=== PATIENT | male | born 1950 | race Caucasian/White ===

== ENCOUNTER 2020-03-28 07:07 | Outpatient (REF) | payer MEDICARE, SELFPAY ==
[2020-03-28 11:51] LABS: Cholesterol 217 mg/dL; Glucose Fasting 107 mg/dL (60-99); HDL Cholesterol 71 mg/dL; LDL Cholesterol Calculated 109 mg/dl; Triglycerides 185 mg/dL
[2020-03-28 11:52] LABS: Estimated Average Glucose 128 mg/dL; Hemoglobin A1c % 6.1 %
== END 2020-03-28 07:08 | disposition home or self-care (01) ==
LOC: HO.HMGCLDS 07:07
PROVIDERS: PCP Internal Medicine; Visit Provider Internal Medicine
DX: I10 Essential (primary) hypertension (principal); E78.5 Hyperlipidemia, unspecified; R73.01 Impaired fasting glucose
CPT/HCPCS: 80061; 82947; 83036

== ENCOUNTER 2020-03-30 11:25 | Outpatient (REF) | payer MEDICARE, SELFPAY ==
--- NOTE | 2020-03-30 11:30 | XR_ITS ---
EXAMINATION: XR KNEE, RIGHT CLINICAL INFORMATION: Pain. Strain of muscle and tendon COMPARISON: 06/02/2014 TECHNIQUE: Four views of the right knee. FINDINGS: Bones have normal alignment, and joint spaces are maintained. No acute fracture or subluxation. No significant arthritic deformity. There is negligible osteophyte formation at the upper pole of the patella. Small knee joint effusion is evident. No suspicious lytic or osteoblastic lesion. XR/XR knee RT 4V IMPRESSION: * No acute osseous injury at the right knee. No fracture or subluxation. * Small knee joint effusion is present.
== END 2020-03-30 11:26 | disposition home or self-care (01) ==
LOC: HO.HMGCX 11:25
PROVIDERS: PCP Internal Medicine; Visit Provider Internal Medicine
DX: S86.911A Strain of unspecified muscle(s) and tendon(s) at lower leg level, right leg, initial encounter (principal)
CPT/HCPCS: 73564

== ENCOUNTER 2020-08-15 06:31 | Day surgery (SDC) | payer MEDICARE, SELFPAY ==
[2020-08-09 15:17] VITALS: BMI 40.0
[2020-08-15] MEDS: Lactated Ringers 1,000 ML 100 ML IVCONT (06:30)
[2020-08-15 06:33] VITALS: BP 148/86; PULSE 56; RESP 20; TEMP 36.8; O2SAT 95
--- NOTE | 2020-08-15 07:31 | MHC.SHP ---
Pre-Procedural Eval Section B Chief Complaint: screening Details of Present Illness: see H&P Relevant Family History (Specify if Yes): No Relevant Social History: None Present Medications: see Short Stay Collaborative assessment Medical History: No relevant PMH History of Previous Operations: No relevant previous surgery Allergies: Allergies Allergy/AdvReac Type Severity Reaction Status Date / Time hydrocodone [From Vicodin] AdvReac Unknown agitation Verified 08/09/20 15:14 Review of Systems Sugical H&P ROS: Negative: Constitution, Cardiovascular, Respiratory, Neurological, Psychiatric, Hem-Onc, Allergic/Immunologic, Gastrointestinal, Genitourinary, Musculoskeletal, Integumentary, Endocrine and Eyes/Ears/Nose/Throat Exam Surgical H&P Exam: Normal: HEENT, Normal: Heart, Normal: Lungs, Normal: Extremities, Normal: Abdomen, Normal: Skin and Normal: Neurological Plan Diagnosis/Plan: Unchanged I have reviewed the history and physical and performed a pertinent physical examination on my patient. No changes have occurred unless specified.
--- NOTE | 2020-08-15 07:39 | P.CONAN_ITS ---
HPI - Anesthesia Eval Consult details Narrative: 69 yo male patient here for colonoscopy PMFSH Active Problems Active Problems: All Active Problems (Updated 03/30/20 @ 11:13 by Dotty Savage MD) Strain of right knee (Acute) Intolerance to BiPAP/CPAP (Acute) HERBERTH on CPAP (Acute) Irritable bowel syndrome with diarrhea (Acute) Essential hypertension (Acute) Impaired fasting glucose (Acute) Dyslipidemia (Acute) Past Medical History Medical History (Updated 08/15/20 @ 07:48 by Lucie Gallego) Bradycardia Dyslipidemia Essential hypertension Impaired fasting glucose Increased BMI Intolerance to BiPAP/CPAP Irritable bowel syndrome with diarrhea HERBERTH on CPAP Strain of right knee Family History Family History Father HTN (hypertension) Borderline diabetes mellitus Function kidney decreased Mother HTN (hypertension) Breast cancer Brother No problems noted. Brother No problems noted. Family history of problems with anesthesia: No Surgical History Surgical History (Updated 08/15/20 @ 07:49 by Lucie Gallego) H/O colonoscopy History of excision of pilonidal cyst History of Problems with Anesthesia: No Social History Social History Are you a primary care transitions nurse to a significant other at home: No Do you presently have visiting nurse or other home services: No Alcohol intake: current Smoking Status: Former smoker Smoking Quit Date: 2012 Advance Directives: No Advance Directives Information Provided: No Advance Directives on File: No Recently lost weight without trying: No Meds Allergies Allergy/AdvReac Type Severity Reaction Status Date / Time hydrocodone [From Vicodin] AdvReac Unknown agitation Verified 08/09/20 15:14 Active Medications: Current Medications Generic Name Dose Route Start Last Admin Trade Name Freq PRN Reason Stop Dose Admin Lactated Ringer's 1,000 mls @ 100 mls/hr 08/15/20 07:45 Lr IVCONT .Q10H ROSA Home Medications Medication Instructions Recorded Confirmed Last Taken Type flu vacc (65yr ml IM 03/30/20 Unknown History up)-MF59C(PF) 60 mcg(15 mcgx4)/0.5 mL IM syringe multivitamin 1 tab PO DAILY 03/30/20 08/09/20 Unknown History Exam Exam Date and Time: August 15, 2020 0739 Height,Weight and Vital Signs: Height 5 ft 6 in Weight 112.491 kg Last Vital Signs Temp 98.3 F 08/15/20 06:33 Pulse 56 08/15/20 06:33 Resp 20 08/15/20 06:33 BP 148/86 H 08/15/20 06:33 Pulse Ox 95 08/15/20 06:33 Airway Mallampati Class: II TM Dist: >3cm Neck ROM: Full Partial: Upper and Lower Loose/Missing/Broken Teeth: Yes (Many missing) Heart: RRR Lungs: CTAB Assessment and Plan Assessment Anesthesia Assessment: Anesthesia Plan Discussed and Chart Reviewed Final Anesthetic Review NPO: Yes ASA Class: III Final Preanesthetic Review: No Changes in Pt Med Stat, Meds/Allgs Chart Reviewed, Consent Obtained/Reviewed and Anes Risks/Benef Reviewed Patient Risk: Intermediate Procedure Risk: Low Assessment/Block/Sedation in SS: Assess/Block/Sedation-SS Anesthetic Plan Anesthetic Plan: MAC: Disposition: Standard PACU
[2020-08-15 08:05] VITALS: BP 98/50; PULSE 55; RESP 14; TEMP 36.2; O2SAT 93
--- NOTE | 2020-08-15 08:05 | PM.OP ---
Brief Operative Note Date of Service: 08/15/20 Pre-op diagnosis: screening Post-op diagnosis: same Procedure: colonoscopy Surgeon: Bob Doe Anesthesia: MAC Estimated blood loss (mL): 2 Pathology: other (polyp cecum) Condition: stable Disposition: PACU
[2020-08-15 08:20] VITALS: BP 115/61; PULSE 50; RESP 17; TEMP 36.2; O2SAT 96
--- NOTE | 2020-08-15 09:28 | OP_ITS ---
SURGEON: Bob Doe MD INDICATIONS: Colon cancer screening and prior history of tubular adenomas. PREOPERATIVE DIAGNOSIS: POSTOPERATIVE DIAGNOSIS: PROCEDURE PERFORMED: Colonoscopy to the cecum with biopsy. ESTIMATED BLOOD LOSS: COMPLICATIONS: ANESTHESIA: ASSISTANTS: SPECIMENS: MEDICATIONS: Monitored anesthesia care. DESCRIPTION OF PROCEDURE: History and physical performed. The risks and benefits of the procedure were explained to the patient. Informed consent was obtained. The patient was placed in left lateral decubitus position. A digital rectal exam was performed and was found to be normal. The Olympus pediatric video colonoscope was introduced into the rectum and advanced to the cecum without difficulty. The cecum was identified by transillumination, palpation, and identification of ileocecal valve. Examination was performed and the scope was removed. He tolerated the procedure well and was taken to recovery area in stable condition. FINDINGS: The terminal ileum was not examined. There was stool coating the mucosa in the cecum, which was very tenacious and sticky. This was washed and suctioned as best possible, but views were limited. There was a less than 5 mm sessile polyp in the cecum, which was removed with the biopsy forceps. No other polyps were identified. The quality of the prep was otherwise good. Retroflexed examination showed internal hemorrhoids. IMPRESSION: Colon polyp. RECOMMENDATION: Follow up the biopsy results. MD ANNIKA Lehman/JENIFFER / [id number]
== END 2020-08-15 09:00 | disposition home or self-care (01) ==
PROVIDERS: PCP Internal Medicine; Visit Provider Internal Medicine Gastroenterology
PROC: 0DJD8ZZ Inspection of Lower Intestinal Tract, Via Natural or Artificial Opening Endoscopic (ICD-10-PCS; CPT 45378; principal; 2020-08-15 07:30)
DX: Z12.11 Encounter for screening for malignant neoplasm of colon (principal); Z86.010 Personal history of colon polyps; Z80.0 Family history of malignant neoplasm of digestive organs; Z83.71 Family history of colonic polyps; K58.0 Irritable bowel syndrome with diarrhea; D12.0 Benign neoplasm of cecum; K64.8 Other hemorrhoids; I10 Essential (primary) hypertension; R73.01 Impaired fasting glucose; G47.33 Obstructive sleep apnea (adult) (pediatric); Z99.89 Dependence on other enabling machines and devices; Z79.899 Other long term (current) drug therapy; Z87.891 Personal history of nicotine dependence
CPT/HCPCS: 45380; 88305

== ENCOUNTER 2020-10-03 08:11 | Outpatient (REF) | payer MEDICARE, SELFPAY ==
[2020-10-03 11:53] LABS: Anion Gap 15 (12-20); Blood Urea Nitrogen 15 mg/dL (9-16); Calcium 8.8 mg/dL (8.4-10.2); Carbon Dioxide 25 mmol/L (22-29); Chloride 107 mmol/L (96-108); Cholesterol 198 mg/dL; Estimated Glomerular Filt Rate > 60; Glucose Fasting 120 mg/dL (60-99); HDL Cholesterol 71 mg/dL; LDL Cholesterol Calculated 102 mg/dl; Potassium 3.9 mmol/L (3.3-5.1); Sodium 143 mmol/L (135-145); Triglycerides 127 mg/dL
[2020-10-03 11:56] LABS: Estimated Average Glucose 123 mg/dL; Hemoglobin A1c % 5.9 %
== END 2020-10-03 08:12 | disposition home or self-care (01) ==
LOC: HO.HMGCLDS 08:11
PROVIDERS: PCP Internal Medicine; Visit Provider Internal Medicine
DX: E78.5 Hyperlipidemia, unspecified (principal); I10 Essential (primary) hypertension; R73.01 Impaired fasting glucose
CPT/HCPCS: 36415; 80048; 80061; 83036

== ENCOUNTER 2021-02-09 09:32 | Outpatient (REF) | payer MEDICARE, SELFPAY ==
[2021-02-09 11:55] LABS: Anion Gap 12 (12-20); Blood Urea Nitrogen 19 mg/dL (9-16); Calcium 9.4 mg/dL (8.4-10.2); Carbon Dioxide 28 mmol/L (22-29); Chloride 106 mmol/L (96-108); Estimated Glomerular Filt Rate > 60; Glucose Fasting 115 mg/dL (60-99); Potassium 4.4 mmol/L (3.3-5.1); Sodium 142 mmol/L (135-145)
== END 2021-02-09 09:33 | disposition home or self-care (01) ==
LOC: HO.HMGCLDS 09:32
PROVIDERS: PCP Internal Medicine; Visit Provider Internal Medicine
DX: I10 Essential (primary) hypertension (principal)
CPT/HCPCS: 36415; 80048

== ENCOUNTER 2021-05-24 07:48 | Outpatient (REF) | payer MEDICARE, SELFPAY ==
[2021-05-24 11:42] LABS: Estimated Average Glucose 126 mg/dL
[2021-05-24 12:09] LABS: PSA,Total (Free>4and<10) 2.77 ng/mL (0.00-4.00)
[2021-05-24 12:10] LABS: Alanine Aminotransferase 31 U/L (0-40); Albumin Level 4.1 g/dL (3.5-5.0); Alkaline Phosphatase 67 U/L (39-117); Anion Gap 13 (12-20); Aspartate Amino Transferase 26 U/L (5-37); Bilirubin Total 1.2 mg/dL (0.0-1.0); Blood Urea Nitrogen 14 mg/dL (9-16); Calcium 9.3 mg/dL (8.4-10.2); Carbon Dioxide 25 mmol/L (22-29); Chloride 109 mmol/L (96-108); Cholesterol 213 mg/dL; Estimated Glomerular Filt Rate > 60; Glucose Fasting 109 mg/dL (60-99); HDL Cholesterol 71 mg/dL; LDL Cholesterol Calculated 114 mg/dl; Sodium 143 mmol/L (135-145); Triglycerides 141 mg/dL
== END 2021-05-24 07:49 | disposition home or self-care (01) ==
LOC: HO.HMGCLDS 07:48
PROVIDERS: Visit Provider Internal Medicine
DX: E66.01 Morbid (severe) obesity due to excess calories (principal); I10 Essential (primary) hypertension; E78.5 Hyperlipidemia, unspecified; K58.0 Irritable bowel syndrome with diarrhea; R73.01 Impaired fasting glucose; Z12.5 Encounter for screening for malignant neoplasm of prostate
CPT/HCPCS: 36415; 80053; 80061; 83036; 84153

== ENCOUNTER 2021-09-10 15:56 | Observation (INO) | payer MEDICARE, SELFPAY ==
--- NOTE | ~2021-09-10 | XR_ITS ---
EXAMINATION: XR PELVIS CLINICAL INFORMATION: Fall. COMPARISON: None TECHNIQUE: AP view of the pelvis. FINDINGS: The bones and soft tissues are normal. No fracture. Sacroiliac and hip joints are normal. Pubic symphysis is normal. No abnormal soft tissue calcifications. XR/XR pelvis 1-2V IMPRESSION: Unremarkable AP pelvis exam.
--- NOTE | ~2021-09-10 | CT_ITS ---
EXAMINATION: CT HEAD WITHOUT CONTRAST CT CERVICAL SPINE WITHOUT CONTRAST CLINICAL INFORMATION: Trauma. Fall. COMPARISON: None. TECHNIQUE: Imaging was performed from the skull base to vertex without intravenous administration of contrast. In addition, helical noncontrast CT imaging was acquired through the cervical spine and source images were reviewed along with axial reconstructions and sagittal and coronal MPRs. [This CT examination was performed using dose optimization techniques as appropriate, variously including the following: *Automated exposure control *Adjustment of mA and/or kV according to patient size (this includes techniques or standardized protocols for targeted exams where dose is matched to indication/reason for exam; i.e. extremities or head) *Use of iterative reconstruction technique] DLP: 1476 mGy-cm FINDINGS: HEAD: No skull fracture. There is a scalp hematoma the left vertex. No intracranial mass, hemorrhage, or midline shift is visualized. The ventricles and sulci are proportional. No extra-axial collections are identified. There are vascular calcification of the internal carotid arteries at the carotid artery siphon bilaterally. The paranasal sinuses and mastoid air cells are well aerated. CERVICAL SPINE: There is no evidence of acute cervical spine fracture. Vertebral bodies remain normal in height. Cervical vertebrae have normal alignment. There is multilevel degenerative spondylosis of the cervical spine with disc height narrowing and endplate spurs and facet joint arthrosis No pre- or paravertebral soft tissue abnormality is identified. Limited assessment of the lung apices is unremarkable. CT/CT cervical spine wo con IMPRESSION: 1. No acute intracranial pathology. 2. No CT evidence of acute cervical spine fracture or traumatic subluxation
--- NOTE | ~2021-09-10 | CT_ITS ---
EXAMINATION: CT HEAD WITHOUT CONTRAST CT CERVICAL SPINE WITHOUT CONTRAST CLINICAL INFORMATION: Trauma. Fall. COMPARISON: None. TECHNIQUE: Imaging was performed from the skull base to vertex without intravenous administration of contrast. In addition, helical noncontrast CT imaging was acquired through the cervical spine and source images were reviewed along with axial reconstructions and sagittal and coronal MPRs. [This CT examination was performed using dose optimization techniques as appropriate, variously including the following: *Automated exposure control *Adjustment of mA and/or kV according to patient size (this includes techniques or standardized protocols for targeted exams where dose is matched to indication/reason for exam; i.e. extremities or head) *Use of iterative reconstruction technique] DLP: 1476 mGy-cm FINDINGS: HEAD: No skull fracture. There is a scalp hematoma the left vertex. No intracranial mass, hemorrhage, or midline shift is visualized. The ventricles and sulci are proportional. No extra-axial collections are identified. There are vascular calcification of the internal carotid arteries at the carotid artery siphon bilaterally. The paranasal sinuses and mastoid air cells are well aerated. CERVICAL SPINE: There is no evidence of acute cervical spine fracture. Vertebral bodies remain normal in height. Cervical vertebrae have normal alignment. There is multilevel degenerative spondylosis of the cervical spine with disc height narrowing and endplate spurs and facet joint arthrosis No pre- or paravertebral soft tissue abnormality is identified. Limited assessment of the lung apices is unremarkable. CT/CT head/brain wo con IMPRESSION: 1. No acute intracranial pathology. 2. No CT evidence of acute cervical spine fracture or traumatic subluxation
[2021-09-10 16:24] VITALS: BP 140/87; PULSE 97; RESP 18; TEMP 36.9; O2SAT 97; BMI 37.5
--- NOTE | 2021-09-10 16:28 | ECG_ITS ---
Test Reason : SYNCOPE Blood Pressure : / mmHG Vent. Rate : 061 BPM Atrial Rate : 061 BPM P-R Int : 166 ms QRS Dur : 156 ms QT Int : 454 ms P-R-T Axes : 002 263 047 degrees QTc Int : 457 ms Normal sinus rhythm with sinus arrhythmia Right bundle branch block Possible Lateral infarct , age undetermined Abnormal ECG No previous ECGs available Referred By: Naresh Smith Electronically Signed By:Steven Byers
[2021-09-10] MEDS: 0.9 % Sodium Chloride 1,000 ML 999 ML IV (16:50)
[2021-09-10 17:17] LABS: MANUAL DIFF FLAG NO
[2021-09-10 17:29] LABS: INTERNATIONAL NORM RATIO 1.1 (0.9-1.1); Prothrombin Time 12.3 SEC (9.9-13.0)
[2021-09-10 17:37] LABS: Alanine Aminotransferase 42 U/L (0-40); Albumin Level 4.2 g/dL (3.5-5.0); Alkaline Phosphatase 68 U/L (39-117); Anion Gap 13 (12-20); Aspartate Amino Transferase 39 U/L (5-37); Bilirubin Total 1.2 mg/dL (0.0-1.0); Blood Urea Nitrogen 24 mg/dL (9-16); Calcium 9.5 mg/dL (8.4-10.2); Carbon Dioxide 25 mmol/L (22-29); Chloride 103 mmol/L (96-108); Creatinine Clr Calc Pharmacy 69.5; Estimated Glomerular Filt Rate > 60; Glucose Random 102 mg/dL (60-115); Potassium 5.4 mmol/L (3.3-5.1); Sodium 136 mmol/L (135-145)
[2021-09-10 17:42] LABS: Troponin-I High Sensitivity 7.7 ng/L (<3.5-35.0)
[2021-09-10 17:44] LABS: Basophils Percent Auto 0.4 % (0-2); Eosinophils Absolute Auto 0.1 X10*3/uL (0.0-0.4); Hematocrit 42.9 % (42.0-52.0); Hemoglobin 14.3 g/dl (14.0-18.0); Imm Gran Abs Auto 0.06 X10*3/uL (0.00-0.03); Imm Gran Pct Auto 0.7 % (0.0-0.4); Lymphocytes Absolute Auto 1.5 X10*3/uL (1.2-4.9); Lymphocytes Percent Auto 18.3 % (20-40); Mean Corpuscular HGB Conc 33.3 g/dl (31.0-36.0); Mean Corpuscular Hemoglobin 34.5 pg (27.0-33.0); Mean Corpuscular Volume 103.4 fL (80.0-98.0); Mean Platelet Volume 10.3 fL (9.4-12.4); Monocytes Absolute Auto 0.7 X10*3/uL (0.1-1.2); Monocytes Percent Auto 8.8 % (2-11); Neutrophils Absolute Auto 5.9 x10*3/uL (2.0-8.3); Neutrophils Percent Auto 70.8 % (45-73); Platelet Count 179 X10*3/uL (160-400); Red Blood Count 4.15 X10*6/uL (4.60-5.80); Red Cell Distribution Width 12.6 % (11.0-16.0); White Blood Count 8.3 X10*3/uL (4.8-10.8)
--- NOTE | 2021-09-10 19:03 | ED_ITS ---
HPI - General Adult General Chief complaint: Syncope Stated complaint: FALL,+LOC,+CCOLLAR,FROM MD OFFICE, PER EMS Time Seen by Provider: 09/10/21 16:20 Source: patient Mode of arrival: ambulatory Limitations: no limitations History of Present Illness HPI narrative: 71-year-old male history of high blood pressure presents to the ED for syncopal episodes while mowing the lawn. Patient states he was mowing the lawn in his yd and when he turned the corner he woke up on the ground. Patient states he was unaware of how long he lost consciousness. Patient states feeling lightheaded before syncopal episode. Patient denies having any chest pain, shortness of breath, abdominal pain, or headache before passing out. Patient thinks he passed out due to dehydration and not drinking enough water. Related Data Home Medications Medication Instructions Recorded Confirmed flu vacc (65yr ml IM 03/30/20 01/25/21 up)-MF59C(PF) 60 mcg(15 mcgx4)/0.5 mL IM syringe multivitamin 1 tab PO DAILY 03/30/20 01/25/21 doxycycline hyclate 20 mg tablet 20 mg PO BID 09/10/21 Previous Rx's Medication Instructions Recorded lisinopril 5 mg tablet 5 mg PO DAILY #30 tab 04/11/21 dicyclomine 20 mg tablet 20 mg PO TID #270 tab 07/10/21 Allergies Allergy/AdvReac Type Severity Reaction Status Date / Time hydrocodone [From Vicodin] AdvReac Unknown agitation Verified 09/10/21 14:47 Review of Systems Review of Systems: Syncopal episode while mowing the lawn Yes all other systems are reviewed and are negative [facility] Past Medical History Medical History (Updated 09/10/21 @ 19:24 by NEFTALI Gandhi) Alcohol use disorder, mild, in controlled environment Bradycardia Dyslipidemia Essential hypertension Essential hypertension Impaired fasting glucose Increased BMI Intolerance to BiPAP/CPAP Irritable bowel syndrome with diarrhea Morbid obesity due to excess calories HERBERTH on CPAP Strain of right knee Tubular adenoma of colon Surgical History H/O colonoscopy History of excision of pilonidal cyst Family History Family History Father HTN (hypertension) Borderline diabetes mellitus Function kidney decreased Mother HTN (hypertension) Breast cancer Brother No problems noted. Brother No problems noted. Social History Social History Housing: House Are you a primary medicare sales executive to a significant other at home: No Do you presently have visiting nurse or other home services: No Alcohol intake: current Patient Tobacco Use Status: Former Tobacco user Years Smoked: 40 yrs e-Cigarette/Vaping Use: Never Used Second Hand Smoke Exposure: No Advance Directives: No Advance Directives Information Provided: No service: No Current occupational status: retired Physical Exam ED Vital Signs: Vital Signs - 24 hr 09/10/21 16:24 Temperature 98.4 F Pulse Rate 97 Respiratory Rate 18 Blood Pressure 140/87 H Pulse Oximetry 97 BMI result Body Mass Index 37.5 Const General: cooperative, healthy appearing, comfortable, no acute distress, well developed, alert, awake and Physically active Orientation/consciousness: patient oriented x3 HENMT Head: Yes normal to inspection, Yes No palpable skull fracture present, Yes normocephalic, Yes atraumatic and No abrasion Eyes General: appearance normal, both eyes and all related structures Neck Neck: Yes normal visual inspection, Yes full ROM, Yes no lymphadenopathy, Yes no meningeal signs, Yes trachea midline, Yes supple, No anterior neck swelling and No tender Chest Chest palpation & inspection: normal inspection of the chest and normal palpation of entire chest wall Resp Effort & Inspection: normal respiratory effort and able to speak in complete sentences Cardio Jugular venous distension: no JVD Heart sounds: S1 normal heart sound present and S2 normal heart sound present GI Inspection: Yes normal to inspection and No abdominal wall ecchymosis Palpation (GI): Soft to palpation, not firm, nontender, no guarding and not rigid General: No CVA tenderness and Yes no CVA tenderness Back/Spine/Pelvis Back: no CVA tenderness, No CVA tenderness and No back tenderness Skin General skin exam: no rashes or lesions noted and elasticity normal Neuro Other: negative for any neuro deficits. General: patient oriented x3, gait normal, no meningeal signs and CN's II-XI intact bilaterally Cranial nerves: Yes CN's II-XII intact bilaterally Extrem Other: lower extremity negative for swelling, pitting edema, or calf tenderness. General: Yes normal to inspection and Yes full ROM Psych Appearance: grossly normal, well kempt and not disheveled Course Course Course Narrative: EKG and labs ordered for syncope. Reevaluation(s) Reevaluation #1: EKG negative STEMI but shows right bundle branch block. no prior EKG to compare. First troponin negative. Head CT cervical spine CT normal. CPK 600 IV fluids given. Due to age was discussed with hospitalist for admission for syncope.. He recommend D-dimer to make sure patient is not having a PE. Patient admitted for syncopal episode. Time: 19:22 Medical Decision Making MDM Narrative Medical decision making narrative: syncope Lab Data Result diagrams: 09/10/21 17:12 09/10/21 17:12 Labs: Lab Results 09/10/21 09/10/21 09/10/21 Range/Units 17:12 17:12 17:12 WBC 8.3 (4.8-10.8) X10*3/uL RBC 4.15 L (4.60-5.80) X10*6/uL Hgb 14.3 (14.0-18.0) g/dl Hct 42.9 (42.0-52.0) % MCV 103.4 H (80.0-98.0) fL MCH 34.5 H (27.0-33.0) pg MCHC 33.3 (31.0-36.0) g/dl RDW 12.6 (11.0-16.0) % Plt Count 179 (160-400) X10*3/uL MPV 10.3 (9.4-12.4) fL Immature Gran % (Auto) 0.7 H (0.0-0.4) % Neut % (Auto) 70.8 (45-73) % Lymph % (Auto) 18.3 L (20-40) % [place] % (Auto) 8.8 (2-11) % Eos % (Auto) 1.0 (0-4) % Baso % (Auto) 0.4 (0-2) % Lymph # (Auto) 1.5 (1.2-4.9) X10*3/uL [place] # (Auto) 0.7 (0.1-1.2) X10*3/uL Eos # (Auto) 0.1 (0.0-0.4) X10*3/uL Baso # (Auto) 0.0 (0.0-0.2) X10*3/uL Abs Immat Gran (auto) 0.06 H (0.00-0.03) X10*3/uL Absolute Neuts (auto) 5.9 (2.0-8.3) x10*3/uL Absolute Nucleated RBC 0.000 (0.0-0.012) X10*3/uL Nucleated RBC % (auto) 0.0 (0.0-0.2) /100WBC PT 12.3 (9.9-13.0) SEC INR 1.1 (0.9-1.1) APTT 31.0 (24.1-38.0) SEC Sodium 136 (135-145) mmol/L Potassium 5.4 H D (3.3-5.1) mmol/L Chloride 103 (96-108) mmol/L Carbon Dioxide 25 (22-29) mmol/L Anion Gap 13 (12-20) BUN 24 H D (9-16) mg/dL Creatinine 1.11 (0.5-1.4) mg/dL Estim Creat Clear Calc 69.5 Estimated GFR > 60 Random Glucose 102 (60-115) mg/dL Calcium 9.5 (8.4-10.2) mg/dL Total Bilirubin 1.2 H (0.0-1.0) mg/dL AST 39 H D (5-37) U/L ALT 42 H (0-40) U/L Alkaline Phosphatase 68 (39-117) U/L Total Creatine Kinase 615 H (38-174) U/L Troponin I High Sens (<3.5-35.0) ng/L Total Protein 7.0 (6.5-8.0) g/dL Albumin 4.2 (3.5-5.0) g/dL 09/10/21 Range/Units 17:12 WBC (4.8-10.8) X10*3/uL RBC (4.60-5.80) X10*6/uL Hgb (14.0-18.0) g/dl Hct (42.0-52.0) % MCV (80.0-98.0) fL MCH (27.0-33.0) pg MCHC (31.0-36.0) g/dl RDW (11.0-16.0) % Plt Count (160-400) X10*3/uL MPV (9.4-12.4) fL Immature Gran % (Auto) (0.0-0.4) % Neut % (Auto) (45-73) % Lymph % (Auto) (20-40) % [place] % (Auto) (2-11) % Eos % (Auto) (0-4) % Baso % (Auto) (0-2) % Lymph # (Auto) (1.2-4.9) X10*3/uL [place] # (Auto) (0.1-1.2) X10*3/uL Eos # (Auto) (0.0-0.4) X10*3/uL Baso # (Auto) (0.0-0.2) X10*3/uL Abs Immat Gran (auto) (0.00-0.03) X10*3/uL Absolute Neuts (auto) (2.0-8.3) x10*3/uL Absolute Nucleated RBC (0.0-0.012) X10*3/uL Nucleated RBC % (auto) (0.0-0.2) /100WBC PT (9.9-13.0) SEC INR (0.9-1.1) APTT (24.1-38.0) SEC Sodium (135-145) mmol/L Potassium (3.3-5.1) mmol/L Chloride (96-108) mmol/L Carbon Dioxide (22-29) mmol/L Anion Gap (12-20) BUN (9-16) mg/dL Creatinine (0.5-1.4) mg/dL Estim Creat Clear Calc Estimated GFR Random Glucose (60-115) mg/dL Calcium (8.4-10.2) mg/dL Total Bilirubin (0.0-1.0) mg/dL AST (5-37) U/L ALT (0-40) U/L Alkaline Phosphatase (39-117) U/L Total Creatine Kinase (38-174) U/L Troponin I High Sens 7.7 (<3.5-35.0) ng/L Total Protein (6.5-8.0) g/dL Albumin (3.5-5.0) g/dL ECG Data Interpretation: normal sinus rhythm. Right bundle branch block. Ventricular rate 61. Pr interval 166 pr QRS 156 pr QTC 457. Negative STEMI Discharge Plan Discharge Clinical Impression: Syncope Patient Disposition: Admitted As Inpatient
--- NOTE | 2021-09-10 19:16 | P.HPHOSP_ITS ---
History of Present Illness Date of Service: 09/10/21 Chief Complaint: syncope 71-year-old male with a past medical history of hypertension, hyperlipidemia, history of bradycardia, obesity, HERBERTH on CPAP, osteoarthritis, irritable bowel syndrome, impaired fasting glucose; presented to the hospital today with a chief complaint of syncope. Patient reported that he was moving his LAWN, he felt a diaphoretic,ligh theaded and followed by had a syncopal episode -lasted for few seconds; landed on the hips; when he woke up he was on the ground; denied any chest pain or palpitations. Denied any seizure-like activity. Denied any nausea or vomiting. Patient denies any neck pain, back pain, hip pain; denies any GI symptoms. Review of all other systems is negative except mentioned above ER course: Per ER team patient's exam was nonfocal; CT head and CT cervical spine showed no acute findings; EKG showed right bundle-branch block; nonischemic; troponin was negative; admitted to the hospital for further management. [facility] Medical History (Updated 09/10/21 @ 19:24 by NEFTALI Gandhi) Alcohol use disorder, mild, in controlled environment Bradycardia Dyslipidemia Essential hypertension Essential hypertension Impaired fasting glucose Increased BMI Intolerance to BiPAP/CPAP Irritable bowel syndrome with diarrhea Morbid obesity due to excess calories HERBERTH on CPAP Strain of right knee Tubular adenoma of colon Family History Father HTN (hypertension) Borderline diabetes mellitus Function kidney decreased Mother HTN (hypertension) Breast cancer Brother No problems noted. Brother No problems noted. Surgical History H/O colonoscopy History of excision of pilonidal cyst Social History Housing: House Are you a primary acute care nurse to a significant other at home: No Do you presently have visiting nurse or other home services: No Alcohol intake: current Patient Tobacco Use Status: Former Tobacco user Years Smoked: 40 yrs e-Cigarette/Vaping Use: Never Used Second Hand Smoke Exposure: No Advance Directives: No Advance Directives Information Provided: No service: No Current occupational status: retired Meds Allergies Allergy/AdvReac Type Severity Reaction Status Date / Time hydrocodone [From Vicodin] AdvReac Unknown agitation Verified 09/10/21 14:47 Active Medications: Current Medications Acetaminophen (Acetaminophen 325 Mg Tablet) 650 mg PO Q6H PRN PRN Reason: Pain, Mild (Pain Scale 1-3) Heparin Sodium (Porcine) (Heparin Sodium,Porcine 5,000 Unit/Ml Vial) 5,000 unit SUBCUT Q8H [facility] Sodium Chloride (Ns) 1,000 mls @ 100 mls/hr IVCONT .Q10H [facility] Melatonin (Melatonin 3 Mg Tablet) 6 mg PO BEDTIME PRN PRN Reason: Insomnia Pharmacy Consult (Consult Rx Perform Med Rec) 1 each MISCELLANE ONCE PRN PRN Reason: Consult order Pharmacy Consult (Consult Rx Perform Med Rec) 1 each MISCELLANE ONCE STA Stop: 09/10/21 19:05 Senna (Sennosides 8.6 Mg Tablet) 17.2 mg PO BEDTIME PRN PRN Reason: Constipation Sodium Chloride (0.9 % Sodium Chloride Flush 3 Ml Syringe) 3 ml IVFLUSH QSHIFT [facility] Home Medications Medication Instructions Recorded Confirmed Last Taken Type flu vacc 2020-(65yr ml IM 03/30/20 01/25/21 Unknown History up)-MF59C(PF) 60 mcg(15 mcgx4)/0.5 mL IM syringe multivitamin 1 tab PO DAILY 03/30/20 01/25/21 Unknown History doxycycline hyclate 20 mg tablet 20 mg PO BID 09/10/21 Unknown History Physical Exam Vital Signs and Narrative: Vital Signs: Last Vital Signs Temp 98.4 F 09/10/21 16:24 Pulse 97 09/10/21 16:24 Resp 18 09/10/21 16:24 BP 140/87 H 09/10/21 16:24 Pulse Ox 97 09/10/21 16:24 BMI result Body Mass Index 37.5 Gen: Appears be in no acute distress HEENT: NCAT, Moist mucosa. Pulmonary: Vesicular breath sounds, fair air entry CVS: Normal S1-S2 Abdomen: BS+, Soft, Nontender Extremities: Warm well perfused Neuro: Alert and awake. Grossly nonfocal Results Labs CBC and Chem 7: 09/10/21 17:12 09/10/21 17:12 Labs: Laboratory Results - last 24 hr 09/10/21 09/10/21 09/10/21 17:12 17:12 17:12 MCV 103.4 H MCH 34.5 H MCHC 33.3 RDW 12.6 Plt Count 179 MPV 10.3 Immature Gran % (Auto) 0.7 H Neut % (Auto) 70.8 Lymph % (Auto) 18.3 L [place] % (Auto) 8.8 Eos % (Auto) 1.0 Baso % (Auto) 0.4 Lymph # (Auto) 1.5 [place] # (Auto) 0.7 Eos # (Auto) 0.1 Baso # (Auto) 0.0 Abs Immat Gran (auto) 0.06 H Absolute Neuts (auto) 5.9 Absolute Nucleated RBC 0.000 Nucleated RBC % (auto) 0.0 PT 12.3 INR 1.1 APTT 31.0 Anion Gap 13 Estim Creat Clear Calc 69.5 Estimated GFR > 60 Random Glucose 102 Calcium 9.5 Total Bilirubin 1.2 H AST 39 H D ALT 42 H Alkaline Phosphatase 68 Total Creatine Kinase 615 H Troponin I High Sens Total Protein 7.0 Albumin 4.2 09/10/21 17:12 MCV MCH MCHC RDW Plt Count MPV Immature Gran % (Auto) Neut % (Auto) Lymph % (Auto) [place] % (Auto) Eos % (Auto) Baso % (Auto) Lymph # (Auto) [place] # (Auto) Eos # (Auto) Baso # (Auto) Abs Immat Gran (auto) Absolute Neuts (auto) Absolute Nucleated RBC Nucleated RBC % (auto) PT INR APTT Anion Gap Estim Creat Clear Calc Estimated GFR Random Glucose Calcium Total Bilirubin AST ALT Alkaline Phosphatase Total Creatine Kinase Troponin I High Sens 7.7 Total Protein Albumin Imaging Radiologist's Impressions: Impressions Cervical Spine CT 09/10/21 16:51 IMPRESSION: 1. No acute intracranial pathology. 2. No CT evidence of acute cervical spine fracture or traumatic subluxation Head CT 09/10/21 16:51 IMPRESSION: 1. No acute intracranial pathology. 2. No CT evidence of acute cervical spine fracture or traumatic subluxation Assessment and Plan (1) Syncope: Status: Acute Plan 71-year-old male with a past medical history of hypertension, hyperlipidemia, history of bradycardia, obesity, HERBERTH on CPAP, osteoarthritis, irritable bowel syndrome, impaired fasting glucose; presented to the hospital today with a chief complaint of syncope. syncope: Question vasovagal versus dehydration Will obtain orthostatic vitals EKG showed right bundle-branch block Initial troponin negative, cycle cardiac enzymes Telemetry Cardiology consult Echocardiogram gentle IV fluids Fall: Secondary to syncope. Patient landed on the hips. CT head and CT C- spine showed no acute findings. Will also pelvis x-ray history of hypertension / hyperlipidemia: Continue home medications History of HERBERTH: Continue home CPAP DVT prophylaxis: Subcu heparin Code status: Full code Quality Stroke Does the patient have a stroke diagnosis?: No VTE Prior VTE?: No VTE Risk Level:: Medical - moderate - high VTE Device Contraindication: Treatment Not Indicated VTE Drug Contraindication: N/A - Med Ordered
[2021-09-10] MEDS: 0.9 % Sodium Chloride 1,000 ML 100 ML IVCONT (20:00)
[2021-09-10] MEDS: Heparin Sodium,Porcine 5,000 UNIT/ML VIAL 5000 UNIT SUBCUT (20:00)
--- NOTE | 2021-09-10 20:02 | PHA.MEDREC ---
Pharmacy Consult ? Medication Reconciliation Pharmacy has completed the medication reconciliation.
[2021-09-10 20:04] LABS: D Dimer High Sensitivity 786 NG/ML
[2021-09-10 20:41] VITALS: BP 138/60; PULSE 62; RESP 20; O2SAT 98; O2SAT 99
[2021-09-10] MEDS: 0.9 % Sodium Chloride 1,000 ML 75 ML IVCONT (20:46)
[2021-09-10 21:35] VITALS: BP 139/68; PULSE 59; RESP 23; TEMP 37.2; O2SAT 95
[2021-09-10 21:57] LABS: COVID-19 Test Negative (Negative); IDNOW Serial# 16C4AD1C; Influenza A Negative (Negative); Influenza B2 Negative (Negative)
[2021-09-10 22:45] LABS: Appearance Urine CLEAR; Color Urine YELLOW; Glucose Urine UA NEG (NEG); Leukocyte Esterase Urine NEG (NEG); Nitrite Urine NEG (NEG); PH 5.5 (5.0-8.0); Specific Gravity - Urine 1.025 (1.005-1.025); Urine Blood NEG (NEG); Urine Ketones 40 MG/DL (NEG); Urine Protein NEG (NEG-TRACE)
[2021-09-10 22:56] VITALS: BP 137/81; PULSE 57; RESP 25; O2SAT 94
[2021-09-10] MEDS: 0.9 % Sodium Chloride Flush 3 ML SYRINGE IVFLUSH (23:02)
[2021-09-11] VITALS (8 sets, daily range): BP systolic 115–147; BP diastolic 53–68; PULSE 55–63; RESP 12–20; TEMP 36.1–36.7; O2SAT 96–97
[2021-09-11 05:06] LABS: Basophils Percent Auto 0.4 % (0-2); Eosinophils Absolute Auto 0.2 X10*3/uL (0.0-0.4); Eosinophils Percent Auto 2.9 % (0-4); Hemoglobin 13.7 g/dl (14.0-18.0); Imm Gran Abs Auto 0.02 X10*3/uL (0.00-0.03); Imm Gran Pct Auto 0.3 % (0.0-0.4); Lymphocytes Absolute Auto 1.9 X10*3/uL (1.2-4.9); Lymphocytes Percent Auto 28.4 % (20-40); MANUAL DIFF FLAG NO; Mean Corpuscular HGB Conc 33.4 g/dl (31.0-36.0); Mean Corpuscular Hemoglobin 34.3 pg (27.0-33.0); Mean Corpuscular Volume 102.5 fL (80.0-98.0); Mean Platelet Volume 9.9 fL (9.4-12.4); Monocytes Absolute Auto 0.8 X10*3/uL (0.1-1.2); Monocytes Percent Auto 12.1 % (2-11); Neutrophils Absolute Auto 3.8 x10*3/uL (2.0-8.3); Neutrophils Percent Auto 55.9 % (45-73); Platelet Count 171 X10*3/uL (160-400); Red Cell Distribution Width 12.7 % (11.0-16.0); White Blood Count 6.8 X10*3/uL (4.8-10.8)
[2021-09-11 05:36] LABS: Anion Gap 11 (12-20); Blood Urea Nitrogen 19 mg/dL (9-16); Carbon Dioxide 27 mmol/L (22-29); Chloride 106 mmol/L (96-108); Estimated Glomerular Filt Rate > 60; Glucose Random 104 mg/dL (60-115); Potassium 4.6 mmol/L (3.3-5.1); Sodium 139 mmol/L (135-145)
[2021-09-11] MEDS: Heparin Sodium,Porcine 5,000 UNIT/ML VIAL 5000 UNIT SUBCUT (06:10)
--- NOTE | 2021-09-11 07:00 | CA_ITS ---
Transthoracic Echocardiogram Patient (Last, First, Middle): Mert Gonzalez E Gender: Male Date of : 1950 Age: 71 Procedure Date: 09/11/2021 Procedure Type: Transthoracic Echocardiogram Location: ER Height: 167.64 cm Weight: 105.69 kg BSA: 2.13 m2 Heart Rate: bpm BP: 116 / 67 mmHg Evening Or Night Nurse Supervisor: VH/TO Referring MD: Jon Hatch MD Symptoms: syncope Study Quality: Fair ECG Rhythm: Sinus Conclusions: - Normal left ventricular size and systolic function. There is mildly increased left ventricular wall thickness. The visually estimated ejection fraction is between 55-60%. - Mildly increased right ventricular cavity size. There is normal right ventricular systolic function. - Small calcified nodule is noticed on the non coronary cusp of the aortic valve. This is seen only in the long axis view. This is likely aortic valve calcification but a calcified mass /old vegetation cannot be ruled out. - There is mild dilatation of the ascending aorta measuring 3.70 cm. Findings Procedure Information Contrast agent, definity, is being given per protocol without apparent complications. Left Ventricle Normal left ventricular size and systolic function. There is mildly increased left ventricular wall thickness. The visually estimated ejection fraction is between 55-60%. Abnormal diastolic function is noted. Spectral Doppler is indicative of an impaired relaxation filling pattern. E/E prime ratio is between 8 and 15 consistent with indeterminate filling pressures. Right Ventricle Mildly increased right ventricular cavity size. There is normal right ventricular systolic function. Atria The left atrium is likely dilated. The right atrium is likely dilated. Aortic Valve There is a normal trileaflet aortic valve. There is mild calcification of the aortic valve. There is no aortic valve stenosis. There is no aortic valve regurgitation. Small calcified nodule is noticed on the non coronary cusp of the aortic valve. This is seen only in the long axis view. This is likely aortic valve calcification but a calcified mass /old vegetation cannot be ruled out. Mitral Valve The mitral valve appears normal. There is no mitral valve regurgitation. There is no mitral valve stenosis. Pulmonic Valve Normal pulmonic valve structure and function. There is trace pulmonic valve regurgitation. Tricuspid Valve Normal tricuspid valve structure and function. There is trace tricuspid valve regurgitation. Normal right atrial pressure. There is no evidence of pulmonary hypertension. Great Vessels There is mild dilatation of the ascending aorta measuring 3.70 cm. The visualized portions of the pulmonary artery and branches are normal. Venous The inferior vena cava is normal in size and collapses greater than 50% with inspiration. Pericardium/Pleural There is no evidence of pericardial effusion. Prior Study Comparison No prior study available for comparison. Measurements 2D Linear Measurements IVSd: 1.21 0.6-0.9/0.6-1.0 cm LVIDd: 5.42 3.9-5.3/4.2-5.9 cm LVIDd Index: 2.54 2.4-3.2/2.2-3.1 cm/m2 LVIDs: 3.33 2.0-3.6 cm LVPWd: 1.24 0.7-1.1 cm LA Diam: 3.10 2.7-3.8/3.0-4.0 cm LAIDs Index: 1.46 1.5-2.3 cm/m2 LV Mass: 341.35 67-162/88-224 g LV Mass Index: 160.26 43-95/49-115 g/m2 LVOT Diam: 2.00 3.0+(-)1.3 cm 2D Systolic Function EF 4C: 59.60 >55% EF 2C: 63.10 >55% EF BiP: 61.40 >55% Mitral Valve MV Pk E: 0.75 MV PK A: 0.90 MV Decel Time: 236.00 E/A: 0.80 E'Lateral: 8.05 E'Medial: 6.53 E/E' Med: 11.40 E/E' Lat: 9.30 PHT: 69.00 MVA PHT: 3.19 Decel Piatt: 3.16 Aortic Valve AoV Pk Antoine: 1.68 AoV Mn Antoine: 1.10 AoV VTI: 0.35 AoV Pk Grad: 11.00 Aov Mn Grad: 6.00 HUA Cont.VTI: 2.70 LVOT LVOT Pk Antoine: 1.47 LVOT Mn Antoine: 0.89 LVOT VTI: 0.30 LVOT Pk Grad: 9.00 LVOT Mn Grad: 4.00 LVOT Diam: 2.00 LVOT Area: 3.14 Diastolic Function MV Pk E: 0.75 MV Pk A: 0.90 E/A: 0.80 E'Medial: 6.53 E/E' Med: 11.40 E' Laterial: 8.05 E/E' Lat: 9.30 Right Ventricle TAPSE (mm): 22.40 TVS' Antoine: 10.20 Tricuspid Valve TR Pk Antoine: 1.49 TR Pk Grad: 9.00 RA Press: 3.00 RVSP: 12.00 Great Vessels Aorta Sinus of Valsalva: 3.30 2.0-3.[address] [place]: 2.59 1.7-3.4 cm Ao Asc: 3.70 2.1-3.4 cm Pulmonary Valve PV Pk Antoine: 1.11 Peak PV Grad: 5.00 Updated in Other Vendor System with Status of Final Steven Byers MD electronically signed on 09/11/2021 3:22:41 PM with status of Final
[2021-09-11] MEDS: 0.9 % Sodium Chloride 1,000 ML 75 ML IVCONT (08:25)
--- NOTE | 2021-09-11 10:18 | MHC.CM.PN ---
Patient lives in a house with his and he required no services nor DME [employer]. Home self care is the goal and CM has initiated and will follow for dc planning. Esther addressed verbally with Patient and original to be given to him and a copy placed on the chart. Patient has received Pfizer/CovPublicRelay vax X3 and PCP is Dr Savage.
--- NOTE | 2021-09-11 12:51 | PC.NURSE ---
Pt is A&OX3, NSR/SB on the monitor, denies any pain, lightheadedness, dizziness at this time. Ambulates with steady gait. Pt would like to go home today, states he can do a work up outpatient, MD made aware of patient's request. Fluids disconnected as per Pt request while awaiting discharge. Call suarez within reach. Will continue to monitor.
--- NOTE | 2021-09-11 13:22 | MHC.CM.PN ---
Patient has been medically cleared for dc to home today, self care.
--- NOTE | 2021-09-11 14:33 | PM.DS ---
DS: Providers Provider Date of Service: 09/11/21 Date of admission: 09/10/21 19:04 Primary care physician: Dotty Savage MD Consults: 09/10/21 19:19 Consult to Cardiology Routine Consulting Provider: Steven Byers Reason for consultation: syncope DS: Diagnosis Discharge Diagnosis (1) Syncope: Status: Resolved DS: Summary Hospital Course Hospital Course: Chief Complaint: syncope 71-year-old male with a past medical history of hypertension, hyperlipidemia, history of bradycardia, obesity, HERBERTH on CPAP, osteoarthritis, irritable bowel syndrome, impaired fasting glucose; presented to the hospital today with a chief complaint of syncope.? Patient reported that he was mowing his LAWN, he felt?diaphoretic,lightheaded and followed by a syncopal episode -lasted for few seconds;? landed on the hips; when he woke up he was on the ground; denied any chest pain or palpitations.? Denied any seizure-like activity.? Denied any nausea or vomiting.? Patient denies any neck pain, back pain, hip pain; denies any GI symptoms.? Review of all other systems is negative except mentioned above ER course: Per ER team patient's exam was nonfocal; CT head and CT cervical spine showed no acute findings; EKG showed right bundle-branch block; nonischemic; troponin was negative; admitted to the hospital for further management. hospital course ?71-year-old male with a past medical history of hypertension, hyperlipidemia, history of bradycardia, obesity, HERBERTH on CPAP, osteoarthritis, irritable bowel syndrome, impaired fasting glucose; presented to the hospital today with a chief complaint of syncope. ?syncope: Patient admitted to telemetry unit orthostatic studies were mildly positive EKG showed right bundle-branch block patient troponins were negative cardiac technologist showed no arrhythmia patient treated with IV fluid An echocardiogram was obtained that showed EF 55-60% normal right ventricular systolic function, abnormal diastolic function was noted, EKG showed right bundle-branch block patient had no recurrent symptoms of lightheadedness dizziness chest pain or palpitation therefore being discharged home to have close outpatient follow-up with primary care physician. Fall:? Secondary to syncope.? Patient landed on the hips.? CT head and CT C-spine showed no acute findings, pelvic x-ray showed no acute fractures. Recommend to take Tylenol for pain. history of hypertension / hyperlipidemia:? Recommend to follow low-fat diet and follow blood pressure at home and with PCP. History of HERBERTH: Continue home CPAP Time Spent with Patient Time attestation: Total time spent providing and/or coordinating discharge services: Discharge coordination time: Greater than 30 minutes Quality: Safe Use of Opioids Does Pt have an Active Cancer Diagnosis on the Problem List?: No Quality: Stroke Does the patient have a stroke diagnosis?: No Physical Exam Vital Signs: Vital Signs: Last Vital Signs Temp 98.1 F 09/11/21 12:26 Pulse 55 09/11/21 12:26 Resp 20 09/11/21 12:26 BP 131/65 09/11/21 12:26 Pulse Ox 96 09/11/21 12:26 BMI result Body Mass Index 37.5 Const: Other: General awake alert x3, no acute distress. Neck no JVD. CVS regular rate rhythm, Respiratory lungs clear to auscultation, no respiratory distress, no wheeze, no rhonchi. Gastrointestinal abdomen soft, nontender, bowel sounds audible Extremities no edema. Neuro nonfocal , speech clear. Skin no rash psych appropriate affect DS: Data Data Completed and Pending Labs on day of discharge: Laboratory Results - last 24 hr 09/10/21 09/10/21 09/10/21 17:12 17:12 17:12 WBC 8.3 RBC 4.15 L Hgb 14.3 Hct 42.9 MCV 103.4 H MCH 34.5 H MCHC 33.3 RDW 12.6 Plt Count 179 MPV 10.3 Immature Gran % (Auto) 0.7 H Neut % (Auto) 70.8 Lymph % (Auto) 18.3 L [place] % (Auto) 8.8 Eos % (Auto) 1.0 Baso % (Auto) 0.4 Lymph # (Auto) 1.5 [place] # (Auto) 0.7 Eos # (Auto) 0.1 Baso # (Auto) 0.0 Abs Immat Gran (auto) 0.06 H Absolute Neuts (auto) 5.9 Absolute Nucleated RBC 0.000 Nucleated RBC % (auto) 0.0 PT 12.3 INR 1.1 APTT 31.0 D-Dimer High Sensitivty 786 Sodium 136 Potassium 5.4 H D Chloride 103 Carbon Dioxide 25 Anion Gap 13 BUN 24 H D Creatinine 1.11 Estim Creat Clear Calc 69.5 Estimated GFR > 60 Random Glucose 102 Calcium 9.5 Total Bilirubin 1.2 H AST 39 H D ALT 42 H Alkaline Phosphatase 68 Total Creatine Kinase 615 H Troponin I High Sens Total Protein 7.0 Albumin 4.2 Urine Color Urine Appearance Urine pH Ur Specific [place] Urine Protein Urine Glucose (UA) Urine Ketones Urine Blood Urine Nitrite Ur Leukocyte Esterase COVID-19 ([facility]) COVID-19 Clin Com Influenza Type A ([facility]) Influenza Type B ([facility]) Influenza A & B Note 09/10/21 09/10/21 09/10/21 17:12 21:32 21:32 WBC RBC Hgb Hct MCV MCH MCHC RDW Plt Count MPV Immature Gran % (Auto) Neut % (Auto) Lymph % (Auto) [place] % (Auto) Eos % (Auto) Baso % (Auto) Lymph # (Auto) [place] # (Auto) Eos # (Auto) Baso # (Auto) Abs Immat Gran (auto) Absolute Neuts (auto) Absolute Nucleated RBC Nucleated RBC % (auto) PT INR APTT D-Dimer High Sensitivty Sodium Potassium Chloride Carbon Dioxide Anion Gap BUN Creatinine Estim Creat Clear Calc Estimated GFR Random Glucose Calcium Total Bilirubin AST ALT Alkaline Phosphatase Total Creatine Kinase Troponin I High Sens 7.7 Total Protein Albumin Urine Color Urine Appearance Urine pH Ur Specific [place] Urine Protein Urine Glucose (UA) Urine Ketones Urine Blood Urine Nitrite Ur Leukocyte Esterase COVID-19 ([facility]) Negative COVID-19 Clin Com See Note Influenza Type A ([facility]) Negative Influenza Type B ([facility]) Negative Influenza A & B Note See Note 09/10/21 09/11/21 09/11/21 22:38 04:48 04:48 WBC 6.8 RBC 4.00 L Hgb 13.7 L Hct 41.0 L MCV 102.5 H MCH 34.3 H MCHC 33.4 RDW 12.7 Plt Count 171 MPV 9.9 Immature Gran % (Auto) 0.3 Neut % (Auto) 55.9 Lymph % (Auto) 28.4 [place] % (Auto) 12.1 H Eos % (Auto) 2.9 Baso % (Auto) 0.4 Lymph # (Auto) 1.9 [place] # (Auto) 0.8 Eos # (Auto) 0.2 Baso # (Auto) 0.0 Abs Immat Gran (auto) 0.02 Absolute Neuts (auto) 3.8 Absolute Nucleated RBC 0.000 Nucleated RBC % (auto) 0.0 PT INR APTT D-Dimer High Sensitivty Sodium 139 Potassium 4.6 Chloride 106 Carbon Dioxide 27 Anion Gap 11 L BUN 19 H Creatinine 0.83 Estim Creat Clear Calc 93.0 Estimated GFR > 60 Random Glucose 104 Calcium 9.0 Total Bilirubin AST ALT Alkaline Phosphatase Total Creatine Kinase Troponin I High Sens Total Protein Albumin Urine Color YELLOW Urine Appearance CLEAR Urine pH 5.5 Ur Specific [place] 1.025 Urine Protein NEG Urine Glucose (UA) NEG Urine Ketones 40 Urine Blood NEG Urine Nitrite NEG Ur Leukocyte Esterase NEG COVID-19 ([facility]) COVID-19 Clin Com Influenza Type A ([facility]) Influenza Type B ([facility]) Influenza A & B Note Discharge Plan Discharge Patient Disposition: Home, Self-Care Discharge Diagnosis: syncope Referrals: Dotty Savage MD [Primary Care Provider] - 1 Week Discharge Medications: Continued multivitamin Tablet 1 tab PO DAILY 0RF dicyclomine 20 mg tablet 20 mg PO BID 0RF Discontinued lisinopril 5 mg tablet 5 mg PO DAILY Qty: 30 5RF lisinopril 5 mg tablet 5 mg PO DAILY 0RF doxycycline hyclate 100 mg tablet 100 mg PO DAILY 0RF Discharge Orders: Discharge Order (Routine); Ordered 09/11/21 Ordered By: Yves Olson Diet: advance to usual diet Activity on Discharge: As tolerated Stand Alone Forms: Patient Portal Discharge page Care Plan Goals: syncope likely due to orthostatic hypotension.hold Lisinopril follow blood pressure closely Health Concerns: stay hydrated, follow blood pressure closely Plan of Treatment: outpatient follow-up with primary care physician Assessment: as per discharge summary Discharge Date/Time: 09/11/21 15:46
--- NOTE | 2021-09-11 15:50 | PC.NURSE ---
Patient to be discharged home. Brother here for ride home. pt ambulatory, gait steady
== END 2021-09-11 15:46 | disposition home or self-care (01) ==
LOC: HO.ED 19:24 → HO.EDOVER 23:09
PROVIDERS: Physician Assistant; Admitting Provider Hospitalist; Emergency Provider Internal Medicine; PCP Internal Medicine; Visit Provider Hospitalist
DX: R55 Syncope and collapse (principal); I45.10 Unspecified right bundle-branch block; S00.03XA Contusion of scalp, initial encounter; W18.30XA Fall on same level, unspecified, initial encounter; Y93.H2 Activity, gardening and landscaping; Y92.007 Garden or yard of unspecified non-institutional (private) residence as the place of occurrence of the external cause; Y99.8 Other external cause status; M47.812 Spondylosis without myelopathy or radiculopathy, cervical region; M19.90 Unspecified osteoarthritis, unspecified site; I10 Essential (primary) hypertension; E78.5 Hyperlipidemia, unspecified; R00.1 Bradycardia, unspecified; E66.9 Obesity, unspecified; G47.33 Obstructive sleep apnea (adult) (pediatric); R73.01 Impaired fasting glucose; F10.10 Alcohol abuse, uncomplicated; Z68.37 Body mass index [BMI] 37.0-37.9, adult; Z87.891 Personal history of nicotine dependence; Z20.822 Contact with and (suspected) exposure to COVID-19; Z88.6 Allergy status to analgesic agent; Z99.89 Dependence on other enabling machines and devices; Z79.899 Other long term (current) drug therapy
CPT/HCPCS: 36415; 70450; 72125; 72170; 80048; 80053; 81003; 82550; 84484; 85025; 85379; 85610; 85730; 87502; 87635; 93005; 93306; 96360; 99219; 99285; Q9957

== ENCOUNTER → 2021-12-18 13:17 | Outpatient (BNVA) | payer MEDICARE, SELFPAY | PROVIDERS: PCP Internal Medicine; Referring Provider Internal Medicine; Visit Provider Internal Medicine | DX: Z45.018 Encounter for adjustment and management of other part of cardiac pacemaker (principal); I44.2 Atrioventricular block, complete; I10 Essential (primary) hypertension; G47.33 Obstructive sleep apnea (adult) (pediatric); E66.01 Morbid (severe) obesity due to excess calories; Z68.35 Body mass index [BMI] 35.0-35.9, adult | CPT/HCPCS: 93005; 93280; 99202 ==

== ENCOUNTER 2021-12-21 07:41 | Outpatient (REF) | payer MEDICARE, SELFPAY ==
[2021-12-21 11:26] LABS: MANUAL DIFF FLAG NO
[2021-12-21 11:29] LABS: Basophils Percent Auto 0.6 % (0-2); Eosinophils Absolute Auto 0.3 X10*3/uL (0.0-0.4); Eosinophils Percent Auto 5.8 % (0-4); Imm Gran Abs Auto 0.01 X10*3/uL (0.00-0.03); Imm Gran Pct Auto 0.2 % (0.0-0.4); Lymphocytes Absolute Auto 1.7 X10*3/uL (1.2-4.9); Lymphocytes Percent Auto 34.6 % (20-40); Mean Corpuscular HGB Conc 33.3 g/dl (31.0-36.0); Mean Corpuscular Hemoglobin 33.9 pg (27.0-33.0); Mean Corpuscular Volume 101.7 fL (80.0-98.0); Mean Platelet Volume 10.4 fL (9.4-12.4); Monocytes Absolute Auto 0.4 X10*3/uL (0.1-1.2); Monocytes Percent Auto 7.4 % (2-11); Neutrophils Absolute Auto 2.6 x10*3/uL (2.0-8.3); Neutrophils Percent Auto 51.4 % (45-73); Platelet Count 184 X10*3/uL (160-400); Red Blood Count 4.13 X10*6/uL (4.60-5.80); Red Cell Distribution Width 13.2 % (11.0-16.0)
[2021-12-21 11:44] LABS: Estimated Average Glucose 111 mg/dL; Hemoglobin A1c % 5.5 %
[2021-12-21 12:01] LABS: Alanine Aminotransferase 27 U/L (0-40); Albumin Level 4.2 g/dL (3.5-5.0); Alkaline Phosphatase 76 U/L (39-117); Anion Gap 15 (12-20); Aspartate Amino Transferase 24 U/L (5-37); Bilirubin Total 0.8 mg/dL (0.0-1.0); Blood Urea Nitrogen 17 mg/dL (9-16); Calcium 8.9 mg/dL (8.4-10.2); Carbon Dioxide 24 mmol/L (22-29); Chloride 108 mmol/L (96-108); Cholesterol 201 mg/dL; Estimated Glomerular Filt Rate > 60; Glucose Fasting 113 mg/dL (60-99); HDL Cholesterol 81 mg/dL; LDL Cholesterol Calculated 105 mg/dl; Potassium 4.1 mmol/L (3.3-5.1); Sodium 143 mmol/L (135-145); Total Protein 6.8 g/dL (6.5-8.0); Triglycerides 78 mg/dL
== END 2021-12-21 07:42 | disposition home or self-care (01) ==
LOC: HO.HMGCLDS 07:41
PROVIDERS: PCP Internal Medicine; Visit Provider Internal Medicine
DX: E66.01 Morbid (severe) obesity due to excess calories (principal); E78.5 Hyperlipidemia, unspecified; I10 Essential (primary) hypertension; R73.01 Impaired fasting glucose; Z86.2 Personal history of diseases of the blood and blood-forming organs and certain disorders involving the immune mechanism
CPT/HCPCS: 36415; 80053; 80061; 83036; 85025

== ENCOUNTER → 2022-01-02 08:23 | Outpatient (REF) | payer MEDICARE, SELFPAY ==
--- NOTE | ~2022-01-02 | NM_ITS ---
Lexiscan Myocardial perfusion study Indication: Recent heart block, pacemaker placement, assess for coronary disease and ischemia Technique: The patient was brought in for a Lexiscan perfusion study on 01/02/2022 and was injected 0.4 mg of Lexiscan intravenously. Within a minute of this injection 30 mCi of sestamibi was given intravenously. Images were obtained using the SPECT gamma camera interlaced with the gating device. Images were obtained in supine position. Resting perfusion study was performed on 01/03/2022. Patient was administered 30 mCi of sestamibi intravenously at rest. Images were then obtained in supine position. Total DLP 98mGy-cm. Images were processed with the software and compared side to side in short axis, horizontal long axis and vertical long axis views. Findings: Raw acquisition reviewed. The stress perfusion study showed diminished tracer uptake along the inferior wall. There is improvement with CT attenuation correction suggestive of diaphragmatic attenuation artifact. The gated study shows normal LV systolic function with calculated LVEF of 64%. LV cavity is normal in size. The gated study shows normal wall thickening and contraction of segments. Resting study shows diminished tracer uptake along the inferior wall more towards the distal portion. There is improvement with CT attenuation correction. Gating at rest reveals normal wall motion with ejection fraction at 60%. The findings are consistent with fixed inferior defect, suspected to be from diaphragmatic attenuation artifact. No clear reversible defects. IL/IL cardiolite stress test Impression: 1. Myocardial perfusion imaging study shows no clear evidence of any ischemia or infarction. Likely normal myocardial perfusion. 2. Gated LVEF is 64% during stress and 60% during rest. 3. Transient ischemic dilatation not present. EKG component of the test reported separately.
--- NOTE | 2022-01-02 08:26 | CA_ITS ---
Acquisition Time: 2022-01-02 08:44:46 Total Exercise Time: 00:02:00 Test Indications: Syncope Medications: LISINOPRIL Protocol: LEXISCAN Max HR: 107 BPM 71% of Pred: 149 BPM Max BP: 146/078 mmHG Max Work Load: 1.0 METS Pharmacological stress test with Lexiscan injection, while sitting and kicking his legs, without anginal symptoms, with isolated PACs, and asymptomatic 11 beat tachycardic run in recovery ( appreas to be atrial tach), with normotensive response to injection, with nondiagnostic EKG for ischemia. Nuclear images pending. Test reviewed with Dr Abreu. Referred By: Brendan Santiago Overread By: TANIA RESENDEZ
== END ==
LOC: HO.CARD 08:23
PROVIDERS: PCP Internal Medicine; Visit Provider Internal Medicine
DX: I44.2 Atrioventricular block, complete (principal)
CPT/HCPCS: 78452; 93017; A9500; J0280; J2785

== ENCOUNTER → 2022-06-03 13:23 | Outpatient (BNVA) | payer MEDICARE, SELFPAY | PROVIDERS: PCP Internal Medicine; Referring Provider Internal Medicine; Visit Provider Internal Medicine | DX: I44.2 Atrioventricular block, complete (principal); I10 Essential (primary) hypertension; I45.10 Unspecified right bundle-branch block; G47.33 Obstructive sleep apnea (adult) (pediatric); E66.01 Morbid (severe) obesity due to excess calories; Z68.32 Body mass index [BMI] 32.0-32.9, adult; Z95.0 Presence of cardiac pacemaker | CPT/HCPCS: 93280; 99212 ==

== ENCOUNTER 2022-06-25 07:33 | Outpatient (REF) | payer MEDICARE, SELFPAY ==
[2022-06-25 12:05] LABS: Alanine Aminotransferase 29 U/L (0-40); Anion Gap 13 (12-20); Aspartate Amino Transferase 26 U/L (5-37); Blood Urea Nitrogen 22 mg/dL (9-16); Calcium 9.1 mg/dL (8.4-10.2); Carbon Dioxide 26 mmol/L (22-29); Chloride 106 mmol/L (96-108); Cholesterol 206 mg/dL; Estimated Glomerular Filt Rate > 60; Glucose Fasting 103 mg/dL (60-99); HDL Cholesterol 78 mg/dL; LDL Cholesterol Calculated 112 mg/dl; Potassium 3.9 mmol/L (3.3-5.1); Sodium 141 mmol/L (135-145); Triglycerides 84 mg/dL
[2022-06-25 12:14] LABS: PSA,Total (Free>4and<10) 1.04 ng/mL (0.00-4.00); Vitamin D 25-OH Total 35.3 ng/mL (>30)
== END 2022-06-25 07:34 | disposition home or self-care (01) ==
LOC: HO.HMGCLDS 07:33
PROVIDERS: PCP Internal Medicine; Visit Provider Internal Medicine
DX: E66.01 Morbid (severe) obesity due to excess calories (principal); I45.10 Unspecified right bundle-branch block; E78.5 Hyperlipidemia, unspecified; I10 Essential (primary) hypertension; R73.01 Impaired fasting glucose; Z12.5 Encounter for screening for malignant neoplasm of prostate
CPT/HCPCS: 36415; 80048; 80061; 82306; 84153; 84450; 84460

== ENCOUNTER 2022-06-27 10:58 | Outpatient (AMB) | payer MEDICARE, SELFPAY ==
--- NOTE | 2022-06-27 11:00 | A.OFFPC_ITS ---
Vital Signs 06/27/22 11:17 Height 5 ft 6 in Weight 205 lb BMI 33.0 BP 104/68 Blood Pressure Location Lt brachial Position Sitting Pulse 61 Pulse Source Pulse Oximeter Pulse Oximetry (%) 97 Oxygen Delivery Method Room Air Intake Visit Reasons: PE,HTN, IFG Intake Note: Pt is here today for his PE Allergies hydrocodone [From Vicodin] Adverse Reaction (Unknown, Verified 12/27/22 09:57) agitation Medication List - Last Reconciled 06/27/22 by Dotty Savage MD dicyclomine 20 mg PO TID doxycycline hyclate 20 mg PO BID lisinopril 5 mg PO DAILY multivitamin 1 tab PO DAILY Tobacco use date assessed: 06/27/22 Fall risk assessment: 1 Fall in past year Last assessed Fall Risk: 06/27/22 HPI PE,HTN, IFG HPI Details 72-year-old male with impaired fasting g lucose, hypertension dyslipidemia, currently on lisinopril 5 mg daily and multivitamins, here today for his physical exam. He has been feeling well, compliant with taking his medication, walks regularly for exercise, has been following a low-salt low carb diet. Recent fasting labs showed electrolytes are within normal limits, with fasting glucose at 103 mg/dL with an A1c at 5.6, liver enzymes and lipid levels, PSA and vitamin-D are all within normal limits. Laboratory Tests 06/25/22 06/27/22 07:37 11:16 Sodium 141 Potassium 3.9 Chloride 106 Carbon Dioxide 26 Anion Gap 13 BUN 22 H Creatinine 0.81 Estimated GFR > 60 Fasting Glucose 103 H Hgb A1c (Clinic) 5.6 Calcium 9.1 AST 26 ALT 29 Triglycerides 84 Cholesterol 206 LDL Cholesterol, C alc 112 HDL Cholesterol 78 Total PSA 1.04 25-OH Vitamin D To marisela 35.3 [facility] Medical History (Updated 12/27/22 @ 10:28 by Dotty Savage MD) Obesity (BMI 30.0-34.9) History of complete heart block Obstructive sleep apnea Complete heart block Hx of syncope Right bundle branch block (RBBB) Essential hypertension Tubular adenoma of colon Bradycardia Increased BMI Strain of right knee Intolerance to BiPAP/CPAP Essential hypertension Impaired fasting glucose Dyslipidemia Surgical History History of permanent cardiac pacemaker placement S/P placement of cardiac pacemaker H/O colonoscopy History of excision of pilonidal cyst Family History Father HTN (hypertension) Borderline diabetes mellitus Function kidney decreased Mother HTN (hypertension) Breast cancer Brother No problems noted. Brother No problems noted. Social History Housing: House Are you a primary lawn care professional to a significant other at home: No Do you presently have visiting nurse or other home services: No Alcohol intake: current Alcohol intake frequency: a few times a month Alcohol type: wine Patient Tobacco Use Status: Former Tobacco user Years Smoked: 40 yrs e-Cigarette/Vaping Use: Never Used Second Hand Smoke Exposure: No service: No Current occupational status: retired Cognitive needs: No Hearing needs: No Vision needs: Yes Questionnaire PHQ-9 Over the last 2 weeks, how often have you been bothered by any of the following problems? 1. Little interest or pleasure in doing things: several days 2. Feeling down, depressed, or hopeless: not at all 3. Trouble falling or staying asleep, or sleeping too much: several days 4. Feeling tired or having little energy: not at all 5. Poor appetite or overeating: not at all 6. Feeling bad about yourself - or that you are a failure or have let yourself or your family down: not at all 7. Trouble concentrating on things, such as reading the newspaper or watching television: not at all 8. Moving or speaking so slowly that other people could have noticed. Or the opposite - being so fidgety or restless that you have been moving around a lot more than usual: not at all 9. Thoughts that you would be better off or of hurting yourself in some way: not at all Total score: 2 Depression Screening Interpretation: Negative 95146 - PHQ-9 Billing: Yes Source: Developed by Drs. Nathen Sheffield, Rebecca Brown, Linwood Raphael and colleagues, with an educational luis antonio from [employer]. Thrive Questionnaire Declines Thrive assessment: No Date Thrive assessed: 06/27/22 I am a: Patient What is your living situation today?: I have a steady place to live Within the past 12 months, did the food you bought not last and you didn't have the money to get more?: Never true Within the past 12 months, did you worry whether your food would run out before you got money to buy more?: Never true Do you have trouble paying for medicines?: No Do you have trouble getting transportation to medical appointments?: No Do you have trouble paying your heating and electricity bill?: No Do you have trouble taking care of your child, family member or friend?: No Do you have trouble with day-to-day activities such as bathing, preparing meals, shopping, managing finances, etc.?: No Are you currently unemployed and looking for a job?: No Are you interested in more education?: No AUDIT C Alcohol Use Questionnaire (AUDIT-C) 1. How often do you have a drink containing alcohol?: 2-4 times a month 2. How many drinks containing alcohol do you have on a typical day when you are drinking?: 1 or 2 3. How often do you have six or more drinks on one occasion?: Never Total Score: 2 DAYRON-7 AMB Questionnaire DAYRON-7 Date DAYRON - 7 assessed: 06/27/22 Feeling nervous, anxious, or on edge: 1 = Several days Not being able to stop or control worryin = Not at all Worrying too much about different things: 1 = Several days Trouble relaxin = Several days Being so restless that it is hard to sit still: 0 = Not at all Becoming easily annoyed or irritable: 1 = Several days Feeling afraid as if something awful might happen: 0 = Not at all Total DAYRON-7 score (0-4 normal; 5-9 mild; 10-14 moderate; 15-21 severe): 4 Source: Developed by Drs. Nathen Sheffield, Rebecca Brown, Linwood Raphael and colleagues, with an educational luis antonio from [employer]. DAYRON-7 Assessment Billing DAYRON-7 Assessment Tool: DAYRON-7 Assessment 30226 Review of Systems Const Denies daytime sleepiness, Denies fatigue, Denies fever(s), Denies frequent falls, Denies poor appetite, Denies snoring, Denies stops breathing during sleep, Denies weakness and Denies weight loss Eyes Denies change in vision ENT Denies dizziness and Denies hearing loss Card Denies chest pain, Denies claudication, Denies leg edema, Denies lightheadedness, Denies palpitations, Denies dyspnea, Denies dyspnea on exertion and Denies orthopnea Resp Denies cough, Denies dyspnea, Denies dyspnea on exertion, Denies snoring and Denies wheezing GI Denies abdominal pain, Denies change in bowel habits, Denies nausea and Denies vomiting Denies dysuria and Denies urinary frequency Musc Denies arthralgias, Denies muscle weakness and Denies numbness Skin/Breast Denies rash Neuro Denies Abnormal speech present, Denies dizziness, Denies frequent falls, Denies memory loss, Denies numbness and Denies weakness Psych Denies depression and Denies memory loss Endo Denies fatigue and Denies palpitations Romeo/Lymph Denies easy bruising Aller/Immun Denies wheezing Physical exam (Primary Care) Vital Signs: Last Vital Signs Pulse 61 06/27/22 11:17 BP 104/68 06/27/22 11:17 Pulse Ox 97 06/27/22 11:17 Oxygen Delivery Method Room Air 06/27/22 11:17 BMI result Body Mass Index 33.0 Tobacco/Smoking Status: Tobacco use Status Tobacco use date assessed 06/27/22 06/27/22 11:03 Patient Tobacco Use Status Former Tobacco user 06/27/22 11:01 e-Cigarette/Vaping Use Never Used 06/27/22 11:01 PHQ-9: PHQ-9 Score PHQ-9: Total score 4 06/27/22 12:02 Depression Screening Interpretation: Negative Thrive Assessment: Date of Thrive Assessment Date Thrive assessed 06/27/22 06/27/22 11:16 Const General: comfortable, no acute distress and alert Orientation/consciousness: patient oriented x3 Limitations: no limitations HENMT Ears: external ears normal General nose exam: Normal external nose present and No nasal discharge present Mouth: Normal oral and palatal mucosa present and moist mucous membranes Eyes General: appearance normal, both eyes and all related structures Conjunctivae: conjunctivae normal Sclerae: sclerae normal Pupils: Equal, round and reactive pupils present EOM: EOMs intact bilaterally Neck Neck: Yes full ROM, Yes no lymphadenopathy and Yes supple Chest Chest palpation & inspection: normal inspection of the chest and normal palpation of entire chest wall Resp Effort & Inspection: normal respiratory effort and able to speak in complete sentences Auscultation: clear to auscultation bilaterally Cardio Rate: regular rate Rhythm: regular rhythm Heart sounds: S1 normal heart sound present and S2 normal heart sound present GI Palpation (GI): Soft to palpation, nontender and no masses Auscultation: normal bowel sounds General: Yes no CVA tenderness Male General Exam: Yes normal external exam Back/Spine/Pelvis Back: no CVA tenderness and No back tenderness Skin General skin exam: no rashes or lesions noted Neuro General: patient oriented x3, gait normal, tone normal, moves all extremities, Normal light touch and pain sensation and no focal motor deficits Cranial nerves: Yes CN's II-XII intact bilaterally and Yes Equal, round and reactive pupils present Cognition (Neuro): normal cognition Speech: No Abnormal speech present Extrem General: Yes full ROM, Yes no joint enlargement, Yes no clubbing, cyanosis or edema and Yes no calf tenderness Psych Appearance: grossly normal and well kempt Mental Status: mental status grossly normal Speech and movement: Normal speech and movement present Affect: normal affect Attitude: cooperative Thought process: Normal thought process present Results AMB Hemoglobin A1c AMB Hemoglobin A1c 5.6 % Last Edit by Jesenia Mercado CMA on 06/27/22 11:20 Immunizations pneumoc 20-nely conj-dip cr(PF) 0.5 mL IM syringe Performing Provider: Dotty Savage MD Performing Location: [facility] [place] [facility] Administered by: LONNIE Mcgill on 06/27/22 12:03 Dose Route Admin Location Dispensed Lot Number Expiration Date NDC Key Cutter 0.5 mL IM Left Deltoid 0.5 mL [id number] 11/19/23 [id number] [employer] VIS Given Date VIS Provided VIS Publication Date 06/27/22 Single Vaccine 21 Eligibility Eligibility Date Funding Source Not VFC Eligible 06/27/22 Private Results Reviewed Results Reviewed: Laboratory Last Values Hgb A1c (Clinic) 5.6 % (4.0-6.0) 06/27/22 11:16 Assessment and Plan Assessment & Plan (1) History of complete heart block: Code(s): Z86.79 - Personal history of other diseases of the circulatory system Plan: Currently as pacemaker in place the, asymptomatic followed by cardiology (2) Tubular adenoma of colon: Code(s): D12.6 - Benign neoplasm of colon, unspecified Plan: Removed on last colonoscopy [place] [address] Doe, repeat colonoscopy due in 2025 (3) Intolerance to BiPAP/CPAP: Plan: Continue with weight loss, sleep on the side (4) Essential hypertension: Code(s): I10 - Essential (primary) hypertension Plan: Blood pressure at goal of less than 130/80. Continue with lisinopril 5 mg daily. Reinforced importance of following a low sodium diet, getting regular exercise, and lowering stress levels. (5) Impaired fasting glucose: Code(s): R73.01 - Impaired fasting glucose Plan: Previous fasting blood sugars was elevated above 100 mg/dL. Currently fasting glucose is within normal limits with a normal hemoglobin A1c. Impaired glucose metabolism O2 at risk for developing diabetes mellitus type 2, as well as heart attack and stroke later on. Lifestyle changes at just weight loss, healthy eating habits, and regular exercise are important, and can prevent the progression to diabetes (6) Dyslipidemia: Code(s): E78.5 - Hyperlipidemia, unspecified Plan: Reviewed recent fasting lipid profile with patient with levels within normal limits . Continue with adherence to low-cholesterol diet and regular exercise, at least 30 minutes 3 to 4 times a week. Advised patient to make healthy food choices, eat more fruits, vegetables, whole grains, wild caught fish and low-fat dairy. Limit amount of meat and fried or fatty food products, as well as processed foods and fast foods. Follow-up scheduled with repeat fasting lipid panel in 6 months. (7) Annual visit for general adult medical examination with abnormal findings: Code(s): Z00.01 - Encounter for general adult medical examination with abnormal findings Plan: Recent fasting labs results reviewed with patient. Continue regular dental visit every 6 months and regular eye exams, at least every 2 years. Take adequate calcium in diet and vitamin-D 3 at 2000 IU per cap once a day, in addition to weight-bearing exercises to help maintain good muscle tone and weight control. Instructed to do self-testicular exam check for any mass. Up-to-date with his screening colonoscopy due again in [address] Doe. Prevnar 20 given today, reminded to get his COVID booster when out next, and get yearly flu shot, up-to-date with his Shingrix vaccination and Tdap Orders: Orders AMB Hemoglobin A1c 06/27/22 R73.01 - Impaired fasting glucose Basic Metabolic Panel Fasting 6 Months Z86.79 - Personal history of other diseases of the circulatory system, D12.6 - Benign neoplasm of colon, unspecified, I10 - Essential (primary) hypertension, R73.01 - Impaired fasting glucose, E78.5 - Hyperlipidemia, unspecified Lipid Panel 6 Months Z86.79 - Personal history of other diseases of the circulatory system, D12.6 - Benign neoplasm of colon, unspecified, I10 - Essential (primary) hypertension, R73.01 - Impaired fasting glucose, E78.5 - Hyperlipidemia, unspecified Hemoglobin A1c 6 Months Z86.79 - Personal history of other diseases of the circulatory system, D12.6 - Benign neoplasm of colon, unspecified, I10 - Essential (primary) hypertension, R73.01 - Impaired fasting glucose, E78.5 - Hyperlipidemia, unspecified Pneumococcal 20 Immunization 06/27/22 Z23 - Encounter for immunization Vitamin D 25-OH Total 6 Months Z86.79 - Personal history of other diseases of the circulatory system, D12.6 - Benign neoplasm of colon, unspecified, I10 - Essential (primary) hypertension, R73.01 - Impaired fasting glucose, E78.5 - Hyperlipidemia, unspecified Medications: Refilled lisinopril 5 mg PO DAILY 90 tabs 2RF Coding Level of Care Code Est Pt Prev Care >65y(96310) Diagnoses History of complete heart block Z86. Tubular adenoma of colon D12.6 Intolerance to BiPAP/CPAP Essential hypertension I10 Impaired fasting glucose R73.01 Dyslipidemia E78.5 Annual visit for general adult medical examination with abnormal findings Z00.01 Additional Codes DAYRON-7 Assessment Billing - DAYRON-7 Assessment Tool: DAYRON-7 Assessment [id number] ([id number])
[2022-06-27 11:17] VITALS: BP 104/68; PULSE 61; O2SAT 97; BMI 33.0
== END 2022-06-27 12:00 | disposition home or self-care (01) ==
LOC: HO.HMGC 10:58
PROVIDERS: PCP Internal Medicine; Visit Provider Internal Medicine
DX: Z86.79 Personal history of other diseases of the circulatory system (principal); D12.6 Benign neoplasm of colon, unspecified; I10 Essential (primary) hypertension; R73.01 Impaired fasting glucose; E78.5 Hyperlipidemia, unspecified; Z00.01 Encounter for general adult medical examination with abnormal findings
CPT/HCPCS: 83036; 90471; 90677; 99397

== ENCOUNTER 2022-12-25 06:51 | Outpatient (REF) | payer MEDICARE, SELFPAY ==
[2022-12-25 12:11] LABS: Estimated Average Glucose 105 mg/dL; Hemoglobin A1c % 5.3 % (<6.0)
[2022-12-25 12:49] LABS: Anion Gap 14 (12-20); Blood Urea Nitrogen 18 mg/dL (9-16); Calcium 9.5 mg/dL (8.4-10.2); Carbon Dioxide 26 mmol/L (22-29); Chloride 105 mmol/L (96-108); Cholesterol 174 mg/dL (<200); Estimated Glomerular Filt Rate > 60; Glucose Fasting 99 mg/dL (60-99); HDL Cholesterol 73 mg/dL (>40); LDL Cholesterol Calculated 85 mg/dL (<100); Potassium 4.4 mmol/L (3.3-5.1); Sodium 141 mmol/L (135-145); Triglycerides 83 mg/dL (<150); Vitamin D 25-OH Total 78.7 ng/mL (>30)
== END 2022-12-25 06:52 | disposition home or self-care (01) ==
LOC: HO.HMGCLDS 06:51
PROVIDERS: PCP Internal Medicine; Visit Provider Internal Medicine
DX: D12.6 Benign neoplasm of colon, unspecified (principal); I10 Essential (primary) hypertension; R73.01 Impaired fasting glucose; E78.5 Hyperlipidemia, unspecified; Z86.79 Personal history of other diseases of the circulatory system
CPT/HCPCS: 36415; 80048; 80061; 82306; 83036

== ENCOUNTER 2022-12-27 09:30 | Outpatient (AMB) | payer MEDICARE, SELFPAY ==
--- NOTE | 2022-12-27 09:32 | A.OFFPC_ITS ---
Vital Signs 12/27/22 09:41 Height 5 ft 6 in Weight 210 lb BMI 33.9 BP 100/72 Blood Pressure Location Rt brachial Position Sitting Pulse 65 Pulse Source Pulse Oximeter Pulse Oximetry (%) 98 Oxygen Delivery Method Room Air Intake Visit Reasons: 6 Mo ffuphtn , ifg after labs done req morning Intake Note: patient is here today for 6 month f/u Allergies hydrocodone [From Vicodin] Adverse Reaction (Unknown, Verified 12/27/22 09:57) agitation Medication List - Last Reconciled 12/27/22 by Dotty Savage MD dicyclomine 20 mg PO TID doxycycline hyclate 20 mg PO BID lisinopril 5 mg PO DAILY multivitamin 1 tab PO DAILY Tobacco use date assessed: 12/27/22 Fall risk assessment: No Falls in past year Last assessed Fall Risk: 12/27/22 Dental Screening Dental Screen Date: 12/27/22 Did you have a dental visit in the last 12 months?: Yes Did you have a dental problem in the last 6 months where you did not have access to dental care?: Yes Was dental information given to patient?: Patient has dentist HPI 6 Mo ffuphtn , ifg after labs done req morning HPI Details 72-year-old male with impaired fasting g lucose, hypertension, with history of complete heart block s/p pacemaker placement, and dyslipidemia, here today for follow-up. He has been very strict with his diet, eats a lot of vegetables, counts calories, weighs his food, walks at least 2 miles a day for exercise, and has been eating a keto bread and avoiding pastries and junk food. His recent labs shows normal lipids, fasting glucose, and blood pressure has been well controlled on lisinopril 5 mg daily. [facility] Medical History (Updated 12/27/22 @ 10:28 by Dotty Savage MD) Obesity (BMI 30.0-34.9) History of complete heart block Obstructive sleep apnea Complete heart block Hx of syncope Right bundle branch block (RBBB) Essential hypertension Tubular adenoma of colon Bradycardia Increased BMI Strain of right knee Intolerance to BiPAP/CPAP Essential hypertension Impaired fasting glucose Dyslipidemia Surgical History History of permanent cardiac pacemaker placement S/P placement of cardiac pacemaker H/O colonoscopy History of excision of pilonidal cyst Family History Father HTN (hypertension) Borderline diabetes mellitus Function kidney decreased Mother HTN (hypertension) Breast cancer Brother No problems noted. Brother No problems noted. Social History Housing: House Are you a primary residential caregiver to a significant other at home: No Do you presently have visiting nurse or other home services: No Alcohol intake: current Alcohol intake frequency: a few times a month Alcohol type: wine Patient Tobacco Use Status: Former Tobacco user Years Smoked: 40 yrs e-Cigarette/Vaping Use: Never Used Second Hand Smoke Exposure: No service: No Current occupational status: retired Cognitive needs: No Hearing needs: No Vision needs: Yes Questionnaire Thrive Questionnaire Date Thrive assessed: 06/27/22 AUDIT C Alcohol Use Questionnaire (AUDIT-C) 1. How often do you have a drink containing alcohol?: 2-4 times a month 2. How many drinks containing alcohol do you have on a typical day when you are drinking?: 1 or 2 3. How often do you have six or more drinks on one occasion?: Never Total Score: 2 DAYRON-7 AMB Questionnaire DAYRON-7 Date DAYRON - 7 assessed: 06/27/22 Feeling nervous, anxious, or on edge: 1 = Several days Not being able to stop or control worryin = Several days Worrying too much about different things: 1 = Several days Trouble relaxin = Not at all Being so restless that it is hard to sit still: 0 = Not at all Becoming easily annoyed or irritable: 0 = Not at all Feeling afraid as if something awful might happen: 0 = Not at all Total DAYRON-7 score (0-4 normal; 5-9 mild; 10-14 moderate; 15-21 severe): 3 Source: Developed by Drs. Nathen Sheffield, Rebecca Brown, Linwood Raphael and colleagues, with an educational luis antonio from [email or web address]. Review of Systems Const Denies daytime sleepiness, Denies fatigue, Denies fever(s), Denies frequent fal ls, Denies poor appetite, Denies snoring, Denies stops breathing during sleep, Denies weakness and Denies weight loss Eyes Denies change in vision ENT Denies dizziness and Denies hearing loss Card Denies chest pain, Denies claudication, Denies leg edema, Denies lightheadedness, Denies palpitations, Denies dyspnea, Denies dyspnea on exertion and Denies orthopnea Resp Denies cough, Denies dyspnea, Denies dyspnea on exertion, Denies snoring and Denies wheezing GI Denies abdominal pain, Denies change in bowel habits, Denies nausea and Denies vomiting Denies dysuria and Denies urinary frequency Musc Denies arthralgias, Denies muscle weakness and Denies numbness Skin/Breast Denies rash Neuro Denies Abnormal speech present, Denies dizziness, Denies frequent falls, Denies memory loss, Denies numbness and Denies weakness Psych Denies depression and Denies memory loss Endo Denies fatigue and Denies palpitations Romeo/Lymph Denies easy bruising Aller/Immun Denies wheezing Physical exam (Primary Care) Vital Signs: Last Vital Signs Pulse 65 12/27/22 09:41 BP 100/72 12/27/22 09:41 Pulse Ox 98 12/27/22 09:41 Oxygen Delivery Method Room Air 12/27/22 09:41 BMI result Body Mass Index 33.9 Tobacco/Smoking Status: Tobacco use Status Tobacco use date assessed 12/27/22 12/27/22 09:40 Patient Tobacco Use Status Former Tobacco user 12/27/22 09:33 e-Cigarette/Vaping Use Never Used 12/27/22 09:33 Thrive Assessment: Date of Thrive Assessment Date Thrive assessed 06/27/22 12/27/22 09:33 Const General: comfortable, no acute distress and alert Orientation/consciousness: patient oriented x3 Limitations: no limitations HENMT Ears: external ears normal General nose exam: Normal external nose present and No nasal discharge present Mouth: Normal oral and palatal mucosa present and moist mucous membranes Eyes General: appearance normal, both eyes and all related structures Conjunctivae: conjunctivae normal Sclerae: sclerae normal Pupils: Equal, round and reactive pupils present EOM: EOMs intact bilaterally Neck Neck: Yes full ROM, Yes no lymphadenopathy and Yes supple Resp Effort & Inspection: normal respiratory effort and able to speak in complete se ntences Auscultation: clear to auscultation bilaterally Cardio Rate: regular rate Rhythm: regular rhythm Heart sounds: S1 normal heart sound present and S2 normal heart sound present GI Palpation (GI): Soft to palpation, nontender and no masses Auscultation: normal bowel sounds Back/Spine/Pelvis Back: No back tenderness Neuro General: patient oriented x3, gait normal, tone normal, moves all extremities, Normal light touch and pain sensation and no focal motor deficits Cranial nerves: Yes CN's II-XII intact bilaterally and Yes Equal, round and reactive pupils present Cognition (Neuro): normal cognition Speech: No Abnormal speech present Extrem General: Yes full ROM, Yes no joint enlargement, Yes no clubbing, cyanosis or edema and Yes no calf tenderness Psych Appearance: grossly normal and well kempt Mental Status: mental status grossly normal Speech and movement: Normal speech and movement present Affect: normal affect Attitude: cooperative Thought process: Normal thought process present Results Reviewed Results Reviewed: ENTERED: 12/25/22 JEM MAHER: ORDERED: Met Prof Fast, Lipid Panel, Vitamin D 25-OH Test Result Flag Reference Site Sodium 141 135-145 mmol/L Potassium 4.4 3.3-5.1 mmol/L CL 105 96-108 mmol/L CO2 26 22-29 mmol/L Gap 14 12-20 BUN 18 H 9-16 mg/dL Creat 0.85 0.5-1.4 mg/dL EGFR > 60 NOTE: For -Yemeni individuals, multiply the result by 1.210. Chronic Kidney Disease: Estimated GFR < 60 mL/min/1.73m2 Severe Kidney Disease: Estimated GFR < 15 mL/min/1.73m2 FBS 99 60-99 mg/dL CA 9.5 8.4-10.2 mg/dL Triglyceride 83 <150 mg/dL Desirable Triglyceride: less than 150 mg/dL Borderline High Triglyceride 150-199 mg/dL High Triglyceride: 200-499 mg/dL Very High Triglyceride: greater than or equal to 5OO mg/dL Cholesterol 174 <200 mg/dL Desirable Cholesterol: less than 200 mg/dL Borderline High Cholesterol: 200-239 mg/dL High Cholesterol: greater than 239 mg/dL LDL Calculated 85 <100 mg/dL Desirable LDL: less than 100 mg/dL Near Optimal/Above Optimal LDL: 110-129 mg/dL Borderline High LDL: 130-159 mg/dL High LDL: 160-189 mg/dL Very High LDL: greater than or equal to 190 mg/dL HDL 73 >40 mg/dL Desirable HDL: greater than 40 mg/dL Note: This HDL assay may give artificially low results in patients with liver disease. Vit D 25-OH Tot 78.7 >30 ng/mL Health Based Reference Values* < 20 ng/mL Deficient 20-30 ng/mL Insufficient > 30 ng/mL Sufficient RUN: 12/27/22 1022 PAGE 1 [facility] [address] [place] [id number] Labor Supervisor: Teddy Hoff M.D. Specimen Inquiry Name: Mert Gonzalez Age/Sex: 72/M : 1950 Unit#: [id number] Attend Dr: Dotty Savage MD Re12/25/22 Status: DEP [facility] Disch: SPEC : [id number] SAMMIE: 12/25/22 STATUS: COMP REQ : [id number] RECD: 12/25/[address] [facility] [address]: Dotty Savage MD COMP: 12/25/22 ENTERED: 12/25/22 [facility] DR: ORDERED: Hgb A1c Test Result Flag Reference Site A1c % 5.3 <6.0 % Hemoglobin A1C Reference Range Adults: 4.8 - 6.0 % Non diabetic: < 6.0 % Goal: < 7.0 % Additional Action Suggested: > 8.0 % Note: Hemoglobin A1c results are invalid for patients with abnormal amounts of HbF. Blood transfusions may impact the HbA1c concentration in the patient sample. Est. Avg. Gluc 105 mg/dL eAG = Estimated average glucose which is %A1C expressed as average glucose, using the formula of the X2E-Fwzifde Average Glucose study (ADAG), Diabetes Care, Vol.31,#8, 2007 Assessment and Plan Assessment & Plan (1) Essential hypertension: Code(s): I10 - Essential (primary) hypertension Plan: Blood pressure stable controlled on lisinopril 5 mg once a day, has been compliant with low-salt diet, and exercises regularly (2) Impaired fasting glucose: Code(s): R73.01 - Impaired fasting glucose Plan: Fasting blood sugar now within normal limits, improved with diet and exercise. (3) Dyslipidemia: Code(s): E78.5 - Hyperlipidemia, unspecified Plan: Fasting lipid panel are within normal limits, continue with adhering to healthy eating habits, and regular exercise. (4) Obesity (BMI 30.0-34.9): Code(s): E66.9 - Obesity, unspecified Plan: Continue healthy eating habits and getting regular exercise. (5) History of complete heart block: Code(s): Z86.79 - Personal history of other diseases of the circulatory system Plan: Has pacemaker in place, currently asymptomatic. Followed by cardiology Orders: Orders Basic Metabolic Panel Fasting 06/20/23 E66.9 - Obesity, unspecified, E78.5 - Hyperlipidemia, unspecified, I10 - Essential (primary) hypertension, R73.01 - Impaired fasting glucose, Z86.79 - Personal history of other diseases of the circulatory system Lipid Panel 06/20/23 E66.9 - Obesity, unspecified, E78.5 - Hyperlipidemia, unspecified, I10 - Essential (primary) hypertension, R73.01 - Impaired fasting glucose, Z86.79 - Personal history of other diseases of the circulatory system Vitamin D 25-OH Total 06/20/23 E66.9 - Obesity, unspecified, E78.5 - Hyperlipidemia, unspecified, I10 - Essential (primary) hypertension, R73.01 - Impaired fasting glucose, Z86.79 - Personal history of other diseases of the circulatory system Coding Level of Care Code Est Pt Level 4 (96141) Diagnoses Essential hypertension I10 Impaired fasting glucose R73.01 Dyslipidemia E78.5 Obesity (BMI 30.0-34.9) E66.9 History of complete heart block Z86.79
[2022-12-27 09:41] VITALS: BP 100/72; PULSE 65; O2SAT 98; BMI 33.9
== END 2022-12-27 11:19 | disposition home or self-care (01) ==
PROVIDERS: Visit Provider Internal Medicine
DX: I10 Essential (primary) hypertension (principal); Z86.79 Personal history of other diseases of the circulatory system; Z68.33 Body mass index [BMI] 33.0-33.9, adult; E66.9 Obesity, unspecified; R73.01 Impaired fasting glucose; E78.5 Hyperlipidemia, unspecified
CPT/HCPCS: 99214

== ENCOUNTER → 2023-01-07 23:59 | Outpatient (BNV) | payer MEDICARE, SELFPAY ==
--- NOTE | 2023-01-09 16:05 | MHC.OFFVIS ---
Intake Intake Visit Reasons: Remote Device Check- Medtr[employer] Allergies hydrocodone [From Vicodin] Adverse Reaction (Unknown, Verified 12/27/22 09:57) agitation [facility] Medical History (Updated 12/27/22 @ 10:28 by Dotty Savage MD) Obesity (BMI 30.0-34.9) History of complete heart block Obstructive sleep apnea Complete heart block Hx of syncope Right bundle branch block (RBBB) Essential hypertension Tubular adenoma of colon Bradycardia Increased BMI Strain of right knee Intolerance to BiPAP/CPAP Essential hypertension Impaired fasting glucose Dyslipidemia Surgical History History of permanent cardiac pacemaker placement S/P placement of cardiac pacemaker H/O colonoscopy History of excision of pilonidal cyst Family History Father HTN (hypertension) Borderline diabetes mellitus Function kidney decreased Mother HTN (hypertension) Breast cancer Brother No problems noted. Brother No problems noted. Social History Housing: House Are you a primary zoo caretaker to a significant other at home: No Do you presently have visiting nurse or other home services: No Alcohol intake: current Alcohol intake frequency: a few times a month Alcohol type: wine Patient Tobacco Use Status: Former Tobacco user Years Smoked: 40 yrs e-Cigarette/Vaping Use: Never Used Second Hand Smoke Exposure: No service: No Current occupational status: retired Cognitive needs: No Hearing needs: No Vision needs: Yes Office Procedures Cardiac Device Check Cardiac Device Check Details: Date of service- 01/07/2023 ; Battery life >12 years; normal lead parameters; AP 87%; BUSINESS BANKING SALES ASSISTANT <0.1%; possible very brief NSVT, but some of these look supraventricular. Overall normal device function. [id number] Cardiac Device Interrogation, pacemaker Procedure code (CPT) selection complete Assessment & Plan Assessment & Plan (1) Complete heart block: Code(s): I44.2 - Atrioventricular block, complete Coding Level of Care Code Procedure Only Diagnoses Complete heart block I44.2 CPT Codes Cardiac Device Check - Cardiac Device 12: [id number] Cardiac Device Interrogation, pacemaker ([id number])
== END ==
PROVIDERS: PCP Internal Medicine; Visit Provider Internal Medicine
DX: I44.2 Atrioventricular block, complete (principal); Z95.0 Presence of cardiac pacemaker
CPT/HCPCS: 93294

== ENCOUNTER → 2023-04-08 23:59 | Outpatient (BNV) | payer MEDICARE, SELFPAY ==
--- NOTE | 2023-04-08 11:41 | A.OFFVIS_ITS ---
Intake Intake Visit Reasons: Remote Device Check- Medtr[employer] Allergies hydrocodone [From Vicodin] Adverse Reaction (Unknown, Verified 12/27/22 09:57) agitation [facility] Medical History (Updated 04/08/23 @ 11:46 by Brendan Santiago MD) Bradycardia Obesity (BMI 30.0-34.9) History of complete heart block Obstructive sleep apnea Complete heart block Hx of syncope Right bundle branch block (RBBB) Essential hypertension Tubular adenoma of colon Increased BMI Strain of right knee Intolerance to BiPAP/CPAP Essential hypertension Impaired fasting glucose Dyslipidemia Surgical History History of permanent cardiac pacemaker placement S/P placement of cardiac pacemaker H/O colonoscopy History of excision of pilonidal cyst Family History Father HTN (hypertension) Borderline diabetes mellitus Function kidney decreased Mother HTN (hypertension) Breast cancer Brother No problems noted. Brother No problems noted. Social History Housing: House Are you a primary critical care nurse specialist to a significant other at home: No Do you presently have visiting nurse or other home services: No Alcohol intake: current Alcohol intake frequency: a few times a month Alcohol type: wine Patient Tobacco Use Status: Former Tobacco user Years Smoked: 40 yrs e-Cigarette/Vaping Use: Never Used Second Hand Smoke Exposure: No service: No Current occupational status: retired Cognitive needs: No Hearing needs: No Vision needs: Yes Office Procedures Cardiac Device Check Cardiac Device Check Details: Date of service- 04/08/2023 ; Battery life >12 years; normal lead parameters; AP >81%; ARMOR RECONNAISSANCE SPECIALIST <0.1%; some brief Atach; NSVT, nothing sustained. One strip-can't exclude AFib, but again only seconds. Overall normal device function. [id number] Cardiac Device Interrogation, pacemaker Procedure code (CPT) selection complete Assessment & Plan Assessment & Plan (1) Bradycardia: Code(s): R00.1 - Bradycardia, unspecified Plan x Coding Level of Care Code Procedure Only Diagnoses Bradycardia R00.1 CPT Codes Cardiac Device Check - Cardiac Device 12: [id number] Cardiac Device Interrogation, pacemaker ([id number])
== END ==
PROVIDERS: PCP Internal Medicine; Visit Provider Internal Medicine
DX: R00.1 Bradycardia, unspecified (principal); Z95.0 Presence of cardiac pacemaker
CPT/HCPCS: 93294

== ENCOUNTER 2023-06-02 13:07 | Outpatient (AMB) | payer MEDICARE, SELFPAY ==
[2023-06-02 13:27] VITALS: BP 146/82; PULSE 65; BMI 35.3
--- NOTE | 2023-06-02 13:27 | A.OFFVIS_ITS ---
Intake Vital Signs 06/02/23 13:27 Height 5 ft 6 in Weight 218 lb 11.177 oz BMI 35.3 BP 146/82 H Blood Pressure Location Lt brachial Position Sitting Pulse 65 Intake Visit Reasons: 1 yr fu w/ Medtr[employer] Intake Note: 1 year follow up w/ EKG Automobile Damage Appraiser Required: No Accompanied by: Self / Same As Patient Allergies hydrocodone [From Vicodin] Adverse Reaction (Unknown, Verified 06/02/23 13:28) agitation Medication List - Last Reconciled 06/02/23 by Brendan Santiago MD doxycycline hyclate 20 mg PO BID lisinopril 10 mg (2 x 5 mg) PO DAILY multivitamin 1 tab PO DAILY HPI HPI Comments History of Present Illness Details Mert returns for follow-up. Overall, he is doing fine. No complaints like angina or shortness of breath or in fact anything cardiac sounding. In the past, had syncopal episode that led to diagnosis of third-degree heart block leading to pacemaker implantation. Otherwise, no known coronary disease myocardial infarction. Has obesity, untreated obstructive sleep apnea. Also hypertension on lisinopril. [facility] Medical History (Updated 06/02/23 @ 14:34 by Brendan Santiago MD) Bradycardia Obesity (BMI 30.0-34.9) History of complete heart block Obstructive sleep apnea Complete heart block Hx of syncope Right bundle branch block (RBBB) Essential hypertension Tubular adenoma of colon Increased BMI Strain of right knee Intolerance to BiPAP/CPAP Essential hypertension Impaired fasting glucose Dyslipidemia Surgical History History of permanent cardiac pacemaker placement S/P placement of cardiac pacemaker H/O colonoscopy History of excision of pilonidal cyst Family History Father HTN (hypertension) Borderline diabetes mellitus Function kidney decreased Mother HTN (hypertension) Breast cancer Brother No problems noted. Brother No problems noted. Social History Housing: House Are you a primary floor care specialist to a significant other at home: No Do you presently have visiting nurse or other home services: No Alcohol intake: current Alcohol intake frequency: a few times a month Alcohol type: wine Patient Tobacco Use Status: Former Tobacco user Years Smoked: 40 yrs e-Cigarette/Vaping Use: Never Used Second Hand Smoke Exposure: No service: No Current occupational status: retired Cognitive needs: No Hearing needs: No Vision needs: Yes Review of Systems Const Denies weakness ENT Denies dizziness Card Denies chest pain, Denies chest pain with activity, Denies syncope, Denies rapid heart rate, Denies pedal edema, Denies edema, Denies leg edema, Denies lightheadedness, Denies palpitations, Denies dyspnea, Denies dyspnea on exertion and Denies orthopnea Resp Denies cough, Denies dyspnea and Denies dyspnea on exertion GI Denies hematochezia and Denies change in stool character Musc Denies abnormal gait, Denies muscle cramps, Denies muscle weakness, Denies numbness, Denies radiating pain into limb and Denies tingling Neuro Denies abnormal gait, Denies dizziness, Denies syncope, Denies numbness, Denies tingling and Denies weakness Endo Denies palpitations Physical Exam Vital Signs: Last Vital Signs Pulse 65 06/02/23 13:27 BP 146/82 H 06/02/23 13:27 BMI result Body Mass Index 35.3 Const General: comfortable and no acute distress Orientation/consciousness: patient oriented x3 HEENT Other: Unremarkable Head: Yes normal to inspection Neck Neck: Yes normal visual inspection Chest Chest palpation & inspection: normal inspection of the chest Resp Auscultation: clear to auscultation bilaterally Cardio Palpation: normal PMI Heart sounds: S1 normal heart sound present, S2 normal heart sound present, no gallops, no murmurs and no rubs GI Palpation (GI): Soft to palpation Back/Spine/Pelvis Other: unremarkable Skin General skin exam: no rashes or lesions noted Neuro General: patient oriented x3 Extrem General: Yes normal to inspection Psych Mental Status: mental status grossly normal Office Procedures Cardiac Device Check Cardiac Device Check Details: Pacemaker interrogated today. Dual-chamber device, programmed in AAIR-DDDR mode. Normal lead parameters. Atrial pacing 86%. Ventricular pacing < 0.1%. One episode of possible atrial fibrillation but lasting only 34 seconds. Other episodes thought to be rather SVT. Overall, normal device function. [id number] Cardiac Device Check, pacemaker dual lead Procedure code (CPT) selection complete EKG Details: EKG with possible atrial paced rhythm per computer interpretation but difficult to see the pacing spikes. Right bundle-branch block pattern. [id number], Complete Assessment & Plan Assessment & Plan (1) Complete heart block: Code(s): I44.2 - Atrioventricular block, complete (2) Status post cardiac pacemaker procedure: Code(s): Z95.0 - Presence of cardiac pacemaker (3) Essential hypertension: Code(s): I10 - Essential (primary) hypertension (4) Morbid obesity due to excess calories: Code(s): E66.01 - Morbid (severe) obesity due to excess calories (5) Obstructive sleep apnea: Code(s): G47.33 - Obstructive sleep apnea (adult) (pediatric) Plan Echocardiogram with LVEF 55-60%. Mild increase in RV size. Suspected aortic valve calcification. Ascending aortic size 3.7 cm. There is a repeat echocardiogram from [facility] that also shows LVEF of 55-60%. Otherwise unremarkable. Normal myocardial perfusion imaging. Overall, normal pacemaker function. Original indication was complete heart block but do not see any clear ventricular pacing at all. He only has atrial pacing. Otherwise, with regard to blood pressure, slightly on the higher side. He remains on lisinopril. He states he will discuss that with his own PCP. For his obesity, should lose some weight. With regard to HERBERTH, not interested in CPAP and has been discussed in the past as well as today. Coding Level of Care Code Est Pt Level 4 (17179) Diagnoses Complete heart block I44.2 Status post cardiac pacemaker procedure Z95.0 Essential hypertension I10 Morbid obesity due to excess calories E66.01 Obstructive sleep apnea G47.33 CPT Codes Cardiac Device Check - Cardiac Device 2: [id number] Cardiac Device Check, pacemaker dual lead ([id number]) EKG - CPT: 07215-[id number], Complete ([id number])
== END 2023-06-02 13:46 | disposition home or self-care (01) ==
PROVIDERS: PCP Internal Medicine; Visit Provider Internal Medicine
DX: I44.2 Atrioventricular block, complete (principal); Z95.0 Presence of cardiac pacemaker; I10 Essential (primary) hypertension; E66.01 Morbid (severe) obesity due to excess calories; Z68.35 Body mass index [BMI] 35.0-35.9, adult; G47.33 Obstructive sleep apnea (adult) (pediatric); R94.31 Abnormal electrocardiogram [ECG] [EKG]
CPT/HCPCS: 93010; 93280; 99214

== ENCOUNTER → 2023-06-02 13:07 | Outpatient (BNVA) | payer MEDICARE, SELFPAY | PROVIDERS: PCP Internal Medicine; Visit Provider Internal Medicine | DX: Z45.018 Encounter for adjustment and management of other part of cardiac pacemaker (principal); I44.2 Atrioventricular block, complete; I10 Essential (primary) hypertension; E66.01 Morbid (severe) obesity due to excess calories; G47.33 Obstructive sleep apnea (adult) (pediatric); Z68.35 Body mass index [BMI] 35.0-35.9, adult | CPT/HCPCS: 93005; 93280; 99212 ==

== ENCOUNTER 2023-06-25 08:18 | Outpatient (REF) | payer MEDICARE, SELFPAY ==
[2023-06-25 13:35] LABS: Anion Gap 10 (12-20); Blood Urea Nitrogen 20 mg/dL (9-16); Calcium 9.4 mg/dL (8.4-10.2); Carbon Dioxide 30 mmol/L (22-29); Chloride 104 mmol/L (96-108); Cholesterol 193 mg/dL (<200); Estimated Glomerular Filt Rate > 60; Glucose Fasting 112 mg/dL (60-99); HDL Cholesterol 92 mg/dL (>40); LDL Cholesterol Calculated 88 mg/dL (<100); Potassium 4.3 mmol/L (3.3-5.1); Sodium 140 mmol/L (135-145); Triglycerides 68 mg/dL (<150)
[2023-06-25 14:00] LABS: Vitamin D 25-OH Total 50.6 ng/mL (>30)
== END 2023-06-25 08:19 | disposition home or self-care (01) ==
LOC: HO.HMGCLDS 08:18
PROVIDERS: PCP Internal Medicine; Visit Provider Internal Medicine
DX: E66.9 Obesity, unspecified (principal); R73.01 Impaired fasting glucose; I10 Essential (primary) hypertension; E78.5 Hyperlipidemia, unspecified; Z86.79 Personal history of other diseases of the circulatory system
CPT/HCPCS: 36415; 80048; 80061; 82306

== ENCOUNTER 2023-06-27 09:27 | Outpatient (AMB) | payer MEDICARE, SELFPAY ==
[2023-06-27 09:34] VITALS: BP 120/76; PULSE 82; O2SAT 98; BMI 34.5
--- NOTE | 2023-06-27 09:34 | A.OFFPC_ITS ---
Vital Signs 06/27/23 09:34 Height 5 ft 6 in Weight 214 lb BMI 34.5 BP 120/76 Blood Pressure Location Lt brachial Position Sitting Pulse 82 Pulse Source Pulse Oximeter Pulse Oximetry (%) 98 Oxygen Delivery Method Room Air Intake Visit Reasons: PE/ 6 Month follow up Intake Note: Pt is here today for PE. Allergies hydrocodone [From Vicodin] Adverse Reaction (Unknown, Verified 06/29/23 01:39) agitation Medication List - Last Reconciled 06/29/23 by Dotty Savage MD doxycycline hyclate 20 mg PO BID lisinopril 10 mg (2 x 5 mg) PO DAILY multivitamin 1 tab PO DAILY Tobacco use date assessed: 06/27/23 Fall risk assessment: 1 Fall in past year Last assessed Fall Risk: 06/27/23 Dental Screening Dental Screen Date: 06/27/23 Did you have a dental visit in the last 12 months?: Yes Did you have a dental problem in the last 6 months where you did not have access to dental care?: No Was dental information given to patient?: Patient has dentist HPI PE/ 6 Month follow up HPI Details 72-year-old male with hypertension, obes ity, history of complete heart block status post pacemaker placement history of obstructive sleep apnea intolerant of CPAP, has impaired fasting glucose and dyslipidemia, here today for his physical exam. He has been compliant with following a healthy diet, cutting back on portions and avoiding a lot of carbohydrates. He however has not been exercising much due to the weather. Has been feeling well, with no complaints at present time. [facility] Medical History (Updated 06/29/23 @ 03:10 by Dotty Savage MD) Bradycardia Obesity (BMI 30.0-34.9) History of complete heart block Obstructive sleep apnea Complete heart block Hx of syncope Right bundle branch block (RBBB) Essential hypertension Tubular adenoma of colon Increased BMI Strain of right knee Intolerance to BiPAP/CPAP Essential hypertension Impaired fasting glucose Dyslipidemia Surgical History (Updated 06/29/23 @ 03:10 by Dotty Savage MD) Status post cardiac pacemaker procedure History of permanent cardiac pacemaker placement S/P placement of cardiac pacemaker H/O colonoscopy History of excision of pilonidal cyst Family History Father HTN (hypertension) Borderline diabetes mellitus Function kidney decreased Mother HTN (hypertension) Breast cancer Brother No problems noted. Brother No problems noted. Social History Housing: House Are you a primary palliative care specialist to a significant other at home: No Do you presently have visiting nurse or other home services: No Alcohol intake: current Alcohol intake frequency: a few times a month Alcohol type: wine Patient Tobacco Use Status: Former Tobacco user Years Smoked: 40 yrs e-Cigarette/Vaping Use: Never Used Second Hand Smoke Exposure: No service: No Current occupational status: retired Cognitive needs: No Hearing needs: No Vision needs: Yes Questionnaire PHQ-9 Over the last 2 weeks, how often have you been bothered by any of the following problems? 1. Little interest or pleasure in doing things: not at all 2. Feeling down, depressed, or hopeless: not at all 3. Trouble falling or staying asleep, or sleeping too much: not at all 4. Feeling tired or having little energy: not at all 5. Poor appetite or overeating: not at all 6. Feeling bad about yourself - or that you are a failure or have let yourself or your family down: not at all 7. Trouble concentrating on things, such as reading the newspaper or watching television: not at all 8. Moving or speaking so slowly that other people could have noticed. Or the opposite - being so fidgety or restless that you have been moving around a lot more than usual: not at all 9. Thoughts that you would be better off or of hurting yourself in some way: not at all Total score: 0 Depression Screening Interpretation: Negative Depression Screening Done: Yes 41113 - PHQ-9 Billing: Yes Source: Developed by Drs. Nathen Sheffield, Rebecca Brown, Linwood Raphael and colleagues, with an educational luis antonio from [employer]. Thrive Questionnaire Date Thrive assessed: 06/27/23 I am a: Patient What is your living situation today?: I have a steady place to live Within the past 12 months, did the food you bought not last and you didn't have the money to get more?: Never true Within the past 12 months, did you worry whether your food would run out before you got money to buy more?: Never true Do you have trouble paying for medicines?: No Do you have trouble getting transportation to medical appointments?: No Do you have trouble paying your heating and electricity bill?: No Do you have trouble taking care of your child, family member or friend?: No Do you have trouble with day-to-day activities such as bathing, preparing meals, shopping, managing finances, etc.?: No Are you currently unemployed and looking for a job?: No Are you interested in more education?: No THRIVE Score: 0 AUDIT C Alcohol Use Questionnaire (AUDIT-C) 1. How often do you have a drink containing alcohol?: 2-4 times a month 2. How many drinks containing alcohol do you have on a typical day when you are drinking?: 1 or 2 3. How often do you have six or more drinks on one occasion?: Never Total Score: 2 DAYRON-7 AMB Questionnaire DAYRON-7 Date DAYRON - 7 assessed: 06/27/23 Feeling nervous, anxious, or on edge: 0 = Not at all Not being able to stop or control worryin = Not at all Worrying too much about different things: 1 = Several days Trouble relaxin = Not at all Being so restless that it is hard to sit still: 0 = Not at all Becoming easily annoyed or irritable: 0 = Not at all Feeling afraid as if something awful might happen: 0 = Not at all Total DAYRON-7 score (0-4 normal; 5-9 mild; 10-14 moderate; 15-21 severe): 1 Source: Developed by Drs. Nathen Sheffield, Rebecca Brown, Linwood Raphael and colleagues, with an educational luis antonio from [employer]. DAYRON-7 Assessment Billing DAYRON-7 Assessment Tool: DAYRON-7 Assessment 44008 Review of Systems Const Reports no additional complaints and Reports weight loss Eyes Denies change in vision ENT Reports no additional complaints Card Denies chest pain, Denies chest pain with activity, Denies rapid heart rate, Denies pedal edema, Denies lightheadedness, Denies dyspnea and Denies dyspnea on exertion Resp Denies cough, Denies dyspnea and Denies dyspnea on exertion GI Denies abdominal pain, Denies hematochezia, Denies change in bowel habits and Denies heartburn Reports no additional complaints Musc Reports no additional complaints Skin/Breast Denies rash Neuro Reports no additional complaints and Denies Abnormal speech present Psych Reports no additional complaints Endo Reports no additional complaints Romeo/Lymph Denies easy bleeding and Denies easy bruising Aller/Immun Reports no additional complaints Physical exam (Primary Care) Vital Signs: Last Vital Signs Pulse 82 06/27/23 09:34 BP 120/76 06/27/23 09:34 Pulse Ox 98 06/27/23 09:34 Oxygen Delivery Method Room Air 06/27/23 09:34 BMI result Body Mass Index 34.5 Tobacco/Smoking Status: Tobacco use Status Tobacco use date assessed 06/27/23 06/27/23 09:38 Patient Tobacco Use Status Former Tobacco user 06/27/23 09:38 e-Cigarette/Vaping Use Never Used 06/27/23 09:38 Depression Screening Interpretation: Negative Thrive Assessment: Date of Thrive Assessment Date Thrive assessed 06/27/22 06/27/23 09:38 Const General: no acute distress and alert Orientation/consciousness: patient oriented x3 Limitations: no limitations HENMT Ears: external ears normal General nose exam: Normal external nose present and No nasal discharge present Mouth: Normal oral and palatal mucosa present and moist mucous membranes Eyes General: appearance normal, both eyes and all related structures Conjunctivae: conjunctivae normal Sclerae: sclerae normal Pupils: Equal, round and reactive pupils present EOM: EOMs intact bilaterally Neck Neck: Yes full ROM, Yes no lymphadenopathy and Yes supple Resp Effort & Inspection: normal respiratory effort and able to speak in complete sentences Auscultation: clear to auscultation bilaterally Cardio Rate: regular rate Rhythm: regular rhythm Heart sounds: S1 normal heart sound present and S2 normal heart sound present GI Palpation (GI): Soft to palpation, nontender and no masses Auscultation: normal bowel sounds Back/Spine/Pelvis Back: No back tenderness Neuro General: patient oriented x3, gait normal, tone normal, moves all extremities, Normal light touch and pain sensation and no focal motor deficits Cranial nerves: Yes CN's II-XII intact bilaterally and Yes Equal, round and reactive pupils present Cognition (Neuro): normal cognition Speech: No Abnormal speech present Extrem General: Yes full ROM, Yes no joint enlargement, Yes no clubbing, cyanosis or edema and Yes no calf tenderness Psych Appearance: grossly normal and well kempt Mental Status: mental status grossly normal Speech and movement: Normal speech and movement present Affect: normal affect Attitude: cooperative Thought process: Normal thought process present Results Reviewed Results Reviewed: RUN: 06/29/238 PAGE 1 [facility] [address] [place] [id number] Route Salesperson: Teddy Hoff M.D. Specimen Inquiry Name: Mert Gonzalez Age/Sex: 72/M : 1950 Unit#: [id number] Attend Dr: Dotty Savage MD Re06/25/23 Status: DEP REF Location: [facility] Disch: SPEC : [id number] SAMMIE: 06/25/23 STATUS: COMP REQ : [id number] RECD: 06/25/[address]: Dotty Savage MD COMP: 06/25/23 ENTERED: 06/25/[address] [facility] DR: ORDERED: Met Prof Fast, Lipid Panel, Vitamin D 25-OH Test Result Flag Reference Sodium 140 135-145 mmol/L Potassium 4.3 3.3-5.1 mmol/L CL 104 96-108 mmol/L CO2 30 H 22-29 mmol/L Gap 10 L 12-20 BUN 20 H 9-16 mg/dL Creat 0.87 0.5-1.4 mg/dL EGFR > 60 NOTE: For -[place] individuals, multiply the result by 1.210. Chronic Kidney Disease: Estimated GFR < 60 mL/min/1.73m2 Severe Kidney Disease: Estimated GFR < 15 mL/min/1.73m2 FBS 112 H 60-99 mg/dL A fasting glucose from 100-125 mg/dl is considered impaired (pre-diabetes). CA 9.4 8.4-10.2 mg/dL Triglyceride 68 <150 mg/dL Desirable Triglyceride: less than 150 mg/dL Borderline High Triglyceride 150-199 mg/dL High Triglyceride: 200-499 mg/dL Very High Triglyceride: greater than or equal to 5OO mg/dL Cholesterol 193 <200 mg/dL Desirable Cholesterol: less than 200 mg/dL Borderline High Cholesterol: 200-239 mg/dL High Cholesterol: greater than 239 mg/dL LDL Calculated 88 <100 mg/dL Desirable LDL: less than 100 mg/dL Near Optimal/Above Optimal LDL: 110-129 mg/dL Borderline High LDL: 130-159 mg/dL High LDL: 160-189 mg/dL Very High LDL: greater than or equal to 190 mg/dL HDL 92 >40 mg/dL Desirable HDL: greater than 40 mg/dL Note: This HDL assay may give artificially low results in patients with liver disease. Vit D 25-OH Tot 50.6 >30 ng/mL Health Based Reference Values* < 20 ng/mL Deficient 20-30 ng/mL Insufficient > 30 ng/mL Sufficient *Ernestine HORN. N Engl J Med. 2007;[id number] Care must be taken in interpreting Vitamin D results from different laboratories and methodologies. Published data demonstrated that results from patients undergoing hemodialysis may show a negative bias when tested with various automated 25-OH vitamin D assays when compared to LC-MS/MS. When testing samples from patients whose predominant form of Vitamin D is Vitamin D2, such as patients receiving Vitamin D2 supplementation, results that are subtherapeutic should be confirmed with another method such as LC-MS/MS. Assessment and Plan Assessment & Plan (1) Impaired fasting glucose: Code(s): R73.01 - Impaired fasting glucose Plan: Continue with adherence to healthy eating habits and regular exercise. Your fasting blood sugar is elevated above 100 mg/dL. Impaired glucose metabolism makes you at risk for developing diabetes mellitus type 2, as well as heart attack and stroke later on. Lifestyle changes , weight loss, healthy eating habits, and regular exercise are important, and can prevent the progression to diabetes (2) Essential hypertension: Code(s): I10 - Essential (primary) hypertension Plan: Blood pressure at goal of less than 130/80. Continue lisinopril 10 mg daily. Reinforced importance of following a low sodium diet, getting regular exercise, and lowering stress levels. (3) Dyslipidemia: Code(s): E78.5 - Hyperlipidemia, unspecified Plan: Fasting lipid panel are within normal limits, continue with healthy eating habits and regular exercise (4) History of complete heart block: Code(s): Z86.79 - Personal history of other diseases of the circulatory system Plan: Now has pacemaker in place (5) Obstructive sleep apnea: Code(s): G47.33 - Obstructive sleep apnea (adult) (pediatric) Plan: Continue with weight loss through diet and exercise, patient intolerant of CPAP or BiPAP (6) Tubular adenoma of colon: Code(s): D12.6 - Benign neoplasm of colon, unspecified Plan: Up-to-date with screening colonoscopy, done last [address] Doe, due again in 2025 (7) Intolerance to BiPAP/CPAP: (8) Obesity (BMI 30.0-34.9): Code(s): E66.9 - Obesity, unspecified Plan: Recommended focusing on improving health instead of dieting. Mediterranean diet is a healthy diet that helps, limit food high in fat, sugar, and calories. Eat slowly, pay attention to portion sizes, plan your meals ahead of time, start regular physical activity, at least 150 minutes of moderate intensity exercise, or 90 minutes per week of vigorous exercise. (9) Annual visit for general adult medical examination with abnormal findings: Code(s): Z00.01 - Encounter for general adult medical examination with abnormal findings Plan: Latest fasting lab results reviewed with patient. Continue with regular dental visit every 6 months and regular eye exams, at least every 2 years. Do regular testicular exam to check for any mass. Reminded that his screening colonoscopy copies again due in 2025. Up-to-date with all his vaccines except for his shingles vaccination Coding Level of Care Code Est Pt Prev Care >65y(28888) Diagnoses Impaired fasting glucose R73.01 Essential hypertension I10 Dyslipidemia E78.5 History of complete heart block Z86.79 Obstructive sleep apnea G47.33 Tubular adenoma of colon D12.6 Intolerance to BiPAP/CPAP Obesity (BMI 30.0-34.9) E66.9 Annual visit for general adult medical examination with abnormal findings Z00.01 Additional Codes DAYRON-7 Assessment Billing - DAYRON-7 Assessment Tool: DAYRON-7 Assessment 36751 ([id number])
== END 2023-06-27 10:11 | disposition home or self-care (01) ==
PROVIDERS: PCP Internal Medicine; Visit Provider Internal Medicine
DX: Z00.00 Encounter for general adult medical examination without abnormal findings (principal); R73.01 Impaired fasting glucose; I10 Essential (primary) hypertension; E78.5 Hyperlipidemia, unspecified; E66.9 Obesity, unspecified; Z86.79 Personal history of other diseases of the circulatory system; G47.33 Obstructive sleep apnea (adult) (pediatric); Z68.34 Body mass index [BMI] 34.0-34.9, adult; D12.6 Benign neoplasm of colon, unspecified
CPT/HCPCS: 99397

== ENCOUNTER → 2023-10-07 23:59 | Outpatient (BNV) | payer MEDICARE, SELFPAY ==
--- NOTE | 2023-10-16 13:58 | A.OFFVIS_ITS ---
Intake Visit Reasons: Remote Device Check- [employer] Allergies hydrocodone [From Vicodin] Adverse Reaction (Unknown, Verified 06/29/23 01:39) agitation PFSH Medical History (Updated 10/16/23 @ 14:00 by Brendan Santiago MD) Bradycardia Obesity (BMI 30.0-34.9) History of complete heart block Obstructive sleep apnea Complete heart block Hx of syncope Right bundle branch block (RBBB) Essential hypertension Tubular adenoma of colon Increased BMI Strain of right knee Intolerance to BiPAP/CPAP Essential hypertension Impaired fasting glucose Dyslipidemia Surgical History (Updated 06/29/23 @ 03:10 by Dotty Savage MD) Status post cardiac pacemaker procedure History of permanent cardiac pacemaker placement S/P placement of cardiac pacemaker H/O colonoscopy History of excision of pilonidal cyst Family History Father HTN (hypertension) Borderline diabetes mellitus Function kidney decreased Mother HTN (hypertension) Breast cancer Brother No problems noted. Brother No problems noted. Social History Housing: House Are you a primary neonatal intensive care nurse to a significant other at home: No Do you presently have visiting nurse or other home services: No Alcohol intake: current Alcohol intake frequency: a few times a month Alcohol type: wine Patient Tobacco Use Status: Former Tobacco user Years Smoked: 40 yrs e-Cigarette/Vaping Use: Never Used Second Hand Smoke Exposure: No service: No Current occupational status: retired Cognitive needs: No Hearing needs: No Vision needs: Yes Office Procedures Cardiac Device Check Cardiac Device Check Details: Date of service- 10/07/2023 ; Battery life >11 years; normal lead parameters; AP 86%; RECEIVABLES SPECIALIST <0.1%; reported NSVT episodes could be supraventricular. Overall normal device function. [id number] Cardiac Device Interrogation, pacemaker Procedure code (CPT) selection complete Assessment & Plan Assessment & Plan (1) Heart block: Code(s): I45.9 - Conduction disorder, unspecified Category: Medical Plan x Coding Level of Care Code Procedure Only Diagnoses Heart block I45.9 CPT Codes Cardiac Device Check - Cardiac Device 12: [id number] Cardiac Device Interrogation, pacemaker ([id number])
== END ==
PROVIDERS: PCP Internal Medicine; Visit Provider Internal Medicine
DX: I47.10 Supraventricular tachycardia, unspecified (principal); I44.30 Unspecified atrioventricular block; Z95.0 Presence of cardiac pacemaker
CPT/HCPCS: 93294

== ENCOUNTER → 2024-01-05 23:59 | Outpatient (BNV) | payer MEDICARE, SELFPAY ==
--- NOTE | 2024-01-11 10:01 | MHC.OFFVIS ---
Intake Visit Reasons: Remote device check- [employer] Allergies hydrocodone [From Vicodin] Adverse Reaction (Unknown, Verified 06/29/23 01:39) agitation [facility] Medical History (Updated 10/16/23 @ 14:00 by Brendan Santiago MD) Bradycardia Obesity (BMI 30.0-34.9) History of complete heart block Obstructive sleep apnea Complete heart block Hx of syncope Right bundle branch block (RBBB) Essential hypertension Tubular adenoma of colon Increased BMI Strain of right knee Intolerance to BiPAP/CPAP Essential hypertension Impaired fasting glucose Dyslipidemia Surgical History (Updated 06/29/23 @ 03:10 by Dotty Savage MD) Status post cardiac pacemaker procedure History of permanent cardiac pacemaker placement S/P placement of cardiac pacemaker H/O colonoscopy History of excision of pilonidal cyst Family History Father HTN (hypertension) Borderline diabetes mellitus Function kidney decreased Mother HTN (hypertension) Breast cancer Brother No problems noted. Brother No problems noted. Social History Housing: House Are you a primary health care marketing manager to a significant other at home: No Do you presently have visiting nurse or other home services: No Alcohol intake: current Alcohol intake frequency: a few times a month Alcohol type: wine Patient Tobacco Use Status: Former Tobacco user Years Smoked: 40 yrs e-Cigarette/Vaping Use: Never Used Second Hand Smoke Exposure: No service: No Current occupational status: retired Cognitive needs: No Hearing needs: No Vision needs: Yes Office Procedures Cardiac Device Check Cardiac Device Check Details: Date of service- 01/05/2024 ; Battery life >11 years; normal lead parameters; AP 87%; LOCKSTITCH FRONT EDGE TAPE SEWER <0.1%; very brief NSVT. Overall normal device function. [id number] Cardiac Device Interrogation, pacemaker Procedure code (CPT) selection complete Assessment & Plan Assessment & Plan (1) Heart block: Code(s): I45.9 - Conduction disorder, unspecified Category: Medical Plan x Coding Level of Care Code Procedure Only Diagnoses Heart block I45.9 CPT Codes Cardiac Device Check - Cardiac Device 12: [id number] Cardiac Device Interrogation, pacemaker ([id number])
== END ==
PROVIDERS: PCP Internal Medicine; Visit Provider Internal Medicine
DX: I45.9 Conduction disorder, unspecified (principal); Z95.0 Presence of cardiac pacemaker
CPT/HCPCS: 93294

== ENCOUNTER 2024-01-13 06:59 | Outpatient (REF) | payer MEDICARE, SELFPAY ==
[2024-01-13 10:23] LABS: Estimated Average Glucose 117 mg/dL; Hemoglobin A1c % 5.7 % (<6.0)
[2024-01-13 10:48] LABS: Alanine Aminotransferase 26 U/L (0-40); Anion Gap 11 (12-20); Aspartate Amino Transferase 26 U/L (5-37); Blood Urea Nitrogen 17 mg/dL (9-16); Calcium 9.2 mg/dL (8.4-10.2); Carbon Dioxide 27 mmol/L (22-29); Chloride 109 mmol/L (96-108); Cholesterol 188 mg/dL (<200); Estimated Glomerular Filt Rate > 60; Glucose Fasting 114 mg/dL (60-99); HDL Cholesterol 78 mg/dL (>40); LDL Cholesterol Calculated 95 mg/dL (<100); Potassium 3.9 mmol/L (3.3-5.1); Sodium 143 mmol/L (135-145); Triglycerides 77 mg/dL (<150)
== END 2024-01-13 07:00 | disposition home or self-care (01) ==
LOC: HO.HMGCLDS 06:59
PROVIDERS: PCP Internal Medicine; Visit Provider Internal Medicine
DX: E66.9 Obesity, unspecified (principal); Z86.79 Personal history of other diseases of the circulatory system; I10 Essential (primary) hypertension; R73.01 Impaired fasting glucose; E78.5 Hyperlipidemia, unspecified
CPT/HCPCS: 36415; 80048; 80061; 83036; 84450; 84460

== ENCOUNTER 2024-01-15 09:30 | Outpatient (AMB) | payer MEDICARE, SELFPAY ==
[2024-01-15 09:52] VITALS: BP 112/78; PULSE 60; O2SAT 97; BMI 34.4
--- NOTE | 2024-01-15 09:52 | MHC.PC.OV ---
Vital Signs 01/15/24 09:52 Height 5 ft 6 in Weight 213 lb BMI 34.4 BP 112/78 Blood Pressure Location Rt brachial Position Sitting Pulse 60 Pulse Source Pulse Oximeter Pulse Oximetry (%) 97 Oxygen Delivery Method Room Air Intake Visit Reasons: 5M F/U BP Intake Note: Pt is here today for his 5mo. f/u b/p Allergies hydrocodone [From Vicodin] Adverse Reaction (Unknown, Verified 01/15/24 10:17) agitation Medication List - Last Reconciled 01/15/24 by Dotty Savage MD acetaminophen ER (Tylenol Arthritis Pain) 650 mg PO Q12H diphenhydramine HCl (Benadryl) 25 mg PO DAILY PRN doxycycline hyclate 20 mg PO BID lisinopril 10 mg (2 x 5 mg) PO DAILY multivitamin 1 tab PO DAILY simethicone (Gas Relief (simethicone)) 80 mg PO BID-QID PRN Tobacco use date assessed: 01/15/24 Fall risk assessment: No Falls in past year Last assessed Fall Risk: 01/15/24 Dental Screening Dental Screen Date: 01/15/24 Did you have a dental visit in the last 12 months?: Yes Did you have a dental problem in the last 6 months where you did not have access to dental care?: No Was dental information given to patient?: Patient has dentist HPI 5M F/U BP HPI Details 73-year-old male here today for follow-up on his skin, and prediabetes. Has been compliant with his diet, does a lot of work inside the house. Recent fasting labs showed hemoglobin A1c at 5.7 with normal lipids, liver enzymes and electrolytes. Complains of pain on lateral aspect of right elbow. Has been doing a lot of painting at home. Takes Tylenol arthritis and resting of the joint, which has been helping [facility] Medical History (Updated 01/15/24 @ 10:34 by Dotty Savage MD) Right lateral epicondylitis Bradycardia Obesity (BMI 30.0-34.9) History of complete heart block Obstructive sleep apnea Complete heart block Hx of syncope Right bundle branch block (RBBB) Essential hypertension Tubular adenoma of colon Increased BMI Intolerance to BiPAP/CPAP Essential hypertension Impaired fasting glucose Dyslipidemia Surgical History Status post cardiac pacemaker procedure History of permanent cardiac pacemaker placement S/P placement of cardiac pacemaker H/O colonoscopy History of excision of pilonidal cyst Family History Father HTN (hypertension) Borderline diabetes mellitus Function kidney decreased Mother HTN (hypertension) Breast cancer Brother No problems noted. Brother No problems noted. Social History Housing: House Are you a primary youth care professional to a significant other at home: No Do you presently have visiting nurse or other home services: No Alcohol intake: current Alcohol intake frequency: a few times a month Alcohol type: wine Patient Tobacco Use Status: Former Tobacco user Years Smoked: 40 yrs e-Cigarette/Vaping Use: Never Used Second Hand Smoke Exposure: No service: No Current occupational status: retired Cognitive needs: No Hearing needs: No Vision needs: Yes Questionnaire PHQ-9 Over the last 2 weeks, how often have you been bothered by any of the following problems? 1. Little interest or pleasure in doing things: not at all 2. Feeling down, depressed, or hopeless: not at all 3. Trouble falling or staying asleep, or sleeping too much: not at all 4. Feeling tired or having little energy: not at all 5. Poor appetite or overeating: not at all 6. Feeling bad about yourself - or that you are a failure or have let yourself or your family down: not at all 7. Trouble concentrating on things, such as reading the newspaper or watching television: not at all 8. Moving or speaking so slowly that other people could have noticed. Or the opposite - being so fidgety or restless that you have been moving around a lot more than usual: not at all 9. Thoughts that you would be better off or of hurting yourself in some way: not at all Total score: 0 Depression Screening Interpretation: Negative Depression Screening Done: Yes 93852 - PHQ-9 Billing: Yes Source: Developed by Drs. Ntahen Sheffield, Rebecca Brown, Linwood Raphael and colleagues, with an educational luis antonio from [employer]. Thrive Questionnaire Date Thrive assessed: 01/15/24 I am a: Patient What is your living situation today?: I choose not to answer this question Within the past 12 months, did the food you bought not last and you didn't have the money to get more?: I choose not to answer this question Within the past 12 months, did you worry whether your food would run out before you got money to buy more?: I choose not to answer this question Do you have trouble paying for medicines?: I choose not to answer this question Do you have trouble getting transportation to medical appointments?: I choose not to answer this question Do you have trouble paying your heating and electricity bill?: I choose not to answer this question Do you have trouble taking care of your child, family member or friend?: I choose not to answer this question Do you have trouble with day-to-day activities such as bathing, preparing meals, shopping, managing finances, etc.?: I choose not to answer this question Are you interested in more education?: I choose not to answer this question Please select the resources that you would like help with: None Currently or been in a relationship where the following occur: I choose not to answer THRIVE Score: 0 DAYRON-7 AMB Questionnaire DAYRON-7 Date DAYRON - 7 assessed: 01/15/24 Feeling nervous, anxious, or on edge: 0 = Not at all Not being able to stop or control worryin = Not at all Worrying too much about different things: 0 = Not at all Trouble relaxin = Not at all Being so restless that it is hard to sit still: 0 = Not at all Becoming easily annoyed or irritable: 0 = Not at all Feeling afraid as if something awful might happen: 0 = Not at all Total DAYRON-7 score (0-4 normal; 5-9 mild; 10-14 moderate; 15-21 severe): 0 Source: Developed by Drs. Nathen Sheffield, Rebecca Brown, Linwood Raphael and colleagues, with an educational luis antonio from [employer]. DAYRON-7 Assessment Billing DAYRON-7 Assessment Tool: DAYRON-7 Assessment 84278 Review of Systems Const Reports no additional complaints Eyes Denies change in vision ENT Reports no additional complaints Card Denies chest pain, Denies chest pain with activity, Denies rapid heart rate, Denies pedal edema, Denies lightheadedness, Denies dyspnea and Denies dyspnea on exertion Resp Denies cough, Denies dyspnea and Denies dyspnea on exertion GI Denies abdominal pain, Denies hematochezia, Denies change in bowel habits and Denies heartburn Reports no additional complaints Musc Reports as per HPI Skin/Breast Denies rash Neuro Reports no additional complaints and Denies Abnormal speech present Psych Reports no additional complaints Endo Reports no additional complaints Romeo/Lymph Denies easy bleeding and Denies easy bruising Aller/Immun Reports no additional complaints Physical exam (Primary Care) Vital Signs: Last Vital Signs Pulse 60 01/15/24 09:52 BP 112/78 01/15/24 09:52 Pulse Ox 97 01/15/24 09:52 Oxygen Delivery Method Room Air 01/15/24 09:52 BMI result Body Mass Index 34.4 Tobacco/Smoking Status: Tobacco use Status Tobacco use date assessed 01/15/24 01/15/24 09:57 Patient Tobacco Use Status Former Tobacco user 01/15/24 09:55 e-Cigarette/Vaping Use Never Used 01/15/24 09:55 PHQ-9: PHQ-9 Score PHQ-9: Total score 0 01/15/24 09:55 Depression Screening Interpretation: Negative Thrive Assessment: Date of Thrive Assessment Date Thrive assessed 01/15/24 01/15/24 09:55 Currently or been in a relationship where the following occur: I choose not to answer Const General: no acute distress and alert Orientation/consciousness: patient oriented x3 HENMT Ears: external ears normal General nose exam: Normal external nose present and No nasal discharge present Mouth: Normal oral and palatal mucosa present and moist mucous membranes Eyes General: appearance normal, both eyes and all related structures Conjunctivae: conjunctivae normal Sclerae: sclerae normal Pupils: Equal, round and reactive pupils present EOM: EOMs intact bilaterally Neck Neck: Yes full ROM, Yes no lymphadenopathy and Yes supple Resp Effort & Inspection: normal respiratory effort and able to speak in complete sentences Auscultation: clear to auscultation bilaterally Cardio Rate: regular rate Rhythm: regular rhythm Heart sounds: S1 normal heart sound present and S2 normal heart sound present GI Palpation (GI): Soft to palpation, nontender and no masses Auscultation: normal bowel sounds Back/Spine/Pelvis Back: No back tenderness Neuro General: patient oriented x3, gait normal, tone normal, moves all extremities, Normal light touch and pain sensation and no focal motor deficits Cranial nerves: Yes CN's II-XII intact bilaterally and Yes Equal, round and reactive pupils present Cognition (Neuro): normal cognition Speech: No Abnormal speech present Extrem Other: Slight tenderness and swelling over lateral aspect of right elbow, with pain on pronation against resistance General: Yes no clubbing, cyanosis or edema and Yes no calf tenderness Psych Appearance: grossly normal and well kempt Mental Status: mental status grossly normal Speech and movement: Normal speech and movement present Affect: normal affect Attitude: cooperative Thought process: Normal thought process present Results Reviewed Results Reviewed: Laboratory Tests 01/13/24 07:04 Estimat Average Glucose 117 Hemoglobin A1c % 5.7 Name: Mert Gonzalez Age/Sex: 73/M : 1950 Unit#: [id number] Attend Dr: Dotty Savage MD Re01/13/24 Status: DEP REF Location: [facility] Disch: SPEC : [id number] SAMMIE: 01/13/24 STATUS: COMP REQ : [id number] RECD: 01/13/[address]: Dotty Savage MD COMP: 01/13/24 ENTERED: 01/13/[address]: ORDERED: Met Prof Fast, AST, ALT, Lipid Panel Test Result Flag Reference Sodium 143 135-145 mmol/L Potassium 3.9 3.3-5.1 mmol/L CL 109 H 96-108 mmol/L CO2 27 22-29 mmol/L Gap 11 L 12-20 BUN 17 H 9-16 mg/dL Creat 0.80 0.5-1.4 mg/dL EGFR > 60 NOTE: For -Prydeinig individuals, multiply the result by 1.210. Chronic Kidney Disease: Estimated GFR < 60 mL/min/1.73m2 Severe Kidney Disease: Estimated GFR < 15 mL/min/1.73m2 FBS 114 H 60-99 mg/dL A fasting glucose from 100-125 mg/dl is considered impaired (pre-diabetes). CA 9.2 8.4-10.2 mg/dL AST (GOT) 26 5-37 U/L ALT (GPT) 26 0-40 U/L Triglyceride 77 <150 mg/dL Desirable Triglyceride: less than 150 mg/dL Borderline High Triglyceride 150-199 mg/dL High Triglyceride: 200-499 mg/dL Very High Triglyceride: greater than or equal to 5OO mg/dL Cholesterol 188 <200 mg/dL Desirable Cholesterol: less than 200 mg/dL Borderline High Cholesterol: 200-239 mg/dL High Cholesterol: greater than 239 mg/dL LDL Calculated 95 <100 mg/dL Desirable LDL: less than 100 mg/dL Near Optimal/Above Optimal LDL: 110-129 mg/dL Borderline High LDL: 130-159 mg/dL High LDL: 160-189 mg/dL Very High LDL: greater than or equal to 190 mg/dL HDL 78 >40 mg/dL Desirable HDL: greater than 40 mg/dL Note: This HDL assay may give artificially low results in patients with liver disease. Assessment and Plan Assessment & Plan (1) Right lateral epicondylitis: Code(s): M77.11 - Lateral epicondylitis, right elbow Plan: Advised to continue taking Tylenol arthritis 650 mg 1 tablet once or twice a day as needed for pain, resting of joint for at least 1-2 weeks. May try massaging diclofenac gel 1% to affected joint 4 times a day as needed. (2) Essential hypertension: Code(s): I10 - Essential (primary) hypertension Plan: Blood pressure at goal of less than 130/80. Continue with current medication. Reinforced importance of following a low sodium diet, getting regular exercise, and lowering stress levels. (3) Impaired fasting glucose: Code(s): R73.01 - Impaired fasting glucose Plan: Your previous fasting blood sugars were elevated above 100 mg/dL. Impaired glucose metabolism increases the risk for developing diabetes mellitus type 2, as well as heart attack and stroke later on. Lifestyle changes that promotes weight loss, healthy eating habits, and regular exercise are important, and can prevent the progression to diabetes (4) Dyslipidemia: Code(s): E78.5 - Hyperlipidemia, unspecified Plan: Fasting lipids are within normal limits continue with adherence to healthy eating habits and regular exercise. Coding Level of Care Code Est Pt Level 4 (89147) Complex EM visit Add On G2211 Diagnoses Right lateral epicondylitis M77.11 Essential hypertension I10 Impaired fasting glucose R73.01 Dyslipidemia E78.5 Additional Codes DAYRON-7 Assessment Billing - DAYRON-7 Assessment Tool: DAYRON-7 Assessment 51214 ([id number])
== END 2024-01-15 13:06 | disposition home or self-care (01) ==
PROVIDERS: PCP Internal Medicine; Visit Provider Internal Medicine
DX: M77.11 Lateral epicondylitis, right elbow (principal); I10 Essential (primary) hypertension; R73.01 Impaired fasting glucose; E78.5 Hyperlipidemia, unspecified

== ENCOUNTER → 2024-01-15 09:30 | Outpatient (BNVA) | payer MEDICARE, SELFPAY | PROVIDERS: PCP Internal Medicine; Visit Provider Internal Medicine | DX: M77.11 Lateral epicondylitis, right elbow (principal); I10 Essential (primary) hypertension; R73.01 Impaired fasting glucose; E78.5 Hyperlipidemia, unspecified | CPT/HCPCS: 96127; 99212 ==

== ENCOUNTER → 2024-04-05 23:59 | Outpatient (BNV) | payer MEDICARE, SELFPAY ==
--- NOTE | 2024-04-06 19:15 | A.OFFVIS_ITS ---
Intake Visit Reasons: Remote device check- Medtronic Allergies hydrocodone [From Vicodin] Adverse Reaction (Unknown, Verified 01/15/24 10:17) agitation [facility] Medical History (Updated 04/06/24 @ 19:18 by Brendan Santiago MD) Right lateral epicondylitis Bradycardia Obesity (BMI 30.0-34.9) History of complete heart block Obstructive sleep apnea Complete heart block Hx of syncope Right bundle branch block (RBBB) Essential hypertension Tubular adenoma of colon Increased BMI Intolerance to BiPAP/CPAP Essential hypertension Impaired fasting glucose Dyslipidemia Surgical History Status post cardiac pacemaker procedure History of permanent cardiac pacemaker placement S/P placement of cardiac pacemaker H/O colonoscopy History of excision of pilonidal cyst Family History Father HTN (hypertension) Borderline diabetes mellitus Function kidney decreased Mother HTN (hypertension) Breast cancer Brother No problems noted. Brother No problems noted. Social History Housing: House Are you a primary health careers instructor to a significant other at home: No Do you presently have visiting nurse or other home services: No Alcohol intake: current Alcohol intake frequency: a few times a month Alcohol type: wine Patient Tobacco Use Status: Former Tobacco user Years Smoked: 40 yrs e-Cigarette/Vaping Use: Never Used Second Hand Smoke Exposure: No service: No Current occupational status: retired Cognitive needs: No Hearing needs: No Vision needs: Yes Office Procedures Cardiac Device Check Cardiac Device Check Details: Date of service- 04/05/2024 ; Battery life >11 years; normal lead parameters; AP 85%; PLATER PRODUCTION <0.1%; brief NSVT- some of this could also be supraventricular. Overall normal device function. [id number] Cardiac Device Interrogation, pacemaker Procedure code (CPT) selection complete Assessment & Plan Assessment & Plan (1) Pacemaker: Code(s): Z95.0 - Presence of cardiac pacemaker Category: Medical (2) Heart block: Code(s): I45.9 - Conduction disorder, unspecified Category: Medical Plan X Coding Level of Care Code Procedure Only Diagnoses Pacemaker Z95.0 Heart block I45.9 CPT Codes Cardiac Device Check - Cardiac Device 12: [id number] Cardiac Device Interrogation, pacemaker ([id number])
== END ==
PROVIDERS: PCP Internal Medicine; Visit Provider Internal Medicine
DX: I45.9 Conduction disorder, unspecified (principal); Z95.0 Presence of cardiac pacemaker
CPT/HCPCS: 93294

== ENCOUNTER 2024-05-31 12:18 | Outpatient (AMB) | payer MEDICARE, SELFPAY ==
[2024-05-31 12:37] VITALS: BP 132/68; PULSE 69; BMI 36.3
--- NOTE | 2024-05-31 12:37 | MHC.OFFVIS ---
Vital Signs 05/31/24 12:37 Height 5 ft 6 in Weight 224 lb 13.944 oz BMI 36.3 BP 132/68 Blood Pressure Location Lt brachial Position Sitting Pulse 69 Pulse Source Monitor Intake Visit Reasons: 1 yr w/ medtronic ck Allergies hydrocodone [From Vicodin] Adverse Reaction (Unknown, Verified 01/15/24 10:17) agitation Medication List - Last Reconciled 05/31/24 by Brendan Santiago MD acetaminophen ER (Tylenol Arthritis Pain) 650 mg PO Q12H diphenhydramine HCl (Benadryl) 25 mg PO DAILY PRN doxycycline hyclate 20 mg PO BID lisinopril 10 mg (2 x 5 mg) PO DAILY multivitamin 1 tab PO DAILY simethicone (Gas Relief (simethicone)) 80 mg PO BID-QID PRN HPI Comments Details: Mert returns for follow-up. In the past, had syncopal episode that led to diagnosis of third-degree heart block leading to pacemaker implantation. Has obesity, hypertension, untreated sleep apnea. He states that, when it is cold and he is walking outside, he can feel a cold sensation in the chest. However, not clear if it is angina as he states he can keep walking, and over time it just gets better and he is back to his normal. [facility] Medical History (Updated 04/06/24 @ 19:18 by Brendan Santiago MD) Right lateral epicondylitis Bradycardia Obesity (BMI 30.0-34.9) History of complete heart block Obstructive sleep apnea Complete heart block Hx of syncope Right bundle branch block (RBBB) Essential hypertension Tubular adenoma of colon Increased BMI Intolerance to BiPAP/CPAP Essential hypertension Impaired fasting glucose Dyslipidemia Surgical History Status post cardiac pacemaker procedure History of permanent cardiac pacemaker placement S/P placement of cardiac pacemaker H/O colonoscopy History of excision of pilonidal cyst Family History Father HTN (hypertension) Borderline diabetes mellitus Function kidney decreased Mother HTN (hypertension) Breast cancer Brother No problems noted. Brother No problems noted. Social History Housing: House Are you a primary childcare worker to a significant other at home: No Do you presently have visiting nurse or other home services: No Alcohol intake: current Alcohol intake frequency: a few times a month Alcohol type: wine Patient Tobacco Use Status: Former Tobacco user Years Smoked: 40 yrs e-Cigarette/Vaping Use: Never Used Second Hand Smoke Exposure: No service: No Current occupational status: retired Cognitive needs: No Hearing needs: No Vision needs: Yes Review of Systems Const Denies weakness ENT Denies dizziness Card Denies chest pain, Denies chest pain with activity, Denies syncope, Denies rapid heart rate, Denies pedal edema, Denies edema, Denies leg edema, Denies lightheadedness, Denies palpitations, Denies dyspnea, Denies dyspnea on exertion and Denies orthopnea Resp Denies cough, Denies dyspnea and Denies dyspnea on exertion GI Denies hematochezia and Denies change in stool character Musc Denies abnormal gait, Denies muscle cramps, Denies muscle weakness, Denies numbness, Denies radiating pain into limb and Denies tingling Neuro Denies abnormal gait, Denies dizziness, Denies syncope, Denies numbness, Denies tingling and Denies weakness Endo Denies palpitations Physical Exam Vital Signs: Last Vital Signs Pulse 69 05/31/24 12:37 BP 132/68 05/31/24 12:37 BMI result Body Mass Index 36.3 Const General: comfortable and no acute distress Orientation/consciousness: patient oriented x3 HEENT Other: Unremarkable Head: Yes normal to inspection Neck Neck: Yes normal visual inspection Chest Chest palpation & inspection: normal inspection of the chest Resp Auscultation: clear to auscultation bilaterally Cardio Palpation: normal PMI Heart sounds: S1 normal heart sound present, S2 normal heart sound present, no gallops, no murmurs and no rubs GI Palpation (GI): Soft to palpation Back/Spine/Pelvis Other: unremarkable Skin General skin exam: no rashes or lesions noted Neuro General: patient oriented x3 Extrem General: Yes normal to inspection Psych Mental Status: mental status grossly normal Office Procedures Cardiac Device Check Cardiac Device Check Details: Pacemaker interrogated today. Dual-chamber device, programmed [id number]. Battery status 10.9 years. Normal lead parameters. Atrial pacing 86%. Minimal ventricular pacing. Brief atrial tachycardia. NSVT, 2 seconds. Overall, normal device function. [id number] Cardiac Device Check, pacemaker dual lead Procedure code (CPT) selection complete EKG Details: EKG with atrial paced rhythm at 69/Min and right bundle-branch block pattern. [id number], Complete Assessment & Plan Assessment & Plan (1) Complete heart block: Code(s): I44.2 - Atrioventricular block, complete Category: Medical (2) Status post cardiac pacemaker procedure: Code(s): Z95.0 - Presence of cardiac pacemaker Category: Surgical (3) Essential hypertension: Code(s): I10 - Essential (primary) hypertension Category: Medical (4) Morbid obesity due to excess calories: Code(s): E66.01 - Morbid (severe) obesity due to excess calories Category: Medical (5) Obstructive sleep apnea: Code(s): G47.33 - Obstructive sleep apnea (adult) (pediatric) Category: Medical Plan Echocardiogram 2021 - LVEF 55-60%. Mild increase in RV size. Suspected aortic valve calcification. Ascending aortic size 3.7 cm. Repeat echocardiogram from [facility] that also shows LVEF of 55-60%. Otherwise unremarkable. Normal myocardial perfusion imaging from 2021. Overall, normal pacemaker function. Original indication was complete heart block, but do not see any clear ventricular pacing at all. He only has atrial pacing. With regard to blood pressure, seems stable on Lisinopril. For his obesity, should lose some weight. With regard to HERBERTH, not interested in CPAP and has been discussed in the past as well as today. With regard to symptoms of 'cold air' in his chest while walking in cold weather, not clear if it is angina or not. Repeat stress test. We will see him back in follow-up after the stress test. Advised him to avoid any strenuous physical activity in cold weather like shoveling extra. Orders: Orders CA lexiscan stress w cathy Today I20.9 - Angina pectoris, unspecified NM cardiolite stress test Today R07.2 - Precordial pain Coding Level of Care Code Est Pt Level 4 (36217) Diagnoses Complete heart block I44.2 Status post cardiac pacemaker procedure Z95.0 Essential hypertension I10 Morbid obesity due to excess calories E66.01 Obstructive sleep apnea G47.33 CPT Codes Cardiac Device Check - Cardiac Device 2: [id number] Cardiac Device Check, pacemaker dual lead ([id number]) EKG - CPT: 34012-[id number], Complete ([id number])
== END 2024-05-31 13:03 | disposition home or self-care (01) ==
PROVIDERS: PCP Internal Medicine; Visit Provider Internal Medicine
DX: I44.2 Atrioventricular block, complete (principal); Z95.0 Presence of cardiac pacemaker; I10 Essential (primary) hypertension; E66.01 Morbid (severe) obesity due to excess calories; G47.33 Obstructive sleep apnea (adult) (pediatric)
CPT/HCPCS: 93010; 93280; 99214

== ENCOUNTER → 2024-05-31 12:18 | Outpatient (BNVA) | payer MEDICARE, SELFPAY | PROVIDERS: PCP Internal Medicine; Visit Provider Internal Medicine | DX: Z45.018 Encounter for adjustment and management of other part of cardiac pacemaker (principal); I44.2 Atrioventricular block, complete; I10 Essential (primary) hypertension; G47.33 Obstructive sleep apnea (adult) (pediatric); E66.01 Morbid (severe) obesity due to excess calories; Z68.36 Body mass index [BMI] 36.0-36.9, adult | CPT/HCPCS: 93005; 93280; 99212 ==

== ENCOUNTER → 2024-07-05 23:59 | Outpatient (BNV) | payer MEDICARE, SELFPAY ==
--- NOTE | 2024-07-12 08:48 | A.OFFVIS_ITS ---
Intake Visit Reasons: Remote device check- Medtr[employer] Allergies hydrocodone [From Vicodin] Adverse Reaction (Unknown, Verified 01/15/24 10:17) agitation [facility] Medical History (Updated 04/06/24 @ 19:18 by Brendan Santiago MD) Right lateral epicondylitis Bradycardia Obesity (BMI 30.0-34.9) History of complete heart block Obstructive sleep apnea Complete heart block Hx of syncope Right bundle branch block (RBBB) Essential hypertension Tubular adenoma of colon Increased BMI Intolerance to BiPAP/CPAP Essential hypertension Impaired fasting glucose Dyslipidemia Surgical History Status post cardiac pacemaker procedure History of permanent cardiac pacemaker placement S/P placement of cardiac pacemaker H/O colonoscopy History of excision of pilonidal cyst Family History Father HTN (hypertension) Borderline diabetes mellitus Function kidney decreased Mother HTN (hypertension) Breast cancer Brother No problems noted. Brother No problems noted. Social History Housing: House Are you a primary child caregiver private home to a significant other at home: No Do you presently have visiting nurse or other home services: No Alcohol intake: current Alcohol intake frequency: a few times a month Alcohol type: wine Patient Tobacco Use Status: Former Tobacco user Years Smoked: 40 yrs e-Cigarette/Vaping Use: Never Used Second Hand Smoke Exposure: No service: No Current occupational status: retired Cognitive needs: No Hearing needs: No Vision needs: Yes Office Procedures Cardiac Device Check Cardiac Device Check Details: Date of service- 07/05/2024 ; Battery life >10 years; normal lead parameters; AP 86%; PART TIME <0.1%; no significant arrhythmias. Overall normal device function. [id number] Cardiac Device Interrogation, pacemaker Procedure code (CPT) selection complete Assessment & Plan Assessment & Plan (1) Pacemaker: Code(s): Z95.0 - Presence of cardiac pacemaker Category: Medical (2) Heart block: Code(s): I45.9 - Conduction disorder, unspecified Category: Medical Plan x Coding Level of Care Code Procedure Only Diagnoses Pacemaker Z95.0 Heart block I45.9 CPT Codes Cardiac Device Check - Cardiac Device 12: [id number] Cardiac Device Interrogation, pacemaker ([id number])
== END ==
PROVIDERS: PCP Internal Medicine; Visit Provider Internal Medicine
DX: I45.9 Conduction disorder, unspecified (principal); Z95.0 Presence of cardiac pacemaker
CPT/HCPCS: 93294

== ENCOUNTER 2024-07-17 08:08 | Outpatient (REF) | payer MEDICARE, SELFPAY ==
[2024-07-17 12:04] LABS: Alanine Aminotransferase 33 U/L (0-40); Anion Gap 13 (12-20); Aspartate Amino Transferase 33 U/L (5-37); Blood Urea Nitrogen 15 mg/dL (9-16); Calcium 9.5 mg/dL (8.4-10.2); Carbon Dioxide 24 mmol/L (22-29); Chloride 110 mmol/L (96-108); Cholesterol 178 mg/dL (<200); Estimated Glomerular Filt Rate > 60; Glucose Fasting 108 mg/dL (60-99); HDL Cholesterol 53 mg/dL (>40); LDL Cholesterol Calculated 109 mg/dL (<100); Potassium 4.1 mmol/L (3.3-5.1); Sodium 143 mmol/L (135-145); Triglycerides 80 mg/dL (<150)
== END 2024-07-17 08:09 | disposition home or self-care (01) ==
LOC: HO.HMGCLDS 08:08
PROVIDERS: PCP Internal Medicine; Visit Provider Internal Medicine
DX: E78.5 Hyperlipidemia, unspecified (principal); R73.01 Impaired fasting glucose; I10 Essential (primary) hypertension; Z86.79 Personal history of other diseases of the circulatory system; E66.9 Obesity, unspecified; I45.9 Conduction disorder, unspecified; Z95.0 Presence of cardiac pacemaker
CPT/HCPCS: 36415; 80048; 80061; 84450; 84460

== ENCOUNTER 2024-07-20 11:21 | Outpatient (AMB) | payer MEDICARE, SELFPAY ==
[2024-07-20 11:47] VITALS: BP 92/62; PULSE 77; RESP 16; TEMP 36.6; O2SAT 97; BMI 34.9
--- NOTE | 2024-07-20 11:47 | MHC.PC.OV ---
Vital Signs 07/20/24 11:47 Height 5 ft 6 in Weight 216 lb BMI 34.9 BP 92/62 Blood Pressure Location Rt brachial Position Sitting Respiration 16 Pulse 77 Pulse Source Pulse Oximeter Temp 97.8 F Temp Source Oral Pulse Oximetry (%) 97 Oxygen Delivery Method Room Air Intake Visit Reasons: Annual visit Intake Note: Pt is here today for his PE: Last colonoscopy 08/15/20 Allergies hydrocodone [From Vicodin] Adverse Reaction (Unknown, Verified 07/20/24 12:32) agitation Medication List - Last Reconciled 07/20/24 by Dotty Savage MD acetaminophen ER (Tylenol Arthritis Pain) 650 mg PO Q12H diphenhydramine HCl (Benadryl) 25 mg PO DAILY PRN doxycycline hyclate 20 mg PO BID lisinopril 10 mg (2 x 5 mg) PO DAILY multivitamin 1 tab PO DAILY simethicone (Gas Relief (simethicone)) 80 mg PO BID-QID PRN Tobacco use date assessed: 07/20/24 Fall risk assessment: No Falls in past year Last assessed Fall Risk: 07/20/24 Dental Screening Dental Screen Date: 07/20/24 Did you have a dental visit in the last 12 months?: Yes Did you have a dental problem in the last 6 months where you did not have access to dental care?: No Was dental information given to patient?: Patient has dentist HPI Annual visit HPI Details 73-year-old male with history of hypertension, obesity, history of complete heart block with pacemaker placed, obstructive sleep apnea but intolerant of CPAP, prediabetes, and dyslipidemia, here today for physical exam . He has been compliant with taking his medications and has been adhering to recommended diet, exercises regularly. He is up-to-date with his screening colonoscopy, done in 2020 with tubular adenoma removed, due again in 2025. Recent fasting labs showed normal electrolytes with renal function, fasting glucose in the prediabetic range and normal lipid levels. He has been feeling well, with no complaints at present time. [facility] Medical History Right lateral epicondylitis Bradycardia Obesity (BMI 30.0-34.9) History of complete heart block Obstructive sleep apnea Complete heart block Hx of syncope Right bundle branch block (RBBB) Essential hypertension Tubular adenoma of colon Increased BMI Intolerance to BiPAP/CPAP Essential hypertension Impaired fasting glucose Dyslipidemia Surgical History Status post cardiac pacemaker procedure History of permanent cardiac pacemaker placement S/P placement of cardiac pacemaker H/O colonoscopy History of excision of pilonidal cyst Family History Father HTN (hypertension) Borderline diabetes mellitus Function kidney decreased Mother HTN (hypertension) Breast cancer Brother No problems noted. Brother No problems noted. Social History Housing: House Are you a primary customer care representative to a significant other at home: No Do you presently have visiting nurse or other home services: No Alcohol intake: current Alcohol intake frequency: a few times a month Alcohol type: wine Patient Tobacco Use Status: Former Tobacco user Years Smoked: 40 yrs e-Cigarette/Vaping Use: Never Used Second Hand Smoke Exposure: No service: No Current occupational status: retired Cognitive needs: No Hearing needs: No Vision needs: Yes Questionnaire PHQ-9 Over the last 2 weeks, how often have you been bothered by any of the following problems? 1. Little interest or pleasure in doing things: not at all 2. Feeling down, depressed, or hopeless: not at all 3. Trouble falling or staying asleep, or sleeping too much: several days 4. Feeling tired or having little energy: several days 5. Poor appetite or overeating: not at all 6. Feeling bad about yourself - or that you are a failure or have let yourself or your family down: not at all 7. Trouble concentrating on things, such as reading the newspaper or watching television: not at all 8. Moving or speaking so slowly that other people could have noticed. Or the opposite - being so fidgety or restless that you have been moving around a lot more than usual: not at all 9. Thoughts that you would be better off or of hurting yourself in some way: not at all Total score: 2 Depression Screening Interpretation: Negative Depression Screening Done: Yes Source: Developed by Drs. Nathen Sheffield, Rebecca Brown, Linwood Raphael and colleagues, with an educational luis antonio from [employer]. Thrive Questionnaire Date Thrive assessed: 07/20/24 I am a: Patient What is your living situation today?: I have a steady place to live Within the past 12 months, did the food you bought not last and you didn't have the money to get more?: Never true Within the past 12 months, did you worry whether your food would run out before you got money to buy more?: Never true Do you have trouble paying for medicines?: No Do you have trouble getting transportation to medical appointments?: No Do you have trouble paying your heating and electricity bill?: No Do you have trouble taking care of your child, family member or friend?: No Do you have trouble with day-to-day activities such as bathing, preparing meals, shopping, managing finances, etc.?: No Are you currently unemployed and looking for a job?: No Are you interested in more education?: No Please select the resources that you would like help with: None Currently or been in a relationship where the following occur: No concerns reported THRIVE Score: 0 AUDIT C Alcohol Use Questionnaire (AUDIT-C) 1. How often do you have a drink containing alcohol?: Never Total Score: 0 DAYRON-7 AMB Questionnaire DAYRON-7 Date DAYRON - 7 assessed: 07/20/24 Feeling nervous, anxious, or on edge: 1 = Several days Not being able to stop or control worryin = Not at all Worrying too much about different things: 1 = Several days Trouble relaxin = Several days Being so restless that it is hard to sit still: 0 = Not at all Becoming easily annoyed or irritable: 1 = Several days Feeling afraid as if something awful might happen: 0 = Not at all Total DAYRON-7 score (0-4 normal; 5-9 mild; 10-14 moderate; 15-21 severe): 4 Source: Developed by Drs. Nathen Sheffield, Rebecca Brown, Linwood Raphael and colleagues, with an educational luis antonio from [employer]. DAYRON-7 Assessment Billing DAYRON-7 Assessment Tool: DAYRON-7 Assessment 82463 Review of Systems Const Denies weakness Eyes Reports no additional complaints ENT Denies dizziness Card Denies chest pain, Denies chest pain with activity, Denies syncope, Denies rapid heart rate, Denies pedal edema, Denies edema, Denies leg edema, Denies lightheadedness, Denies palpitations, Denies dyspnea, Denies dyspnea on exertion and Denies orthopnea Resp Denies cough, Denies dyspnea and Denies dyspnea on exertion GI Denies hematochezia and Denies change in stool character Reports no additional complaints Musc Denies abnormal gait, Denies muscle cramps, Denies muscle weakness, Denies numbness, Denies radiating pain into limb and Denies tingling Skin/Breast Denies rash Neuro Denies Abnormal speech present, Denies abnormal gait, Denies dizziness, Denies syncope, Denies numbness, Denies tingling and Denies weakness Psych Reports no additional complaints Endo Denies palpitations Romeo/Lymph Reports no additional complaints Aller/Immun Reports no additional complaints Physical exam (Primary Care) Vital Signs: Last Vital Signs Temp 97.8 F 07/20/24 11:47 Pulse 77 07/20/24 11:47 Resp 16 07/20/24 11:47 BP 92/62 07/20/24 11:47 Pulse Ox 97 07/20/24 11:47 Oxygen Delivery Method Room Air 07/20/24 11:47 BMI result Body Mass Index 34.9 Tobacco/Smoking Status: Tobacco use Status Tobacco use date assessed 07/20/24 07/20/24 11:49 Patient Tobacco Use Status Former Tobacco user 07/20/24 11:49 e-Cigarette/Vaping Use Never Used 07/20/24 11:49 PHQ-9: PHQ-9 Score PHQ-9: Total score 2 07/20/24 12:33 Depression Screening Interpretation: Negative Thrive Assessment: Date of Thrive Assessment Date Thrive assessed 07/20/24 07/20/24 12:24 Currently or been in a relationship where the following occur: No concerns reported Advance Care Planning discussion: Completed/Scanned Date of discussion: 07/20/24 Who was present: Patient Forms completed: Health Care Proxy and MOLST Time spent: 16-45 minutes Actual minutes spent: 3 Const General: no acute distress and alert Orientation/consciousness: patient oriented x3 HENMT Ears: external ears normal General nose exam: Normal external nose present and No nasal discharge present Mouth: Normal oral and palatal mucosa present and moist mucous membranes Eyes General: appearance normal, both eyes and all related structures Conjunctivae: conjunctivae normal Sclerae: sclerae normal Pupils: Equal, round and reactive pupils present EOM: EOMs intact bilaterally Neck Neck: Yes full ROM, Yes no lymphadenopathy and Yes supple Resp Effort & Inspection: normal respiratory effort and able to speak in complete sentences Auscultation: clear to auscultation bilaterally Cardio Rate: regular rate Rhythm: regular rhythm Heart sounds: S1 normal heart sound present and S2 normal heart sound present GI Palpation (GI): Soft to palpation, nontender and no masses Auscultation: normal bowel sounds General: Yes no CVA tenderness Male General Exam: Yes normal external exam Back/Spine/Pelvis Back: no CVA tenderness and No back tenderness Skin General skin exam: no rashes or lesions noted Neuro General: patient oriented x3, gait normal, tone normal, moves all extremities, Normal light touch and pain sensation and no focal motor deficits Cranial nerves: Yes CN's II-XII intact bilaterally and Yes Equal, round and reactive pupils present Cognition (Neuro): normal cognition Speech: No Abnormal speech present Extrem General: Yes no clubbing, cyanosis or edema and Yes no calf tenderness Psych Appearance: grossly normal and well kempt Mental Status: mental status grossly normal Speech and movement: Normal speech and movement present Affect: normal affect Attitude: cooperative Thought process: Normal thought process present Results Reviewed Results Reviewed: Name: Mert Gonzalez Age/Sex: 73/M : 1950 Unit#: [id number] Attend Dr: Dotty Savage MD Re07/17/24 Status: DEP REF Location: [facility] Disch: SPEC : [id number] SAMMIE: 07/17/24 STATUS: COMP REQ : [id number] RECD: 07/17/[address]: Dotty Savage MD COMP: 07/17/24 ENTERED: 07/17/[address]: ORDERED: Met Prof Fast, AST, ALT, Lipid Panel Test Result Flag Reference Sodium 143 135-145 mmol/L Potassium 4.1 3.3-5.1 mmol/L CL 110 H 96-108 mmol/L CO2 24 22-29 mmol/L Gap 13 12-20 BUN 15 9-16 mg/dL Creat 0.78 0.5-1.4 mg/dL eGFR > 60 Chronic Kidney Disease: Estimated GFR < 60 mL/min/1.73m2 Severe Kidney Disease: Estimated GFR < 15 mL/min/1.73m2 FBS 108 H 60-99 mg/dL A fasting glucose from 100-125 mg/dl is considered impaired (pre-diabetes). CA 9.5 8.4-10.2 mg/dL AST (GOT) 33 5-37 U/L ALT (GPT) 33 0-40 U/L Triglyceride 80 <150 mg/dL Desirable Triglyceride: less than 150 mg/dL Borderline High Triglyceride 150-199 mg/dL High Triglyceride: 200-499 mg/dL Very High Triglyceride: greater than or equal to 5OO mg/dL Cholesterol 178 <200 mg/dL Desirable Cholesterol: less than 200 mg/dL Borderline High Cholesterol: 200-239 mg/dL High Cholesterol: greater than 239 mg/dL LDL Calculated 109 H <100 mg/dL Desirable LDL: less than 100 mg/dL Near Optimal/Above Optimal LDL: 110-129 mg/dL Borderline High LDL: 130-159 mg/dL High LDL: 160-189 mg/dL Very High LDL: greater than or equal to 190 mg/dL HDL 53 >40 mg/dL Desirable HDL: greater than 40 mg/dL Note: This HDL assay may give artificially low results in patients with liver disease. Coding Level of Care Code Est Pt Prev Care >65y(39644) Diagnoses Annual visit for general adult medical examination with abnormal findings Z00.01 Essential hypertension I10 Impaired fasting glucose R73.01 Dyslipidemia E78.5 History of complete heart block Z86.79 Obstructive sleep apnea G47.33 Advanced directives, counseling/discussion Z71.89 Additional Codes DAYRON-7 Assessment Billing - DAYRON-7 Assessment Tool: DAYRON-7 Assessment 00718 ([id number]) Vital Signs *Quality* - Advance Care Planning discussion: Completed/Scanned ([id number]) Vital Signs *Quality* - Time spent: 16-45 minutes ([id number]) Assessment & Plan Assessment & Plan (1) Annual visit for general adult medical examination with abnormal findings: Code(s): Z00.01 - Encounter for general adult medical examination with abnormal findings Plan: Reviewed recent fasting lab results patient. Continue regular dental visit every 6 months and regular eye exams, at least every 2 years. Take adequate calcium in diet and vitamin-D 3 at 2000 IU per cap once a day, in addition to weight-bearing exercises to help maintain good muscle tone and weight control. Instructed to do self-testicular exam to check for any mass. Up-to-date with his screening colonoscopy due again in 2026. Up-to-date with vaccines. (2) Essential hypertension: Code(s): I10 - Essential (primary) hypertension Category: Medical Plan: Blood pressure at goal of less than 130/80. Continue with current medication. Reinforced importance of following a low sodium diet, getting regular exercise, and lowering stress levels. (3) Impaired fasting glucose: Code(s): R73.01 - Impaired fasting glucose Category: Medical Plan: Impaired glucose metabolism increases the risk for developing diabetes mellitus type 2, as well as heart attack and stroke later on. Lifestyle changes that promotes weight loss, healthy eating habits, and regular exercise are important, and can prevent the progression to diabetes (4) Dyslipidemia: Code(s): E78.5 - Hyperlipidemia, unspecified Category: Medical Plan: Reviewed recent fasting lipid profile with patient with levels within normal limits . Continue adherence to low-cholesterol diet and regular exercise, at least 30 minutes 3 to 4 times a week. Advised patient to make healthy food choices, eat more fruits, vegetables, whole grains, wild caught fish and low-fat dairy. Limit amount of meat and fried or fatty food products, as well as processed foods and fast foods. Follow-up scheduled with repeat fasting lipid panel in 6 months. (5) History of complete heart block: Code(s): Z86.79 - Personal history of other diseases of the circulatory system Category: Medical Plan: Has pacemaker in place (6) Obstructive sleep apnea: Code(s): G47.33 - Obstructive sleep apnea (adult) (pediatric) Category: Medical Plan: Unable to tolerate BiPAP CPAP, stressed importance of achieving recommended body weight (7) Advanced directives, counseling/discussion: Code(s): Z71.89 - Other specified counseling Plan: Initiated the conversation about Advanced Directives. Advanced Directives help patients prepare for current and future decisions about their medical treatment and place of care. Discussed with patient that it is a process where a patients current condition and prognosis are reviewed, their wishes for information regarding their illness are elicited, and likely medical dilemmas are presented and options discussed. Healthcare proxy form and MOLST form completed today. These forms can be amended as needed, reviewed yearly and make changes as needed Orders: Orders PSA,Total (Free>4and<10) 6 Months E78.5 - Hyperlipidemia, unspecified, I10 - Essential (primary) hypertension, R73.01 - Impaired fasting glucose, Z12.5 - Encounter for screening for malignant neoplasm of prostate Basic Metabolic Panel Fasting 6 Months E78.5 - Hyperlipidemia, unspecified, I10 - Essential (primary) hypertension, R73.01 - Impaired fasting glucose Lipid Panel 6 Months E78.5 - Hyperlipidemia, unspecified, I10 - Essential (primary) hypertension, R73.01 - Impaired fasting glucose Alanine Aminotransferase 6 Months E78.5 - Hyperlipidemia, unspecified, I10 - Essential (primary) hypertension, R73.01 - Impaired fasting glucose Aspartate Amino Transferase 6 Months E78.5 - Hyperlipidemia, unspecified, I10 - Essential (primary) hypertension, R73.01 - Impaired fasting glucose Hemoglobin A1c 6 Months E78.5 - Hyperlipidemia, unspecified, I10 - Essential (primary) hypertension, R73.01 - Impaired fasting glucose Vitamin D 25-OH Total 6 Months E78.5 - Hyperlipidemia, unspecified, I10 - Essential (primary) hypertension, R73.01 - Impaired fasting glucose
--- OUTSIDE RECORDS SUMMARY | 2024-07-20 13:51 | XMS_ITS | Patient Health Record ---
Author Organization [facility] Address [address] [place] [id number] Care Team Providers Care Electronic Scanner Operator Name Role Phone Janette AMBRIZ, Dotty Primary Care Provider Bob Gonzalez Jr Unavailable [phone] Allergies Allergen (clinical drug ingredient) Drug/Non Drug Allergy documented on EMR Reaction Allergy Type Onset Date Status Vicodin Unknown Drug Allergy Active Reason For Referral No Information Medications Medication SIG (Take, Route, Frequency, Duration) Notes Start Date End Date Status MiraLax (colon prep) 8.3 ounce ((238) grams mixed with Gatorade or Crystal Light orally begin at 5:00 p.m. the day before the procedure for 1 day 04/07/2020 Active Dicyclomine HCl 20 MG TAKE 1 TABLET BY M OUTH 3 TIMES A DAY BEFORE MEALS Oral for 90 Active Tylenol 1 tab Oral prn Activ e Multi Vitamin/Minerals 1 1 Orally qd Active Immunizations Vaccine Route Administration Date Status Comme nts Influenza Unknown 04/07/2020 Administered Social History Tobacco Use: Social History Observation Description Date Details (start date - stop date) Former Smoker NA - NA Tobacco Use/Smoking Question Answer Notes Patient is a former smoker When did you stop smoking? 2013 How long has it been since you last smoked? 5-10 years Alcohol Screen Question Answer Notes Did you have a drink contain ing alcohol in the past year? Yes How often did you have a dri nk containing alcohol in the past year? 4 or more times a week (4 points) How many drinks did you have on a typical day when you were drinking in the past year? 3 or 4 drinks (1 point) How often did you have 6 or more drinks on one occasion in the past year? Never (0 point) Points 5 Interpretation Positive Problems Problem Type SNOMED Code ICD Code Onset Dates Problem Status W/U Status Risk Notes Problem 356250999 Colon cancer screening (Z12.11) Active confirmed Problem 626699107 Irritable bowel syndrome with diarrhea (K58.0) Active confirmed Problem 935727638 shelter current use of non-steroidal anti-inflammato rama (NSAID) (Z79.1) Active confirmed Plan Of Treatment Future Test Test Name Order Date COLONOSCOPY 01/20/2015 COLONOSCOPY 04/07/2020 Insurance Providers Payer Name Payer Address Payer Phone Subscriber Number Group Number Insured Name Patient Relationship to Insured Coverage Start Date Coverage End Date [facility] [address] [place], [place] [id number] [phone] [id number] BRITT HUITRON Self - patient is the insured Medical (General) History Medical History History ICD Code colonoscopy 04/26/15, tubular adenoma irritable bowel syndrome impaired fasting glucose hyperlipidemia Surgical History Surgery Date(Month/Year) pilonidal cyst excision
== END 2024-07-20 12:54 | disposition home or self-care (01) ==
LOC: HO.HMCC 11:22
PROVIDERS: PCP Internal Medicine; Visit Provider Internal Medicine
DX: Z00.01 Encounter for general adult medical examination with abnormal findings (principal); I10 Essential (primary) hypertension; R73.01 Impaired fasting glucose; E78.5 Hyperlipidemia, unspecified; Z86.79 Personal history of other diseases of the circulatory system; G47.33 Obstructive sleep apnea (adult) (pediatric); Z71.89 Other specified counseling; Z00.00 Encounter for general adult medical examination without abnormal findings

== ENCOUNTER → 2024-07-20 11:21 | Outpatient (BNVA) | payer MEDICARE, SELFPAY | PROVIDERS: PCP Internal Medicine; Visit Provider Internal Medicine | DX: Z00.01 Encounter for general adult medical examination with abnormal findings (principal); I10 Essential (primary) hypertension; R73.01 Impaired fasting glucose; E78.5 Hyperlipidemia, unspecified; G47.33 Obstructive sleep apnea (adult) (pediatric); Z86.79 Personal history of other diseases of the circulatory system; Z71.89 Other specified counseling | CPT/HCPCS: 96127; 99397; 99497 ==

== ENCOUNTER → 2024-10-03 23:59 | Outpatient (BNV) | payer MEDICARE, SELFPAY ==
--- NOTE | 2024-10-10 09:50 | A.OFFVIS_ITS ---
Intake Visit Reasons: Remote device check- Medtr[employer] Allergies hydrocodone (From Vicodin) Adverse Reaction (Unknown, Verified 07/20/24 12:32) agitation [facility] Medical History Right lateral epicondylitis Bradycardia Obesity (BMI 30.0-34.9) History of complete heart block Obstructive sleep apnea Complete heart block Hx of syncope Right bundle branch block (RBBB) Essential hypertension Tubular adenoma of colon Increased BMI Intolerance to BiPAP/CPAP Essential hypertension Impaired fasting glucose Dyslipidemia Surgical History Status post cardiac pacemaker procedure History of permanent cardiac pacemaker placement S/P placement of cardiac pacemaker H/O colonoscopy History of excision of pilonidal cyst Family History Father HTN (hypertension) Borderline diabetes mellitus Function kidney decreased Mother HTN (hypertension) Breast cancer Brother No problems noted. Brother No problems noted. Social History Housing: House Are you a primary professional healthcare representative to a significant other at home: No Do you presently have visiting nurse or other home services: No Alcohol intake: current Alcohol intake frequency: a few times a month Alcohol type: wine Patient Tobacco Use Status: Former Tobacco user Years Smoked: 40 yrs e-Cigarette/Vaping Use: Never Used Second Hand Smoke Exposure: No service: No Current occupational status: retired Cognitive needs: No Hearing needs: No Vision needs: Yes Office Procedures Cardiac Device Check Cardiac Device Check Details: Date of service- 10/03/2024 ; Battery life >10 years; normal lead parameters; AP 86%; CONTRACTS MANAGER <0.1%; transient NSVT, but otherwise no significant arrhythmias. Overall normal device function. [id number] Cardiac Device Interrogation, pacemaker Procedure code (CPT) selection complete Assessment & Plan Assessment & Plan (1) Pacemaker: Code(s): Z95.0 - Presence of cardiac pacemaker Category: Medical (2) History of complete heart block: Code(s): Z86.79 - Personal history of other diseases of the circulatory system Category: Medical Plan x Coding Level of Care Code Procedure Only Diagnoses Pacemaker Z95.0 History of complete heart block Z86.79 CPT Codes Cardiac Device Check - Cardiac Device 12: [id number] Cardiac Device Interrogation, pacemaker ([id number])
== END ==
PROVIDERS: PCP Internal Medicine; Visit Provider Internal Medicine
DX: I44.2 Atrioventricular block, complete (principal); Z95.0 Presence of cardiac pacemaker
CPT/HCPCS: 93294

== ENCOUNTER → 2024-11-26 09:01 | Outpatient (BNVA) | payer MEDICARE, SELFPAY | PROVIDERS: PCP Internal Medicine | DX: R03.1 Nonspecific low blood-pressure reading (principal) | CPT/HCPCS: 99211 ==

== ENCOUNTER → 2025-01-02 23:59 | Outpatient (BNV) | payer MEDICARE, SELFPAY ==
--- NOTE | 2025-01-09 14:27 | MHC.OFFVIS ---
Intake Visit Reasons: Remote device check- Medtr[employer] Allergies hydrocodone (From Vicodin) Adverse Reaction (Unknown, Verified 07/20/24 12:32) agitation [facility] Medical History Right lateral epicondylitis Bradycardia Obesity (BMI 30.0-34.9) History of complete heart block Obstructive sleep apnea Complete heart block Hx of syncope Right bundle branch block (RBBB) Essential hypertension Tubular adenoma of colon Increased BMI Intolerance to BiPAP/CPAP Essential hypertension Impaired fasting glucose Dyslipidemia Surgical History Status post cardiac pacemaker procedure History of permanent cardiac pacemaker placement S/P placement of cardiac pacemaker H/O colonoscopy History of excision of pilonidal cyst Family History Father HTN (hypertension) Borderline diabetes mellitus Function kidney decreased Mother HTN (hypertension) Breast cancer Brother No problems noted. Brother No problems noted. Social History Housing: House Are you a primary care management associate to a significant other at home: No Do you presently have visiting nurse or other home services: No Alcohol intake: current Alcohol intake frequency: a few times a month Alcohol type: wine Patient Tobacco Use Status: Former Tobacco user Years Smoked: 40 yrs e-Cigarette/Vaping Use: Never Used Second Hand Smoke Exposure: No service: No Current occupational status: retired Cognitive needs: No Hearing needs: No Vision needs: Yes Office Procedures Cardiac Device Check Cardiac Device Check Details: Date of service- 01/02/2025 ; Battery life >10 years; normal lead parameters; AP 89%; MENAGERIE CARETAKER <0.1%; no significant arrhythmias. Overall normal device function. [id number] Cardiac Device Interrogation, pacemaker Procedure code (CPT) selection complete Assessment & Plan Assessment & Plan (1) Pacemaker: Code(s): Z95.0 - Presence of cardiac pacemaker Category: Medical (2) History of complete heart block: Code(s): Z86.79 - Personal history of other diseases of the circulatory system Category: Medical Plan x Coding Level of Care Code Procedure Only Diagnoses Pacemaker Z95.0 History of complete heart block Z86.79 CPT Codes Cardiac Device Check - Cardiac Device 12: [id number] Cardiac Device Interrogation, pacemaker ([id number])
== END ==
PROVIDERS: PCP Internal Medicine; Visit Provider Internal Medicine
DX: I44.2 Atrioventricular block, complete (principal); Z95.0 Presence of cardiac pacemaker; Z86.79 Personal history of other diseases of the circulatory system
CPT/HCPCS: 93294

== ENCOUNTER 2025-02-03 08:52 | Outpatient (REF) | payer MEDICARE, SELFPAY ==
--- OUTSIDE RECORDS SUMMARY | 2025-02-03 09:44 | XMS_ITS | Patient Health Record ---
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 the day before the procedure; Duration: 1 day 04/07/2020 Active Dicyclomine HCl 20 MG TAKE 1 TABLET BY M OUTH 3 TIMES A DAY BEFORE MEALS Oral; Duration: 90 Active Tylenol 1 tab Oral prn [...] Problem Status W/U Status Risk Notes Problem Colon cancer screening (822849492) Colon cancer screening (Z12.11) Active confirmed Problem Irritable bowel syndrome with diarrhea (792092643) Irritable bowel syndrome with diarrhea (K58.0) Active confirmed Problem snf current use of non-steroidal anti-inflammat ory drug ([id number] 03) director long term care current use of non-steroidal anti-inflammat ories (NSAID) (Z79.1) Active confirmed Plan Of Treatment Future Test Test Name Order Date COLONOSCOPY 01/20/2015 COLONOSCOPY 04/07/2020 Insurance Providers Payer Name Payer Address Payer Phone Subscriber Number Group Number Insured Name Patient Relationship to Insured Coverage Start Date Coverage End Date [facility] [address] [place], [place] [id number] BRITT HUITRON Self - patient is the insured Medical (General) History Medical History History ICD Code colonoscopy 04/26/15, tubular adenoma irritable bowel syndrome impaired fasting glucose hyperlipidemia Surgical History Surgery Date(Month/Year) pilonidal cyst excision
[2025-02-03 11:16] LABS: Alanine Aminotransferase 55 U/L (0-40); Anion Gap 13 (12-20); Aspartate Amino Transferase 48 U/L (5-37); Blood Urea Nitrogen 22 mg/dL (9-16); Calcium 9.5 mg/dL (8.4-10.2); Carbon Dioxide 28 mmol/L (22-29); Chloride 109 mmol/L (96-108); Cholesterol 204 mg/dL (<200); Estimated Glomerular Filt Rate > 60; HDL Cholesterol 100 mg/dL (>40); Potassium 4.5 mmol/L (3.3-5.1); Sodium 145 mmol/L (135-145); Triglycerides 77 mg/dL (<150)
[2025-02-03 14:20] LABS: PSA,Total (Free>4and<10) 1.21 ng/mL (0.00-4.00)
== END 2025-02-03 08:53 | disposition home or self-care (01) ==
LOC: HO.HMGCLDS 08:52
PROVIDERS: PCP Internal Medicine; Visit Provider Internal Medicine
DX: Z12.5 Encounter for screening for malignant neoplasm of prostate (principal); I10 Essential (primary) hypertension; R73.01 Impaired fasting glucose; E78.5 Hyperlipidemia, unspecified
CPT/HCPCS: 36415; 80048; 80061; 82306; 83036; 84153; 84450; 84460

== ENCOUNTER 2025-02-07 08:55 | Outpatient (AMB) | payer MEDICARE, SELFPAY ==
--- NOTE | 2025-02-07 08:59 | A.OFFPC_ITS ---
Vital Signs 02/07/25 09:00 Height 5 ft 6 in Weight 187 lb BMI 30.2 BP 98/64 Blood Pressure Location Rt brachial Position Sitting Respiration 16 Pulse 61 Pulse Source Pulse Oximeter Temp 97.9 F Temp Source Oral Pulse Oximetry (%) 97 Oxygen Delivery Method Room Air Intake Visit Reasons: 6 months f/up Intake Note: Pt is here today for her 6mo. f/u Allergies hydrocodone (From Vicodin) Adverse Reaction (Unknown, Verified 02/07/25 09:27) agitation Medication List - Last Reconciled 02/07/25 by Dotty Savage MD acetaminophen ER (Tylenol Arthritis Pain) 650 mg PO Q12H diphenhydramine HCl (Benadryl) 25 mg PO DAILY PRN doxycycline hyclate 20 mg PO BID lisinopril 10 mg (2 x 5 mg) PO DAILY multivitamin 1 tab PO DAILY simethicone (Gas Relief (simethicone)) 80 mg PO BID-QID PRN Tobacco use date assessed: 02/07/25 Fall risk assessment: No Falls in past year Last assessed Fall Risk: 02/07/25 Dental Screening Dental Screen Date: 02/07/25 Did you have a dental visit in the last 12 months?: Yes Did you have a dental problem in the last 6 months where you did not have access to dental care?: Yes Was dental information given to patient?: Patient has dentist HPI 6 months f/up HPI Details 74-year-old male with history of hyperte nsion, obesity, history of complete heart block with pacemaker placed, obstructive sleep apnea but i ntolerant of CPAP, prediabetes, and dyslipidemia, here today follow-up on his hypertension. The patient has a history of hypertension, currently on lisinopril 10 mg daily. Recently, the patient has experienced episodes of lightheadedness, particularly when changing positions, which may be related to low blood pressure readings. The patient reports that these symptoms are more pronounced during physical exertion, such as gardening, and may be exacerbated by his current weight loss regimen. The patient has successfully lost 29 pounds through intermittent fasting and increased physical activity, which has positively impacted his blood pressure and blood sugar levels. His A1c has decreased to 5.4%, and fasting glucose is 89 mg/dL. However, the patient has been advised to adjust his fasting routine to prevent hypoglycemic episodes during exertion. The patient has a history of hyperlipidemia, with recent improvements noted in his lipid profile. His HDL cholesterol has increased from 53 to 100 mg/dL, and LDL cholesterol has decreased. 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 He has been on this medication intermittently over the years to manage his periodontal condition. [facility] Medical History Right lateral epicondylitis Bradycardia Obesity (BMI 30.0-34.9) History of complete heart block Obstructive sleep apnea Complete heart block Hx of syncope Right bundle branch block (RBBB) Essential hypertension Tubular adenoma of colon Increased BMI Intolerance to BiPAP/CPAP Essential hypertension Impaired fasting glucose Dyslipidemia Surgical History Status post cardiac pacemaker procedure History of permanent cardiac pacemaker placement S/P placement of cardiac pacemaker H/O colonoscopy History of excision of pilonidal cyst Family History Father HTN (hypertension) Borderline diabetes mellitus Function kidney decreased Mother HTN (hypertension) Breast cancer Brother No problems noted. Brother No problems noted. Social History Housing: House Are you a primary care partner to a significant other at home: No Do you presently have visiting nurse or other home services: No Alcohol intake: current Alcohol intake frequency: a few times a month Alcohol type: wine Patient Tobacco Use Status: Former Tobacco user Years Smoked: 40 yrs e-Cigarette/Vaping Use: Never Used Second Hand Smoke Exposure: No service: No Current occupational status: retired Cognitive needs: No Hearing needs: No Vision needs: Yes Questionnaire PHQ-9 Over the last 2 weeks, how often have you been bothered by any of the following problems? 1. Little interest or pleasure in doing things: not at all 2. Feeling down, depressed, or hopeless: not at all 3. Trouble falling or staying asleep, or sleeping too much: several days 4. Feeling tired or having little energy: several days 5. Poor appetite or overeating: not at all 6. Feeling bad about yourself - or that you are a failure or have let yourself or your family down: not at all 7. Trouble concentrating on things, such as reading the newspaper or watching television: not at all 8. Moving or speaking so slowly that other people could have noticed. Or the opposite - being so fidgety or restless that you have been moving around a lot more than usual: not at all 9. Thoughts that you would be better off or of hurting yourself in some way: not at all Total score: 2 Depression Screening Interpretation: Negative Depression Screening Done: Yes Source: Developed by Drs. Nathen Sheffield, Rebecca Brown, Linwood Raphael and colleagues, with an educational luis antonio from [employer]. Thrive Questionnaire Date Thrive assessed: 07/20/24 I am a: Patient What is your living situation today?: I have a steady place to live Within the past 12 months, did the food you bought not last and you didn't have the money to get more?: Never true Within the past 12 months, did you worry whether your food would run out before you got money to buy more?: Never true Do you have trouble paying for medicines?: No Do you have trouble getting transportation to medical appointments?: No Do you have trouble paying your heating and electricity bill?: No Do you have trouble taking care of your child, family member or friend?: No Do you have trouble with day-to-day activities such as bathing, preparing meals, shopping, managing finances, etc.?: No Are you currently unemployed and looking for a job?: No Are you interested in more education?: No Please select the resources that you would like help with: None Currently or been in a relationship where the following occur: No concerns reported THRIVE Score: 0 AUDIT C Alcohol Use Questionnaire (AUDIT-C) 1. How often do you have a drink containing alcohol?: Never 2. How many drinks containing alcohol do you have on a typical day when you are drinking?: 10 or more 3. How often do you have six or more drinks on one occasion?: Daily or almost daily Total Score: 8 DAYRON-7 AMB Questionnaire DAYRON-7 Date DAYRON - 7 assessed: 07/20/24 Feeling nervous, anxious, or on edge: 1 = Several days Not being able to stop or control worryin = Not at all Worrying too much about different things: 1 = Several days Trouble relaxin = Several days Being so restless that it is hard to sit still: 0 = Not at all Becoming easily annoyed or irritable: 1 = Several days Feeling afraid as if something awful might happen: 0 = Not at all Total DAYRON-7 score (0-4 normal; 5-9 mild; 10-14 moderate; 15-21 severe): 4 Source: Developed by Drs. Nathen Sheffield, Rebecca Brown, Linwood Raphael and colleagues, with an educational luis antonio from [employer]. Review of Systems Const Denies weakness Eyes Reports no additional complaints ENT Reports no additional complaints and Reports as per HPI Card Denies chest pain, Denies chest pain with activity, Denies syncope, Denies rapid heart rate, Denies edema, Denies leg edema and Denies dyspnea Resp Denies cough and Denies dyspnea GI Reports no additional complaints Reports no additional complaints Musc Reports no additional complaints Skin/Breast Denies rash Neuro Denies Abnormal speech present, Denies syncope and Denies weakness Psych Reports no additional complaints Endo Reports no additional complaints Romeo/Lymph Reports no additional complaints Aller/Immun Reports no additional complaints Physical exam (Primary Care) Vital Signs: Last Vital Signs Temp 97.9 F 02/07/25 09:00 Pulse 61 02/07/25 09:00 Resp 16 02/07/25 09:00 BP 98/64 02/07/25 09:00 Pulse Ox 97 02/07/25 09:00 Oxygen Delivery Method Room Air 02/07/25 09:00 BMI result Body Mass Index 30.2 Tobacco/Smoking Status: Tobacco use Status Tobacco use date assessed 02/07/25 02/07/25 09:06 Patient Tobacco Use Status Former Tobacco user 02/07/25 09:02 e-Cigarette/Vaping Use Never Used 02/07/25 09:02 PHQ-9: PHQ-9 Score PHQ-9: Total score 2 02/07/25 09:27 Depression Screening Interpretation: Negative Thrive Assessment: Date of Thrive Assessment Date Thrive assessed 07/20/24 02/07/25 09:02 Currently or been in a relationship where the following occur: No concerns reported Const General: no acute distress and alert Orientation/consciousness: patient oriented x3 HENMT Ears: external ears normal General nose exam: Normal external nose present Mouth: Normal oral and palatal mucosa present and moist mucous membranes Eyes General: appearance normal, both eyes and all related structures Conjunctivae: conjunctivae normal Sclerae: sclerae normal Pupils: Equal, round and reactive pupils present EOM: EOMs intact bilaterally Neck Neck: Yes full ROM, Yes no lymphadenopathy and Yes supple Resp Effort & Inspection: normal respiratory effort and able to speak in complete sentences Auscultation: clear to auscultation bilaterally Cardio Rate: regular rate Rhythm: regular rhythm Heart sounds: S1 normal heart sound present and S2 normal heart sound present GI Palpation (GI): Soft to palpation, nontender and no masses Auscultation: normal bowel sounds General: Yes no CVA tenderness Male General Exam: Yes normal external exam Back/Spine/Pelvis Back: no CVA tenderness and No back tenderness Skin General skin exam: no rashes or lesions noted Neuro General: patient oriented x3, gait normal, tone normal, moves all extremities, Normal light touch and pain sensation and no focal motor deficits Cranial nerves: Yes CN's II-XII intact bilaterally and Yes Equal, round and reactive pupils present Cognition (Neuro): normal cognition Speech: No Abnormal speech present Extrem General: Yes no clubbing, cyanosis or edema and Yes no calf tenderness Psych Appearance: grossly normal and well kempt Mental Status: mental status grossly normal Speech and movement: Normal speech and movement present Affect: normal affect Results Reviewed Results Reviewed: Name: Mert Gonzalez Age/Sex: 74/M : 1950 Unit#: [id number] Attend Dr: Dotty Savage MD Re02/03/25 Status: DEP REF Location: [facility] Disch: SPEC : [id number] SAMMIE: 02/03/25 STATUS: COMP REQ : [id number] RECD: 02/03/[address]: Dotty Savage MD COMP: 02/03/25 ENTERED: 02/03/[address] [facility] [address]: ORDERED: Met Prof Fast, AST, ALT, Lipid Panel, Vitamin D 25-OH Test Result Flag Reference Sodium 145 135-145 mmol/L Potassium 4.5 3.3-5.1 mmol/L CL 109 H 96-108 mmol/L CO2 28 22-29 mmol/L Gap 13 12-20 BUN 22 H 9-16 mg/dL Creat 0.86 0.5-1.4 mg/dL eGFR > 60 Chronic Kidney Disease: Estimated GFR < 60 mL/min/1.73m2 Severe Kidney Disease: Estimated GFR < 15 mL/min/1.73m2 FBS 89 60-99 mg/dL CA 9.5 8.4-10.2 mg/dL AST (GOT) 48 H 5-37 U/L ALT (GPT) 55 H 0-40 U/L Triglyceride 77 <150 mg/dL Desirable Triglyceride: less than 150 mg/dL Borderline High Triglyceride 150-199 mg/dL High Triglyceride: 200-499 mg/dL Very High Triglyceride: greater than or equal to 5OO mg/dL Cholesterol 204 H <200 mg/dL Desirable Cholesterol: less than 200 mg/dL Borderline High Cholesterol: 200-239 mg/dL High Cholesterol: greater than 239 mg/dL LDL Calculated 89 <100 mg/dL Desirable LDL: less than 100 mg/dL Near Optimal/Above Optimal LDL: 110-129 mg/dL Borderline High LDL: 130-159 mg/dL High LDL: 160-189 mg/dL Very High LDL: greater than or equal to 190 mg/dL HDL 100 >40 mg/dL Desirable HDL: greater than 40 mg/dL Note: This HDL assay may give artificially low results in patients with liver disease. Vitamin D 25-OH 98.3 >30 ng/mL Health Based Reference Values* < 20 ng/mL Deficient 20-30 ng/mL Insufficient > 30 ng/mL Sufficient Coding Level of Care Code Est Pt Level 4 (62565) Complex EM visit Add On G2211 Diagnoses Essential hypertension I10 Dyslipidemia E78.5 Impaired fasting glucose R73.01 Assessment & Plan Assessment & Plan (1) Essential hypertension: Code(s): I10 - Essential (primary) hypertension Category: Medical Plan: Blood pressure on the low side, has been having intermittent episodes of lightheadedness with position changes. Will decrease lisinopril to 5 mg taken once a day. Advised to get his blood pressure checked after a week , and goal blood pressure of less than 130/80 (2) Dyslipidemia: Code(s): E78.5 - Hyperlipidemia, unspecified Category: Medical Plan: Reviewed recent fasting lipid profile with patient with levels within normal limits . Continue adherence to low-cholesterol diet and regular exercise. Advised patient to make healthy food choices, eat more fruits, vegetables, whole grains, wild caught fish and low-fat dairy. Limit amount of meat and f ried or fatty food products, as well as processed foods and fast foods. (3) Impaired fasting glucose: Code(s): R73.01 - Impaired fasting glucose Category: Medical Plan: Latest fasting glucose within normal limits with hemoglobin A1c at 5 point. Continue with adherence to healthy habits and exercise
[2025-02-07 09:00] VITALS: BP 98/64; PULSE 61; RESP 16; TEMP 36.6; O2SAT 97; BMI 30.2
== END 2025-02-07 13:24 | disposition home or self-care (01) ==
LOC: HO.HMCC 08:57
PROVIDERS: PCP Internal Medicine; Visit Provider Internal Medicine
DX: I10 Essential (primary) hypertension (principal); E78.5 Hyperlipidemia, unspecified; R73.01 Impaired fasting glucose

== ENCOUNTER → 2025-02-07 08:55 | Outpatient (BNVA) | payer MEDICARE, SELFPAY | PROVIDERS: PCP Internal Medicine; Visit Provider Internal Medicine | DX: I10 Essential (primary) hypertension (principal); E66.9 Obesity, unspecified; G47.33 Obstructive sleep apnea (adult) (pediatric); E78.5 Hyperlipidemia, unspecified; R73.01 Impaired fasting glucose; Z95.0 Presence of cardiac pacemaker; Z99.89 Dependence on other enabling machines and devices; Z68.30 Body mass index [BMI] 30.0-30.9, adult | CPT/HCPCS: 96127; 99212 ==

== ENCOUNTER → 2025-04-13 15:20 | Outpatient (BNV) | payer MEDICARE, SELFPAY | PROVIDERS: PCP Internal Medicine; Visit Provider Internal Medicine | DX: Z45.018 Encounter for adjustment and management of other part of cardiac pacemaker (principal) | CPT/HCPCS: 93294 ==